=== PATIENT | female | born 1930 | race Caucasian/White ===

== ENCOUNTER 2017-10-02 10:52 | Inpatient (IN) | payer MEDICARE, OTHER ==
[~2017-10-02] VITALS: Ht 175.3 cm; Wt 89.3 kg
[~2017-10-02 10:52] MED LIST: ACET325 PO; ACET500 PO; ALBU2SYA PO; ALBU3IS INH; ALBU90OI INH; ALBU90OI6 INH; ALBU90OI61 INH; AMOX875 PO; ASCO500 PO; ATOR40TA PO; ATOR80 PO; AZIT250 PO; Ativan1 MG PO; BISA10S PR; CALCAVITDA PO; CALCIT950 PO; CEFP200 PO; CEFU500 PO; CEPH500 PO; CVS DISPOSABLE399 ML PR; Calcium-Mag-Zi1 EACH PO; Colace100 MG PO; DIGO.125 PO; DIGOX125 MCG PO; DILT120 PO; DOCU100 PO; DULERA 200 MCG/13 GM; DULERA 200 MCG/13 GM INH; ELIQUIS2.5 MG; FERR325; FLUSAL1005 IH; FLUSAL2505 IH; FLUSAL2505 INH; Ferrous Sulfat325 M2 PO; GABA300 PO; GABA300T24 PO; GEMF600 PO; Glucosamine-Ch1 EA23 PO; HYDACE10 PO; HYDACE10B PO; HYDACE5 PO; HYDR1TAB94 PO; INSLIS75I; INSU100I6 SC; IRON 65MG PO; LAVAP17G PO; LEVFLO250 PO; LEVFLO500 PO; LEVSOD75 PO; LISI10; LORA1 PO; MAGOXI400 PO; MECL25 PO; MEPRAZOLE; METO25 PO; METO50 PO; METO50ER PO; MULTIVITAMIN; MULVIT PO; MULVITMINF PO; Milk Of Ma800 MG/5 M PO; Millipred5 MG PO; NABU500 PO; OMEP20ER PO; OMEP40CA12 PO; ONDA8ODT MM; ONGLYZA2.5 MG PO; OXYC5 PO; OXYGEN; Omeprazole20 M1; Omeprazole20 M1 PO; PRED10 PO; PRED20 PO; Percocet 5-3251 EACH PO; Prednisone20 MG PO; Prilosec Otc20 MG PO; QUET100 PO; QUET200 PO; QUET25 PO; QUET300; QUET300 PO; SACC250C PO; SAXA2.5T PO; SERT50 PO; SIMV40; SIMV40 PO; SIMVASTATIN; SPIRIVA; Senna8.6 MG PO; Seroquel25 MG PO; TIOT18 INH; TRADJENTA5 MG PO; Tylenol325 MG PO; VENL37.5 PO; VENL37.5ER; VENL37.5ER PO; VENL75ER PO; VITAMIN D-32000 UNIT PO; Venlafaxine HCl75 MG PO; Ventolin5 MG/1 ML IH; Vitamin C100 MG/ML PO; WARF2 PO; WARF2.5 PO; WARF3 PO; WARF5 PO; XARELTO15 MG PO; XARELTO20 MG PO; Zithromax250 MG PO; [UNRECOGNIZED DRUG - OTHER] PO
[2017-10-02 11:22] LABS: BASOPHILS ABSOLUTE AUTO 0.04 K/mm3 (0.00-0.23); BASOPHILS PERCENT AUTO 1 % (0-2); EOSINOPHILS ABSOLUTE AUTO 0.03 K/mm3 (0.00-0.68); EOSINOPHILS PERCENT AUTO 1 % (0-6); Hematocrit 37.5 % (33.0-51.0); Hemoglobin 12.5 g/dL (11.5-16.0); IMMATURE GRAN ABSOLUTE AUTO 0.02 K/mm3 (0.00-0.10); IMMATURE GRAN PERCENT AUTO 0 % (0-1); LYMPHOCYTES PERCENT AUTO 5 % (21-46); MONOCYTES ABSOLUTE AUTO 0.45 K/mm3 (0.16-1.47); MONOCYTES PERCENT AUTO 7 % (4-13); Mean Corpuscular HGB 34.6 pg (26.0-34.0); Mean Corpuscular HGB Conc 33.3 g/dL (31.5-36.5); Mean Corpuscular Volume 104 fL (80-100); Mean Platelet Volume 11.1 fL (9.1-12.4); NEUTROPHILS ABSOLUTE AUTO 5.53 K/mm3 (1.96-9.15); NEUTROPHILS PERCENT AUTO 87 % (41-73); Platelet Count 110 K/mm3 (150-400); RDW Coefficient Variation 13.9 % (11.7-14.2); RDW Standard Deviation 53.4 fL (35.1-46.3); Red Blood Cell Count 3.61 M/mm3 (3.80-5.20); White Blood Cell Count 6.37 K/mm3 (4.00-11.30)
[2017-10-02 11:39] LABS: Albumin, Blood 3.6 g/dL (3.4-5.0); Albumin/Globulin Ratio 1.1 (0.8-1.8); Bilirubin, Total 1.3 mg/dL (0.1-1.0); Bun/Creatinine Ratio 13.9 (12.0-20.0); Calcium, Blood 8.9 mg/dL (8.5-10.1); Creatinine, Blood 1.22 mg/dL (0.40-1.00); Globulin, Blood 3.4 g/dL (2.2-4.0); Potassium, Blood 4.3 mmol/L (3.5-5.5); Troponin I 0.029 ng/mL (0.000-0.040)
[2017-10-02 12:51] LABS: PCO2 Arterial 38.9 mmHg (35-45); PO2 Arterial 63.8 mmHg (80-100); pH Blood Arterial 7.46 (7.35-7.45)
[2017-10-02] MEDS ORDERED: Nortriptyline H10 MG PO (13:09)
[2017-10-02] MEDS ORDERED: TRAZ50 PO (13:09)
[2017-10-02 16:53] LABS: Performing Lab VAMCL; Test Name PT
[2017-10-02 18:10] LABS: Source, Urine Clean Catch
[2017-10-02 18:16] LABS: Bilirubin, Urine Neg (Neg); Blood, Urine 1+ (Neg); Glucose Qualitative, Urine Neg (Neg); Ketones, Urine Neg (Neg); Leukocyte Esterase, Urine 2+ (Neg); Nitrite, Urine Neg (Neg); Protein, Urine 2+ (Neg); Specific Gravity, Urine 1.015 (1.003-1.022); Urobilinogen, Urine NORM (Normal)
[2017-10-02 18:30] LABS: Appearance, Urine Clear (Clear); Color, Urine Yellow (P-Yellow)
[2017-10-02 18:32] LABS: Bacteria Not Seen /hpf; Red Blood Cells, Urine Not Seen /hpf (0-2); Squamous Epithelial Cells Few /hpf (Few)
[2017-10-03 05:00] LABS: BASOPHILS ABSOLUTE AUTO 0.01 K/mm3 (0.00-0.23); BASOPHILS PERCENT AUTO 0 % (0-2); EOSINOPHILS PERCENT AUTO 0 % (0-6); Hematocrit 36.7 % (33.0-51.0); Hemoglobin 12.4 g/dL (11.5-16.0); IMMATURE GRAN ABSOLUTE AUTO 0.01 K/mm3 (0.00-0.10); IMMATURE GRAN PERCENT AUTO 0 % (0-1); LYMPHOCYTES ABSOLUTE AUTO 0.19 K/mm3 (0.84-5.20); LYMPHOCYTES PERCENT AUTO 4 % (21-46); MONOCYTES ABSOLUTE AUTO 0.17 K/mm3 (0.16-1.47); MONOCYTES PERCENT AUTO 3 % (4-13); Mean Corpuscular HGB 34.7 pg (26.0-34.0); Mean Corpuscular HGB Conc 33.8 g/dL (31.5-36.5); Mean Corpuscular Volume 103 fL (80-100); NEUTROPHILS ABSOLUTE AUTO 4.57 K/mm3 (1.96-9.15); NEUTROPHILS PERCENT AUTO 92 % (41-73); Platelet Count 111 K/mm3 (150-400); RDW Coefficient Variation 13.8 % (11.7-14.2); RDW Standard Deviation 52.6 fL (35.1-46.3); Red Blood Cell Count 3.57 M/mm3 (3.80-5.20); White Blood Cell Count 4.95 K/mm3 (4.00-11.30)
[2017-10-03 05:24] LABS: Albumin, Blood 3.4 g/dL (3.4-5.0); Bilirubin, Total 0.9 mg/dL (0.1-1.0); Bun/Creatinine Ratio 18.5 (12.0-20.0); Calcium, Blood 8.9 mg/dL (8.5-10.1); Creatinine, Blood 1.3 mg/dL (0.40-1.00); Globulin, Blood 3.4 g/dL (2.2-4.0); Potassium, Blood 4.2 mmol/L (3.5-5.5); Total Protein, Blood 6.8 g/dL (6.4-8.2)
[2017-10-03 08:33] LABS: International Normalized Ratio 1.39; Prothrombin Time Results 14.1 Sec (9.7-11.5)
[2017-10-04 05:38] LABS: International Normalized Ratio 1.52; Prothrombin Time Results 15.3 Sec (9.7-11.5)
[2017-10-05 05:13] LABS: International Normalized Ratio 1.94; Prothrombin Time Results 19.2 Sec (9.7-11.5)
[2017-10-05 08:57] LABS: BASOPHILS ABSOLUTE AUTO 0.01 K/mm3 (0.00-0.23); BASOPHILS PERCENT AUTO 0 % (0-2); EOSINOPHILS PERCENT AUTO 0 % (0-6); Hematocrit 38.8 % (33.0-51.0); Hemoglobin 12.8 g/dL (11.5-16.0); IMMATURE GRAN ABSOLUTE AUTO 0.02 K/mm3 (0.00-0.10); IMMATURE GRAN PERCENT AUTO 0 % (0-1); LYMPHOCYTES ABSOLUTE AUTO 0.29 K/mm3 (0.84-5.20); LYMPHOCYTES PERCENT AUTO 5 % (21-46); MONOCYTES ABSOLUTE AUTO 0.25 K/mm3 (0.16-1.47); MONOCYTES PERCENT AUTO 5 % (4-13); Mean Corpuscular HGB 34.5 pg (26.0-34.0); Mean Corpuscular Volume 105 fL (80-100); NEUTROPHILS PERCENT AUTO 90 % (41-73); Platelet Count 164 K/mm3 (150-400); RDW Coefficient Variation 13.6 % (11.7-14.2); RDW Standard Deviation 52.9 fL (35.1-46.3); Red Blood Cell Count 3.71 M/mm3 (3.80-5.20); White Blood Cell Count 5.57 K/mm3 (4.00-11.30)
[2017-10-05 09:11] LABS: Albumin, Blood 3.3 g/dL (3.4-5.0); Albumin/Globulin Ratio 0.9 (0.8-1.8); Bilirubin, Total 0.4 mg/dL (0.1-1.0); Bun/Creatinine Ratio 23.2 (12.0-20.0); Calcium, Blood 8.7 mg/dL (8.5-10.1); Creatinine, Blood 1.51 mg/dL (0.40-1.00); Globulin, Blood 3.5 g/dL (2.2-4.0); Potassium, Blood 3.6 mmol/L (3.5-5.5); Total Protein, Blood 6.8 g/dL (6.4-8.2)
[2017-10-06 05:04] LABS: International Normalized Ratio 2.73; Prothrombin Time Results 26.6 Sec (9.7-11.5)
[2017-10-07 04:57] LABS: BASOPHILS PERCENT AUTO 0 % (0-2); EOSINOPHILS PERCENT AUTO 0 % (0-6); Hematocrit 37.2 % (33.0-51.0); Hemoglobin 12.9 g/dL (11.5-16.0); IMMATURE GRAN ABSOLUTE AUTO 0.04 K/mm3 (0.00-0.10); IMMATURE GRAN PERCENT AUTO 1 % (0-1); LYMPHOCYTES ABSOLUTE AUTO 0.38 K/mm3 (0.84-5.20); LYMPHOCYTES PERCENT AUTO 7 % (21-46); MONOCYTES ABSOLUTE AUTO 0.27 K/mm3 (0.16-1.47); MONOCYTES PERCENT AUTO 5 % (4-13); Mean Corpuscular HGB 34.7 pg (26.0-34.0); Mean Corpuscular HGB Conc 34.7 g/dL (31.5-36.5); Mean Platelet Volume 11.3 fL (9.1-12.4); NEUTROPHILS ABSOLUTE AUTO 4.56 K/mm3 (1.96-9.15); NEUTROPHILS PERCENT AUTO 87 % (41-73); Platelet Count 176 K/mm3 (150-400); RDW Coefficient Variation 13.1 % (11.7-14.2); RDW Standard Deviation 48.4 fL (35.1-46.3); Red Blood Cell Count 3.72 M/mm3 (3.80-5.20); White Blood Cell Count 5.25 K/mm3 (4.00-11.30)
[2017-10-07 04:58] LABS: Mean Corpuscular Volume 100 fL (80-100)
[2017-10-07 05:14] LABS: Prothrombin Time Results 40.5 Sec (9.7-11.5)
[2017-10-07 05:16] LABS: Albumin, Blood 3.1 g/dL (3.4-5.0); Albumin/Globulin Ratio 0.9 (0.8-1.8); Bilirubin, Total 0.5 mg/dL (0.1-1.0); Bun/Creatinine Ratio 33.6 (12.0-20.0); Creatinine, Blood 1.43 mg/dL (0.40-1.00); Globulin, Blood 3.3 g/dL (2.2-4.0); Potassium, Blood 3.1 mmol/L (3.5-5.5); Total Protein, Blood 6.4 g/dL (6.4-8.2)
[2017-10-07 05:17] LABS: International Normalized Ratio 4.27
[2017-10-08 04:34] LABS: BASOPHILS PERCENT AUTO 0 % (0-2); EOSINOPHILS PERCENT AUTO 0 % (0-6); Hematocrit 38.3 % (33.0-51.0); Hemoglobin 13.1 g/dL (11.5-16.0); IMMATURE GRAN ABSOLUTE AUTO 0.07 K/mm3 (0.00-0.10); IMMATURE GRAN PERCENT AUTO 1 % (0-1); LYMPHOCYTES ABSOLUTE AUTO 0.35 K/mm3 (0.84-5.20); LYMPHOCYTES PERCENT AUTO 5 % (21-46); MONOCYTES ABSOLUTE AUTO 0.25 K/mm3 (0.16-1.47); MONOCYTES PERCENT AUTO 4 % (4-13); Mean Corpuscular HGB 34.1 pg (26.0-34.0); Mean Corpuscular HGB Conc 34.2 g/dL (31.5-36.5); Mean Corpuscular Volume 100 fL (80-100); Mean Platelet Volume 11.2 fL (9.1-12.4); NEUTROPHILS ABSOLUTE AUTO 5.76 K/mm3 (1.96-9.15); NEUTROPHILS PERCENT AUTO 90 % (41-73); Platelet Count 194 K/mm3 (150-400); RDW Coefficient Variation 13.1 % (11.7-14.2); RDW Standard Deviation 47.5 fL (35.1-46.3); Red Blood Cell Count 3.84 M/mm3 (3.80-5.20); White Blood Cell Count 6.43 K/mm3 (4.00-11.30)
[2017-10-08 04:50] LABS: Bun/Creatinine Ratio 33.3 (12.0-20.0); Calcium, Blood 8.1 mg/dL (8.5-10.1); Creatinine, Blood 1.65 mg/dL (0.40-1.00)
[2017-10-08 04:51] LABS: Prothrombin Time Results 54.2 Sec (9.7-11.5)
[2017-10-08 04:56] LABS: International Normalized Ratio 5.81
[2017-10-09 05:01] LABS: Prothrombin Time Results 54.4 Sec (9.7-11.5)
[2017-10-09 05:04] LABS: International Normalized Ratio 5.84
[2017-10-09 08:55] LABS: Bun/Creatinine Ratio 44.1 (12.0-20.0); Calcium, Blood 8.5 mg/dL (8.5-10.1); Creatinine, Blood 1.43 mg/dL (0.40-1.00); Potassium, Blood 3.9 mmol/L (3.5-5.5)
[2017-10-10 08:22] LABS: Prothrombin Time Results 38.8 Sec (9.7-11.5)
[2017-10-10 08:31] LABS: Bun/Creatinine Ratio 46.1 (12.0-20.0); Calcium, Blood 8.7 mg/dL (8.5-10.1); Creatinine, Blood 1.41 mg/dL (0.40-1.00); Potassium, Blood 4.4 mmol/L (3.5-5.5)
[2017-10-10 08:44] LABS: International Normalized Ratio 4.08
[2017-10-10] MEDS ORDERED: FLONASE ALLERG9.9 ML (16:57)
[2017-10-10] MEDS ORDERED: FURO40 PO (16:57)
[2017-10-10] MEDS ORDERED: Effer-K 10 Meq10 MEQ PO (16:59)
[2017-10-10] MEDS ORDERED: LEVEMIR FL100 UNIT/1 SC (16:59)
[2017-10-10] MEDS ORDERED: PRED20 PO (17:09)
[2017-10-10] MEDS ORDERED: TEMA15 PO (17:09)
[2017-10-10] MEDS ORDERED: FLUT1DIS5 INH (17:25)
[2017-10-10] MEDS ORDERED: POTCHL10ER PO (17:36)
== END 2017-10-10 18:40 | disposition home or self-care (01) | DRG 193 ==
LOC: ER 10:52 → MEDS 12:32
PROVIDERS: Emergency Medicine; Internal Medicine; Internal Medicine Endocrinology, Diabetes & Metabolism; Pharmacist
DX: J18.9 Pneumonia, unspecified organism (principal); J96.21 Acute and chronic respiratory failure with hypoxia; I50.33 Acute on chronic diastolic (congestive) heart failure; J44.1 Chronic obstructive pulmonary disease with (acute) exacerbation; I13.0 Hypertensive heart and chronic kidney disease with heart failure and stage 1 through stage 4 chronic kidney disease, or unspecified chronic kidney disease; Z86.711 Personal history of pulmonary embolism; Z79.01 Long term (current) use of anticoagulants; Z99.81 Dependence on supplemental oxygen; E11.22 Type 2 diabetes mellitus with diabetic chronic kidney disease; N18.3 Chronic kidney disease, stage 3 (moderate); E78.5 Hyperlipidemia, unspecified; D50.9 Iron deficiency anemia, unspecified; K21.9 Gastro-esophageal reflux disease without esophagitis; I48.0 Paroxysmal atrial fibrillation; Z86.73 Personal history of transient ischemic attack (TIA), and cerebral infarction without residual deficits; D69.6 Thrombocytopenia, unspecified; I25.10 Atherosclerotic heart disease of native coronary artery without angina pectoris; I48.2 Chronic atrial fibrillation
CPT/HCPCS: 36415; 36416; 36600; 71046; 80048; 80053; 81001; 82803; 82947; 83605; 83880; 84484; 85025; 85610; 87040; 87086; 93005; 93010; 94640; 94644; 94664; 94667; 94668; 94760; 96374; 96375; 97116; 97161; 98960; 99285; G8978; G8979; G8980; J0456; J0696; J1815; J1817; J1940; J2920; J2930; J3430; J7030; J7050

== ENCOUNTER 2018-06-07 13:24 | Observation (INO) | payer MEDICARE, OTHER ==
[~2018-06-07] VITALS: Ht 177.8 cm; Wt 83.4 kg
[~2018-06-07 13:24] MED LIST changes: +Effer-K 10 Meq10 MEQ PO; +FLONASE ALLERG9.9 ML; +FLUT1DIS5 INH; +FURO40 PO; +LEVEMIR FL100 UNIT/1 SC; +Nortriptyline H10 MG PO; +POTCHL10ER PO; +TEMA15 PO; +TRAZ50 PO
[2018-06-07 13:57] LABS: BASOPHILS ABSOLUTE AUTO 0.04 K/mm3 (0.00-0.23); BASOPHILS PERCENT AUTO 1 % (0-2); EOSINOPHILS ABSOLUTE AUTO 0.13 K/mm3 (0.00-0.68); EOSINOPHILS PERCENT AUTO 3 % (0-6); Hematocrit 40.5 % (33.0-51.0); Hemoglobin 13.4 g/dL (11.5-16.0); IMMATURE GRAN ABSOLUTE AUTO 0.01 K/mm3 (0.00-0.10); IMMATURE GRAN PERCENT AUTO 0 % (0-1); LYMPHOCYTES ABSOLUTE AUTO 1.29 K/mm3 (0.84-5.20); LYMPHOCYTES PERCENT AUTO 29 % (21-46); MONOCYTES ABSOLUTE AUTO 0.28 K/mm3 (0.16-1.47); MONOCYTES PERCENT AUTO 6 % (4-13); Mean Corpuscular HGB 34.7 pg (26.0-34.0); Mean Corpuscular HGB Conc 33.1 g/dL (31.5-36.5); Mean Corpuscular Volume 105 fL (80-100); Mean Platelet Volume 9.8 fL (9.1-12.4); NEUTROPHILS ABSOLUTE AUTO 2.76 K/mm3 (1.96-9.15); NEUTROPHILS PERCENT AUTO 61 % (41-73); NRBC ABSOLUTE 0.02 K/mm3 (0.00-0.02); NRBC Auto 0.4 /100 WBC (0.0-0.2); Platelet Count 162 K/mm3 (150-400); RDW Coefficient Variation 15.8 % (11.7-14.2); RDW Standard Deviation 59.7 fL (35.1-46.3); Red Blood Cell Count 3.86 M/mm3 (3.80-5.20); White Blood Cell Count 4.51 K/mm3 (4.00-11.30)
[2018-06-07] MEDS ORDERED: PRAZ1 PO (13:57)
[2018-06-07 14:10] LABS: Alanine Aminotransfer (ALT/SGP 40 U/L (12-78); Albumin, Blood 3.5 g/dL (3.4-5.0); Albumin/Globulin Ratio 1.2 (0.8-1.8); Alk Phos 114 U/L (50-136); Anion Gap 9 mmol/L (6-16); Aspartate Aminotrans (AST/SGOT 33 U/L (12-37); Bilirubin, Total 0.5 mg/dL (0.1-1.0); Blood Urea Nitrogen 27 mg/dL (8-24); Bun/Creatinine Ratio 22.9 (12.0-20.0); CO2, Blood 27 mmol/L (21-32); Calcium, Blood 8.8 mg/dL (8.5-10.1); Chloride, Blood 104 mmol/L (98-108); Creatinine, Blood 1.18 mg/dL (0.40-1.00); Globulin, Blood 2.9 g/dL (2.2-4.0); Glomerular Filtration Rate 46 (60-); Glucose, Blood 88 mg/dL (70-99); Potassium, Blood 4.4 mmol/L (3.5-5.5); Sodium, Blood 140 mmol/L (136-145); Total Protein, Blood 6.4 g/dL (6.4-8.2); Troponin I <0.015 ng/mL (0.000-0.040)
[2018-06-07 14:42] LABS: Prothrombin Time Results 49.8 Sec (9.7-11.5)
[2018-06-07 15:03] LABS: International Normalized Ratio 5.48
[2018-06-07 16:46] LABS: Magnesium, Blood 1.9 mg/dL (1.6-2.4)
[2018-06-07 16:49] LABS: Thyroid Stimulating Hormone 1.13 uIU/mL (0.360-4.800)
--- NOTE | 2018-06-07 17:23 | NUR ---
Report received from ERROL Aguial. anticipate arrival of pt to PCU 16 shortly.
[2018-06-07] MEDS ORDERED: VITAMIN K-1500 MCG SL (17:55)
--- NOTE | 2018-06-07 19:14 | NUR ---
Received the pt from the ED in good mood, pleasantly conversant, and without complaints of discomfort or pain; however, upon assessment she states that she is still having some mild pressure in her chest, like "someone is sitting on my chest". Nitroglycerin paste applied as ordered. The pt states that the sublingual NTG relieved her pain in the ED, and did not give her a headache. Vital signs are stable. No evidence of dyspnea, tachypnea at rest. She was very hungry she said, and ate all of her dinner tray without any nausea/vomiting. Purple armband applied as the pt did confirm her wishes for "DNR" status.
[2018-06-08 02:58] LABS: Bun/Creatinine Ratio 25.2 (12.0-20.0); Calcium, Blood 8.3 mg/dL (8.5-10.1); Creatinine, Blood 1.39 mg/dL (0.40-1.00); Potassium, Blood 4.2 mmol/L (3.5-5.5)
[2018-06-08 02:59] LABS: Prothrombin Time Results 43.2 Sec (9.7-11.5)
[2018-06-08 03:00] LABS: International Normalized Ratio 4.69
--- NOTE | 2018-06-08 05:15 | NUR ---
SHIFT SUMMARY: PATIENT C/O 05/01 CHEST PRESSURE BEGINNING OF SHIFT, AFTER SLEEP MEDICATION AND RELAXATION TECHNIQUES PATIENT ACHIEVED FULL PAIN RELIEF FOR REMAINDER OF SHIFT. VSS, CALL LIGHT WITHIN REACH, BED LOW AND LOCKED.
[2018-06-08] MEDS ORDERED: ASPI81CH PO (10:22)
[2018-06-08] MEDS ORDERED: NITR.4SL PO (10:23)
[2018-06-08] MEDS ORDERED: ALUM-MAG HYDRO360 ML PO (10:24)
--- NOTE | 2018-06-08 13:23 | NUR ---
discharge Pt discharged home. Pt spouce had the car keys. car was parked out back. Needed to wait for her to get here with the keys. Had to use the distress horn button to locate her car because she didn't recognize it. This nurse had to guide her throught he parking lot. Her spouce is a very sharp baron man with a four wheeled walker. As this nusre was w/c her out she started crying becuase she "didn't" have a heart attack. Pt seems very unhappy and forgetful. Continue pot.
== END 2018-06-08 13:11 | disposition home or self-care (01) ==
LOC: ER 13:24 → PCU 13:25
PROVIDERS: Emergency Medicine; Nurse Practitioner Acute Care; ADMIT Internal Medicine
DX: R07.9 Chest pain, unspecified (principal); I48.2 Chronic atrial fibrillation; J44.9 Chronic obstructive pulmonary disease, unspecified; I10 Essential (primary) hypertension; N18.3 Chronic kidney disease, stage 3 (moderate); J96.11 Chronic respiratory failure with hypoxia; I13.0 Hypertensive heart and chronic kidney disease with heart failure and stage 1 through stage 4 chronic kidney disease, or unspecified chronic kidney disease; I50.32 Chronic diastolic (congestive) heart failure; E11.22 Type 2 diabetes mellitus with diabetic chronic kidney disease; E78.5 Hyperlipidemia, unspecified; D50.9 Iron deficiency anemia, unspecified; K21.9 Gastro-esophageal reflux disease without esophagitis; M81.0 Age-related osteoporosis without current pathological fracture; M19.90 Unspecified osteoarthritis, unspecified site; Z88.1 Allergy status to other antibiotic agents; Z88.8 Allergy status to other drugs, medicaments and biological substances; Z79.899 Other long term (current) drug therapy; Z79.01 Long term (current) use of anticoagulants
CPT/HCPCS: 36415; 71046; 80048; 80053; 83735; 84443; 84484; 85025; 85610; 93005; 93010; 94760; 96374; 96375; 99285-25; G0378; J2405; J3010; J7030

== ENCOUNTER 2018-12-02 13:16 | Inpatient (IN) | payer MEDICARE, OTHER ==
[~2018-12-02] VITALS: Ht 175.3 cm; Wt 84.4 kg
[~2018-12-02 13:16] MED LIST changes: -ALBU90OI INH; +ALUM-MAG HYDRO360 ML PO; +ASPI81CH PO; -LEVSOD75 PO; -WARF2 PO; -WARF3 PO
[2018-12-02 13:43] LABS: BASOPHILS ABSOLUTE AUTO 0.05 K/mm3 (0.00-0.23); BASOPHILS PERCENT AUTO 1 % (0-2); EOSINOPHILS PERCENT AUTO 2 % (0-6); Hematocrit 34.4 % (33.0-51.0); Hemoglobin 11.5 g/dL (11.5-16.0); IMMATURE GRAN ABSOLUTE AUTO 0.02 K/mm3 (0.00-0.10); IMMATURE GRAN PERCENT AUTO 0 % (0-1); LYMPHOCYTES ABSOLUTE AUTO 2.08 K/mm3 (0.84-5.20); LYMPHOCYTES PERCENT AUTO 24 % (21-46); MONOCYTES ABSOLUTE AUTO 0.77 K/mm3 (0.16-1.47); MONOCYTES PERCENT AUTO 9 % (4-13); Mean Corpuscular HGB 34.3 pg (26.0-34.0); Mean Corpuscular HGB Conc 33.4 g/dL (31.5-36.5); Mean Corpuscular Volume 103 fL (80-100); Mean Platelet Volume 10.9 fL (9.1-12.4); NEUTROPHILS ABSOLUTE AUTO 5.74 K/mm3 (1.96-9.15); NEUTROPHILS PERCENT AUTO 65 % (41-73); Platelet Count 218 K/mm3 (150-400); RDW Standard Deviation 55.8 fL (35.1-46.3); Red Blood Cell Count 3.35 M/mm3 (3.80-5.20); White Blood Cell Count 8.86 K/mm3 (4.00-11.30)
[2018-12-02 13:58] LABS: Base Excess Venous 1.8 mmol/L; Bicarbonate Venous 25.9 mmol/L (24.0-30.0); PCO2 Venous 37.2 mmHg (38-42); PO2 Venous 62.3 mmHg (38-42); pH Blood Venous 7.45 (7.34-7.37)
[2018-12-02 14:03] LABS: International Normalized Ratio 2.3; Prothrombin Time Results 22.6 Sec (9.7-11.5)
[2018-12-02 14:26] LABS: Troponin I <0.015 ng/mL (0.000-0.040)
[2018-12-02 14:28] LABS: Alanine Aminotransfer (ALT/SGP 44 U/L (12-78); Albumin, Blood 3.8 g/dL (3.4-5.0); Albumin/Globulin Ratio 1.2 (0.8-1.8); Alk Phos 125 U/L (50-136); Anion Gap 10 mmol/L (6-16); Aspartate Aminotrans (AST/SGOT 37 U/L (12-37); Bilirubin, Total 0.9 mg/dL (0.1-1.0); Blood Urea Nitrogen 39 mg/dL (8-24); Bun/Creatinine Ratio 20.7 (12.0-20.0); CO2, Blood 26 mmol/L (21-32); Calcium, Blood 9.7 mg/dL (8.5-10.1); Chloride, Blood 99 mmol/L (98-108); Creatinine, Blood 1.88 mg/dL (0.40-1.00); Globulin, Blood 3.2 g/dL (2.2-4.0); Glomerular Filtration Rate 27 (60-); Glucose, Blood 83 mg/dL (70-99); Potassium, Blood 5.3 mmol/L (3.5-5.5); Sodium, Blood 135 mmol/L (136-145)
[2018-12-02] MEDS ORDERED: Lipitor80 MG PO (15:14)
[2018-12-02] MEDS ORDERED: Amlodipine Besy10 MG PO (15:14)
[2018-12-02] MEDS ORDERED: BUDE10.22 INH (15:15)
[2018-12-02] MEDS ORDERED: BUPROPION XL150 MG PO (15:16)
[2018-12-02] MEDS ORDERED: ESCI10 PO (15:17)
[2018-12-02] MEDS ORDERED: METO50 PO (15:18)
[2018-12-02] MEDS ORDERED: LEVSOD100 PO (15:18)
[2018-12-02] MEDS ORDERED: Nitrostat0.3 MG SL (15:19)
[2018-12-02] MEDS ORDERED: OXYC5 PO (15:20)
[2018-12-02] MEDS ORDERED: PRAZ1 PO (15:21)
[2018-12-02] MEDS ORDERED: WARF3 PO (15:22)
[2018-12-02] MEDS ORDERED: WARF2 PO (15:22)
[2018-12-02] MEDS ORDERED: ALBU90OI INH (15:39)
[2018-12-02] MEDS ORDERED: Vitamin K100 MCG PO (15:40)
[2018-12-02] MEDS ORDERED: Ferrous Sulfat325 M2 PO (15:40)
[2018-12-02] MEDS ORDERED: ASCORBIC ACID PO (15:41)
[2018-12-02] MEDS ORDERED: HYDROCHLOROTHIAZIDE PO (15:44)
[2018-12-02] MEDS ORDERED: OSTEO BI-FLEX PO (15:45)
[2018-12-02] MEDS ORDERED: Nystatin15 GM TOP (15:45)
--- NOTE | 2018-12-02 18:51 | NUR ---
PT ADMITTED FROM ED 1712 VIA STRETCHER- BED SLIDE TX. PT IS ALERT AND ORIENTED. GOT UP TO BSC 2 SBA, VERY POOR COORDINATION AND SIGNIFICANT WEAKNESS, UNABLE TO AMBULATE. VOIDED BSC LG AMOUNT. O2 2L, EXERTIONAL DYNPNEA. ORIENTED TO ROOM SET UP AND SAFETY, GOT WATER.
--- NOTE | 2018-12-03 01:49 | NUR ---
12/02/18 8925 Kell Acosta notified of pt increased lactic acid of 3.2. Orders received. 2300 Pt started on slow 100cc an hour NS bolus for a total of 500cc. Pt educated why she was getting fluids. Pt agrees.
[2018-12-03 05:06] LABS: BASOPHILS PERCENT AUTO 0 % (0-2); EOSINOPHILS PERCENT AUTO 0 % (0-6); Hematocrit 27.9 % (33.0-51.0); Hemoglobin 9.2 g/dL (11.5-16.0); IMMATURE GRAN PERCENT AUTO 0 % (0-1); LYMPHOCYTES ABSOLUTE AUTO 0.17 K/mm3 (0.84-5.20); LYMPHOCYTES PERCENT AUTO 7 % (21-46); MONOCYTES ABSOLUTE AUTO 0.06 K/mm3 (0.16-1.47); MONOCYTES PERCENT AUTO 2 % (4-13); Mean Corpuscular HGB 33.5 pg (26.0-34.0); Mean Corpuscular Volume 102 fL (80-100); Mean Platelet Volume 10.1 fL (9.1-12.4); NEUTROPHILS PERCENT AUTO 91 % (41-73); Platelet Count 130 K/mm3 (150-400); RDW Coefficient Variation 15.2 % (11.7-14.2); Red Blood Cell Count 2.75 M/mm3 (3.80-5.20); White Blood Cell Count 2.53 K/mm3 (4.00-11.30)
--- NOTE | 2018-12-03 05:09 | NUR ---
Rn summary: Patient is alert and oriented. Pt up to BSC this am with 2 assist. Pt continues to be SOB with activity and has generalized weakness. Pt remains on 2 liters O2, sats 93-94% at rest, did dip to 88% whan up to BSC. Pt has long history of insomnia. Pt did rest 2 hours after melatonin 3mg given tonight. Pt continues with generalized edema in hips and legs. Pt states she feels a little better this am. Call light in reach.
[2018-12-03 05:20] LABS: International Normalized Ratio 1.93; Prothrombin Time Results 19.3 Sec (9.7-11.5)
[2018-12-03 05:31] LABS: Albumin, Blood 2.9 g/dL (3.4-5.0); Bilirubin, Total 0.7 mg/dL (0.1-1.0); Bun/Creatinine Ratio 23.1 (12.0-20.0); Calcium, Blood 8.6 mg/dL (8.5-10.1); Creatinine, Blood 1.99 mg/dL (0.40-1.00); Globulin, Blood 2.9 g/dL (2.2-4.0); Magnesium, Blood 2.6 mg/dL (1.6-2.4); Potassium, Blood 5.6 mmol/L (3.5-5.5); Total Protein, Blood 5.8 g/dL (6.4-8.2)
--- NOTE | 2018-12-03 07:45 | NUR ---
CALLED DR. SANDOVAL TO REPORT PT'S GFR, BUN AND CREATININE. NO NEW ORDERS RECEIVED.
[2018-12-03 13:22] LABS: Adenovirus Not Detected (NOT DETECT); Bordetella pertussis Not Detected (NOT DETECT); Chlamydophila pneumoniae Not Detected (NOT DETECT); Coronavirus 229E Not Detected (NOT DETECT); Coronavirus HKU1 Not Detected (NOT DETECT); Coronavirus NL63 Not Detected (NOT DETECT); Coronavirus OC43 Not Detected (NOT DETECT); Human Metapneumovirus Not Detected (NOT DETECT); Human Rhinovirus/Enterovirus Not Detected (NOT DETECT); Influenza A Not Detected (NOT DETECT); Influenza A/2009-H1 Not Detected (NOT DETECT); Influenza A/H1 Not Detected (NOT DETECT); Influenza A/H3 Not Detected (NOT DETECT); Influenza B Not Detected (NOT DETECT); Mycoplasma pneumoniae Not Detected (NOT DETECT); Parainfluenza Virus 1 Not Detected (NOT DETECT); Parainfluenza Virus 2 Not Detected (NOT DETECT); Parainfluenza Virus 3 Not Detected (NOT DETECT); Parainfluenza Virus 4 Not Detected (NOT DETECT); Respiratory Syncytial Virus Not Detected (NOT DETECT)
[2018-12-03 13:32] LABS: Bun/Creatinine Ratio 24.7 (12.0-20.0); Calcium, Blood 8.9 mg/dL (8.5-10.1); Creatinine, Blood 1.9 mg/dL (0.40-1.00); Potassium, Blood 5.3 mmol/L (3.5-5.5)
--- NOTE | 2018-12-03 15:19 | NUR ---
Upon receiving an admit referral, I visited patient and I found patient is lying in bed and alert. Patient openly shares about her medical struggles, her yazdanism journey ([facility] to [facility] to [place]) and her emotional struggles brought on by her physical limitations. As we were talking and therapeutic alliance was being established my time was cut short by a patient's pressing doctor visit. I will continue to remain available to patient and family.
--- NOTE | 2018-12-03 17:26 | NUR ---
SHIFT SUMMARY OX3; 1 PERSON ASSIST TO BSC. DENIES ANY PAIN. BUN AND CREATININE ELEVATED GFR DECREASED. CONTINUOUS BIOX. EATING AND DRINKING WELL. COUMADIN THERAPY. ESSENTIAL TREMOR. APPEARS STRONGER TODAY THAN FROM PREVIOUS SHIFT REPORT.
[2018-12-04 04:52] LABS: BASOPHILS PERCENT AUTO 0 % (0-2); EOSINOPHILS ABSOLUTE AUTO 0.01 K/mm3 (0.00-0.68); EOSINOPHILS PERCENT AUTO 0 % (0-6); Hematocrit 28.7 % (33.0-51.0); Hemoglobin 9.1 g/dL (11.5-16.0); IMMATURE GRAN ABSOLUTE AUTO 0.02 K/mm3 (0.00-0.10); IMMATURE GRAN PERCENT AUTO 0 % (0-1); LYMPHOCYTES ABSOLUTE AUTO 0.53 K/mm3 (0.84-5.20); LYMPHOCYTES PERCENT AUTO 9 % (21-46); MONOCYTES ABSOLUTE AUTO 0.47 K/mm3 (0.16-1.47); MONOCYTES PERCENT AUTO 8 % (4-13); Mean Corpuscular HGB 33.5 pg (26.0-34.0); Mean Corpuscular HGB Conc 31.7 g/dL (31.5-36.5); Mean Platelet Volume 10.6 fL (9.1-12.4); NEUTROPHILS PERCENT AUTO 82 % (41-73); Platelet Count 136 K/mm3 (150-400); RDW Coefficient Variation 15.6 % (11.7-14.2); RDW Standard Deviation 59.8 fL (35.1-46.3); Red Blood Cell Count 2.72 M/mm3 (3.80-5.20); White Blood Cell Count 5.83 K/mm3 (4.00-11.30)
[2018-12-04 04:55] LABS: Mean Corpuscular Volume 106 fL (80-100)
[2018-12-04 05:08] LABS: International Normalized Ratio 1.91; Prothrombin Time Results 19.1 Sec (9.7-11.5)
[2018-12-04 05:21] LABS: Albumin, Blood 3.1 g/dL (3.4-5.0); Albumin/Globulin Ratio 1.2 (0.8-1.8); Bilirubin, Total 0.5 mg/dL (0.1-1.0); Bun/Creatinine Ratio 23.7 (12.0-20.0); Calcium, Blood 8.4 mg/dL (8.5-10.1); Creatinine, Blood 1.9 mg/dL (0.40-1.00); Globulin, Blood 2.5 g/dL (2.2-4.0); Potassium, Blood 4.4 mmol/L (3.5-5.5); Total Protein, Blood 5.6 g/dL (6.4-8.2)
--- NOTE | 2018-12-04 06:06 | NUR ---
shift summary: Pt get short of breath with exertion when up to bedside commode. Recieving resp tx's from respiratory. Pt c/o arthritic pain in both shoulders. Pt given tylenol without much relief. called and was given order for oxycodone. Oxycodone giving adequate relief. Pt on 2 liters O2 nasal cannula. Lungs diminished.
--- NOTE | 2018-12-04 18:19 | NUR ---
SHIFT SUMMARY. A&OX4, PT IS PLEASANT AND COOPERATIVE, SBA TO BSC. PT DENIED THE NEED FOR PAIN MEDICATION THIS SHIFT. NO N/V, SOB. PT REPORTS BREATHING HAS IMPROVED TODAY. LUNGS CLEAR THROUGHOUT. NO NEW CHANGES OR CONCERNS.
--- NOTE | 2018-12-05 03:50 | NUR ---
SHIFT SUMMARY: 88 Y/O FEMALE RESTED COMFORTABLY ALL SHIFT, C/O LOW BACK PAIN 09/29 AND GIVEN OXYCODONE 5MG PO X 1 WITH RELIEF FELT, ABLE TRANSFER AND AMBULATE TO BSC WITHOUT ISSUES, +2 PITTING EDEMA NOTED BILATERAL LOWER EXTREMITIES, WEARING KNEE SCDS, ALERT AND ORIENTED X 4, BED LOW POSITION, CALL LIGHT AT SIDE, REPORT GIVEN TO ERROL LIEBERMAN.
--- NOTE | 2018-12-05 05:01 | NUR ---
12/05/18 0500 TOOK OVER PT'S CARE AT 0340 FORMER RN WAS SENT HOME. PT SLEEPING THIS AM. VITALS REMAIN STABLE. CALLS STAFF FOR HELP UP FOR VOIDING.
[2018-12-05 05:22] LABS: International Normalized Ratio 2.34
--- NOTE | 2018-12-05 18:23 | NUR ---
SHIFT SUMMARY. PT REPORTED WORSENING DYSPNEA THIS AM, WHEEZES THROUGHOUT, PRN NEB GIVEN BY RT. DR. WRAY STARTED THE PT ON IV LEVAQUIN, PT TOLERATED WITHOUT ISSUE. PT DENIED PAIN, N/V THIS SHIFT. GOOD MEAL INTAKE. SBA TO BSC SECONDARY TO LINES, PT HAS GOOD STRENGTH AND BALANCE. NO OTHER CHANGES.
--- NOTE | 2018-12-06 04:05 | NUR ---
SHIFT SUMMARY: 88 Y/O FEMALE RESTED COMFORTABLY ALL SHIFT WHILE WEARING O2 AT 2L/M PER NASAL CANNULA, NEBULIZER TREATMENT GIVEN PRN FOR SLIGHT DYSPNEA WHICH RESOLVED ISSUE (GIVEN BY RT), C/O LOW BACK PAIN RATED 6/10 WITH OXYCODONE 5MG PO GIVEN WITH RELIEF FELT, UTILIZING BSC X 1 STANDBY ASSIST, ALERT AND ORIENTED X4, DENIES NAUSEA, EAGER TO RETURN HOME, BED LOW POSITION, CALL LIGHT AT SIDE.
[2018-12-06 04:47] LABS: BASOPHILS ABSOLUTE AUTO 0.01 K/mm3 (0.00-0.23); BASOPHILS PERCENT AUTO 0 % (0-2); EOSINOPHILS ABSOLUTE AUTO 0.09 K/mm3 (0.00-0.68); EOSINOPHILS PERCENT AUTO 2 % (0-6); Hematocrit 29.8 % (33.0-51.0); Hemoglobin 9.6 g/dL (11.5-16.0); IMMATURE GRAN ABSOLUTE AUTO 0.02 K/mm3 (0.00-0.10); IMMATURE GRAN PERCENT AUTO 0 % (0-1); LYMPHOCYTES ABSOLUTE AUTO 0.39 K/mm3 (0.84-5.20); LYMPHOCYTES PERCENT AUTO 9 % (21-46); MONOCYTES ABSOLUTE AUTO 0.56 K/mm3 (0.16-1.47); MONOCYTES PERCENT AUTO 12 % (4-13); Mean Corpuscular HGB 33.9 pg (26.0-34.0); Mean Corpuscular HGB Conc 32.2 g/dL (31.5-36.5); Mean Corpuscular Volume 105 fL (80-100); Mean Platelet Volume 10.5 fL (9.1-12.4); NEUTROPHILS ABSOLUTE AUTO 3.54 K/mm3 (1.96-9.15); NEUTROPHILS PERCENT AUTO 77 % (41-73); Platelet Count 119 K/mm3 (150-400); RDW Standard Deviation 58.4 fL (35.1-46.3); Red Blood Cell Count 2.83 M/mm3 (3.80-5.20); White Blood Cell Count 4.61 K/mm3 (4.00-11.30)
[2018-12-06 05:07] LABS: Bun/Creatinine Ratio 21.2 (12.0-20.0); Calcium, Blood 8.4 mg/dL (8.5-10.1); Creatinine, Blood 1.32 mg/dL (0.40-1.00); International Normalized Ratio 1.99; Potassium, Blood 4.1 mmol/L (3.5-5.5); Prothrombin Time Results 19.8 Sec (9.7-11.5)
--- NOTE | 2018-12-06 17:54 | NUR ---
PATIENT IS ALERT AND ORIENTED AND COOPERATIVE WITH CARE. A NEW PERIPHERAL IV WAS PLACED IN HER RIGHT WRIST. SHE IS ON 1.5L O2 VIA NC. SHE IS 1PA TO [facility]. SHE SAT UP IN BED FOR BREAKFAST, SAT IN THE CHAIR FOR LUNCH AND SAT ON THE SIDE OF THE BED FOR DINNER. SHE CALLS APPROPRIATELY. REPORTS SHE IS FEELING BETTER TODAY. NO COMPLAINTS. WILL CONTINUE TO MONITOR
[2018-12-07 05:03] LABS: BASOPHILS ABSOLUTE AUTO 0.01 K/mm3 (0.00-0.23); BASOPHILS PERCENT AUTO 0 % (0-2); EOSINOPHILS ABSOLUTE AUTO 0.14 K/mm3 (0.00-0.68); EOSINOPHILS PERCENT AUTO 3 % (0-6); Hematocrit 28.9 % (33.0-51.0); Hemoglobin 9.3 g/dL (11.5-16.0); IMMATURE GRAN ABSOLUTE AUTO 0.02 K/mm3 (0.00-0.10); IMMATURE GRAN PERCENT AUTO 1 % (0-1); LYMPHOCYTES ABSOLUTE AUTO 0.46 K/mm3 (0.84-5.20); LYMPHOCYTES PERCENT AUTO 11 % (21-46); MONOCYTES ABSOLUTE AUTO 0.71 K/mm3 (0.16-1.47); MONOCYTES PERCENT AUTO 16 % (4-13); Mean Corpuscular HGB 33.3 pg (26.0-34.0); Mean Corpuscular HGB Conc 32.2 g/dL (31.5-36.5); Mean Corpuscular Volume 104 fL (80-100); Mean Platelet Volume 10.1 fL (9.1-12.4); NEUTROPHILS ABSOLUTE AUTO 2.98 K/mm3 (1.96-9.15); NEUTROPHILS PERCENT AUTO 69 % (41-73); Platelet Count 125 K/mm3 (150-400); RDW Coefficient Variation 14.6 % (11.7-14.2); RDW Standard Deviation 55.7 fL (35.1-46.3); Red Blood Cell Count 2.79 M/mm3 (3.80-5.20); White Blood Cell Count 4.32 K/mm3 (4.00-11.30)
[2018-12-07 05:24] LABS: International Normalized Ratio 1.82; Prothrombin Time Results 18.3 Sec (9.7-11.5)
[2018-12-07 05:30] LABS: Bun/Creatinine Ratio 18.4 (12.0-20.0); Calcium, Blood 8.3 mg/dL (8.5-10.1); Creatinine, Blood 1.25 mg/dL (0.40-1.00); Potassium, Blood 3.8 mmol/L (3.5-5.5)
[2018-12-07] MEDS ORDERED: ASCO500 PO (12:28)
[2018-12-07] MEDS ORDERED: ATOR40TA PO (12:29)
[2018-12-07] MEDS ORDERED: FURO20 PO (12:30)
[2018-12-07] MEDS ORDERED: LEVSOD75 PO (12:33)
[2018-12-07] MEDS ORDERED: METO50 PO (12:34)
[2018-12-07] MEDS ORDERED: CALCIUM 500 +1 EAC3 PO (12:40)
[2018-12-07] MEDS ORDERED: POTA10T PO (12:42)
[2018-12-07] MEDS ORDERED: ACET325 PO (12:46)
[2018-12-07] MEDS ORDERED: FAMO20 PO (12:47)
[2018-12-07] MEDS ORDERED: CEFP200 PO (12:47)
[2018-12-07] MEDS ORDERED: GUAI600T33 PO (12:49)
[2018-12-07] MEDS ORDERED: LEVO750 PO (12:50)
[2018-12-07] MEDS ORDERED: Ondansetron Odt8 MG PO (12:51)
[2018-12-07] MEDS ORDERED: Florastor250 MG PO (12:51)
--- NOTE | 2018-12-07 15:58 | NUR ---
PATIENT DISCHARGED PATIENT DISCHARGED HOME WITH AMBULANCE TRANSPORT. WITH MANAGER NUCLEAR PRESCRIPTIONS WITH [facility]SP[facility]. PT ON 1.5 L O2. HOSPITAL O2 TANK SENT HOME WITH PT. WHEEZING IS IMPROVED, STILL SOB WITH EXERTION. DC PACKET GIVEN TO PATIENT, NEW MEDS EXPLAINED. PT VERBALIZED UNDERSTANDING AND SIGNED FORM. 1500 ROCEPHIN INFUSED BEFORE IV TAKEN OUT.
--- NOTE | 2018-12-29 22:30 | NUR ---
LOOKED AT INFO FOR IRIS REPORT.
== END 2018-12-07 15:56 | disposition home health service (06) | DRG 193 ==
LOC: ER 13:16 → MEDS 15:20 → ENPENDDIS 12-07 11:26 → MEDS 12-07 15:56
PROVIDERS: Emergency Medicine; Family Medicine; Internal Medicine; ADMIT Internal Medicine
DX: J18.1 Lobar pneumonia, unspecified organism (principal); J96.21 Acute and chronic respiratory failure with hypoxia; I13.0 Hypertensive heart and chronic kidney disease with heart failure and stage 1 through stage 4 chronic kidney disease, or unspecified chronic kidney disease; J44.1 Chronic obstructive pulmonary disease with (acute) exacerbation; J44.0 Chronic obstructive pulmonary disease with (acute) lower respiratory infection; I50.32 Chronic diastolic (congestive) heart failure; N18.3 Chronic kidney disease, stage 3 (moderate); Z79.01 Long term (current) use of anticoagulants; I48.2 Chronic atrial fibrillation; I27.29 Other secondary pulmonary hypertension; E03.9 Hypothyroidism, unspecified; E87.5 Hyperkalemia; Z99.81 Dependence on supplemental oxygen; I50.812 Chronic right heart failure; E11.22 Type 2 diabetes mellitus with diabetic chronic kidney disease; Z86.711 Personal history of pulmonary embolism; Z86.718 Personal history of other venous thrombosis and embolism; F31.9 Bipolar disorder, unspecified; K21.9 Gastro-esophageal reflux disease without esophagitis; Z86.73 Personal history of transient ischemic attack (TIA), and cerebral infarction without residual deficits
CPT/HCPCS: 0099U; 36415; 71045; 80048; 80053; 82803; 83605; 83735; 83880; 84484; 85025; 85610; 87040; 93005; 93010; 94640; 94644; 94760; 94761; 94762; 96365; 99285-25; A9270; J0696; J1956; J7040; J7050

== ENCOUNTER 2018-12-17 09:27 | Emergency (ER) | payer OTHER, MEDICARE ==
[~2018-12-17] VITALS: Ht 165.1 cm; Wt 88.5 kg
[~2018-12-17 09:27] MED LIST changes: +ALBU90OI INH; +ASCORBIC ACID PO; +Amlodipine Besy10 MG PO; +BUDE10.22 INH; +BUPROPION XL150 MG PO; +CALCIUM 500 +1 EAC3 PO; +ESCI10 PO; +FAMO20 PO; +FURO20 PO; +Florastor250 MG PO; +GUAI600T33 PO; +HYDROCHLOROTHIAZIDE PO; +LEVO750 PO; +LEVSOD100 PO; +LEVSOD75 PO; +Lipitor80 MG PO; +Nitrostat0.3 MG SL; +Nystatin15 GM TOP; +OSTEO BI-FLEX PO; +Ondansetron Odt8 MG PO; +POTA10T PO; +PRAZ1 PO; +Vitamin K100 MCG PO; +WARF2 PO; +WARF3 PO
[2018-12-17 10:06] LABS: BASOPHILS ABSOLUTE AUTO 0.05 K/mm3 (0.00-0.23); BASOPHILS PERCENT AUTO 1 % (0-2); EOSINOPHILS ABSOLUTE AUTO 0.14 K/mm3 (0.00-0.68); EOSINOPHILS PERCENT AUTO 2 % (0-6); Hematocrit 32.2 % (33.0-51.0); Hemoglobin 10.5 g/dL (11.5-16.0); IMMATURE GRAN ABSOLUTE AUTO 0.04 K/mm3 (0.00-0.10); IMMATURE GRAN PERCENT AUTO 1 % (0-1); LYMPHOCYTES ABSOLUTE AUTO 0.76 K/mm3 (0.84-5.20); LYMPHOCYTES PERCENT AUTO 10 % (21-46); MONOCYTES PERCENT AUTO 7 % (4-13); Mean Corpuscular HGB 32.6 pg (26.0-34.0); Mean Corpuscular HGB Conc 32.6 g/dL (31.5-36.5); Mean Platelet Volume 9.9 fL (9.1-12.4); NEUTROPHILS ABSOLUTE AUTO 5.79 K/mm3 (1.96-9.15); NEUTROPHILS PERCENT AUTO 80 % (41-73); Platelet Count 192 K/mm3 (150-400); RDW Coefficient Variation 15.1 % (11.7-14.2); RDW Standard Deviation 54.6 fL (35.1-46.3); Red Blood Cell Count 3.22 M/mm3 (3.80-5.20); White Blood Cell Count 7.28 K/mm3 (4.00-11.30)
[2018-12-17 10:09] LABS: Mean Corpuscular Volume 100 fL (80-100)
[2018-12-17 10:19] LABS: Albumin, Blood 3.6 g/dL (3.4-5.0); Albumin/Globulin Ratio 1.2 (0.8-1.8); Bilirubin, Total 0.9 mg/dL (0.1-1.0); Bun/Creatinine Ratio 15.8 (12.0-20.0); Calcium, Blood 9.5 mg/dL (8.5-10.1); Creatinine, Blood 1.2 mg/dL (0.40-1.00); Potassium, Blood 4.6 mmol/L (3.5-5.5); Total Protein, Blood 6.6 g/dL (6.4-8.2)
== END 2018-12-17 11:49 | disposition home or self-care (01) ==
LOC: ER 09:27
PROVIDERS: Emergency Medicine
DX: S00.03XA Contusion of scalp, initial encounter (principal); S20.212A Contusion of left front wall of thorax, initial encounter; I48.91 Unspecified atrial fibrillation; W18.30XA Fall on same level, unspecified, initial encounter; Z79.899 Other long term (current) drug therapy; Z79.01 Long term (current) use of anticoagulants; J44.9 Chronic obstructive pulmonary disease, unspecified; I12.9 Hypertensive chronic kidney disease with stage 1 through stage 4 chronic kidney disease, or unspecified chronic kidney disease; I13.0 Hypertensive heart and chronic kidney disease with heart failure and stage 1 through stage 4 chronic kidney disease, or unspecified chronic kidney disease; I50.30 Unspecified diastolic (congestive) heart failure; N18.9 Chronic kidney disease, unspecified; E11.22 Type 2 diabetes mellitus with diabetic chronic kidney disease; F31.9 Bipolar disorder, unspecified; K21.9 Gastro-esophageal reflux disease without esophagitis; Z86.73 Personal history of transient ischemic attack (TIA), and cerebral infarction without residual deficits
CPT/HCPCS: 36415; 70450; 71046; 80053; 85025; 99284-25

== ENCOUNTER 2019-04-10 16:54 | Inpatient (IN) | payer MEDICARE, OTHER ==
[~2019-04-10] VITALS: Ht 177.8 cm; Wt 93.3 kg
[~2019-04-10 16:54] MED LIST changes: -ALBU90OI INH; -Amlodipine Besy10 MG PO; -BUDE10.22 INH; -BUPROPION XL150 MG PO; -ESCI10 PO; -FURO20 PO; -LEVSOD75 PO; -Nystatin15 GM TOP; -PRAZ1 PO; -Vitamin K100 MCG PO; -WARF2 PO; -WARF3 PO
[2019-04-10 17:21] LABS: BASOPHILS ABSOLUTE AUTO 0.04 K/mm3 (0.00-0.23); BASOPHILS PERCENT AUTO 1 % (0-2); EOSINOPHILS ABSOLUTE AUTO 0.13 K/mm3 (0.00-0.68); EOSINOPHILS PERCENT AUTO 2 % (0-6); Hematocrit 32.2 % (33.0-51.0); Hemoglobin 10.4 g/dL (11.5-16.0); IMMATURE GRAN ABSOLUTE AUTO 0.02 K/mm3 (0.00-0.10); IMMATURE GRAN PERCENT AUTO 0 % (0-1); LYMPHOCYTES PERCENT AUTO 15 % (21-46); MONOCYTES ABSOLUTE AUTO 0.57 K/mm3 (0.16-1.47); MONOCYTES PERCENT AUTO 11 % (4-13); Mean Corpuscular HGB Conc 32.3 g/dL (31.5-36.5); Mean Corpuscular Volume 105 fL (80-100); Mean Platelet Volume 10.8 fL (9.1-12.4); NEUTROPHILS ABSOLUTE AUTO 3.88 K/mm3 (1.96-9.15); NEUTROPHILS PERCENT AUTO 71 % (41-73); Platelet Count 148 K/mm3 (150-400); RDW Coefficient Variation 15.3 % (11.7-14.2); RDW Standard Deviation 57.4 fL (35.1-46.3); Red Blood Cell Count 3.06 M/mm3 (3.80-5.20); White Blood Cell Count 5.44 K/mm3 (4.00-11.30)
[2019-04-10 17:46] LABS: Alanine Aminotransfer (ALT/SGP 23 U/L (12-78); Albumin, Blood 3.7 g/dL (3.4-5.0); Albumin/Globulin Ratio 1.2 (0.8-1.8); Alk Phos 144 U/L (50-136); Anion Gap 7 mmol/L (6-16); Aspartate Aminotrans (AST/SGOT 26 U/L (12-37); Blood Urea Nitrogen 23 mg/dL (8-24); Bun/Creatinine Ratio 17.8 (12.0-20.0); CO2, Blood 26 mmol/L (21-32); Calcium, Blood 9.9 mg/dL (8.5-10.1); Chloride, Blood 104 mmol/L (98-108); Creatinine, Blood 1.29 mg/dL (0.40-1.00); Globulin, Blood 3.1 g/dL (2.2-4.0); Glomerular Filtration Rate 41 (60-); Glucose, Blood 124 mg/dL (70-99); Potassium, Blood 4.3 mmol/L (3.5-5.5); Sodium, Blood 137 mmol/L (136-145); Total Protein, Blood 6.8 g/dL (6.4-8.2); Troponin I <0.015 ng/mL (0.000-0.040)
[2019-04-10 17:50] LABS: Influenza A Negative (NEGATIVE); Influenza B Negative (NEGATIVE)
[2019-04-10] MEDS ORDERED: Ferrous Sulfat325 M2 PO (21:27)
[2019-04-10] MEDS ORDERED: Vitamin K100 MCG PO (21:28)
[2019-04-10] MEDS ORDERED: PRAZ1 PO (21:28)
[2019-04-10] MEDS ORDERED: ALBU90OI INH (21:28)
[2019-04-10] MEDS ORDERED: WARF3 PO (21:28)
[2019-04-10] MEDS ORDERED: Amlodipine Besy10 MG PO (21:28)
[2019-04-10] MEDS ORDERED: WARF2 PO (21:28)
[2019-04-10] MEDS ORDERED: BUDE10.22 INH (21:29)
[2019-04-10] MEDS ORDERED: BUPROPION XL150 MG PO (21:29)
[2019-04-10] MEDS ORDERED: ESCI10 PO (21:29)
[2019-04-10] MEDS ORDERED: Fruity C250 MG PO (21:30)
[2019-04-10] MEDS ORDERED: Nystatin15 GM TOP (21:30)
[2019-04-10] MEDS ORDERED: Lipitor80 MG PO (21:31)
[2019-04-10] MEDS ORDERED: LEVSOD100 PO (21:31)
[2019-04-10] MEDS ORDERED: METO50 PO (21:32)
[2019-04-10] MEDS ORDERED: HYDCHL25 PO (21:33)
--- NOTE | 2019-04-10 22:28 | NUR ---
transfer report from Simi NORTON on PT with acute on chronic resp failure. Neg for Influenza A & B. She has DNR status and requires 3 l oxygen to keep sats at 90%. Baseline o2 2 l . Will be on Tele monitor. Await admission
[2019-04-11 01:33] LABS: Adenovirus Not Detected (NOT DETECT); Bordetella pertussis Not Detected (NOT DETECT); Chlamydophila pneumoniae Not Detected (NOT DETECT); Coronavirus 229E Not Detected (NOT DETECT); Coronavirus HKU1 Not Detected (NOT DETECT); Coronavirus NL63 Not Detected (NOT DETECT); Coronavirus OC43 Not Detected (NOT DETECT); Human Metapneumovirus Not Detected (NOT DETECT); Human Rhinovirus/Enterovirus Not Detected (NOT DETECT); Influenza A Not Detected (NOT DETECT); Influenza A/2009-H1 Not Detected (NOT DETECT); Influenza A/H1 Not Detected (NOT DETECT); Influenza A/H3 Not Detected (NOT DETECT); Influenza B Not Detected (NOT DETECT); Mycoplasma pneumoniae Not Detected (NOT DETECT); Parainfluenza Virus 1 Not Detected (NOT DETECT); Parainfluenza Virus 2 Not Detected (NOT DETECT); Parainfluenza Virus 3 Not Detected (NOT DETECT); Parainfluenza Virus 4 Not Detected (NOT DETECT); Respiratory Syncytial Virus Not Detected (NOT DETECT)
--- NOTE | 2019-04-11 02:29 | NUR ---
88 year old PT admitted with acute on chronic heart failure dyspnea and hypoxia. Baseline on 2 l oxygen for copd, nonsmoker but heavy second hand smoke exposure. 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 has 2 Daughters one is estranged, other lives in [place]. 1 eleven year old Granddaughter. PT has chronic neuropathic pain and back pain , hx of back surgery. Hx of falls hx of multiple fx. recent fall 2 weeks ago with head hit. PT says she is unable to ambulate baseline stands with FWW. 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 Had Flu vaccine at [facility] this season. Current med list reviewed with Lenard NORTON. PT declined CPAP has bioxx and desats with activity. IV lasix 60 mg given for CXR positive for bilat pleural effusions and fluid overload. HX of RT sided heart failure. High fall risk set off bed alarm attempting to get to bedside commode. PT very weak and unsteady. Arrived via EMS, PT says she lost her Teller sweater, called ER not found in ER. PT has wheezes and crackles. o2 3 to 4 l nc, neb txs.
[2019-04-11 05:08] LABS: BASOPHILS PERCENT AUTO 0 % (0-2); EOSINOPHILS PERCENT AUTO 0 % (0-6); Hematocrit 30.6 % (33.0-51.0); Hemoglobin 9.9 g/dL (11.5-16.0); IMMATURE GRAN ABSOLUTE AUTO 0.02 K/mm3 (0.00-0.10); IMMATURE GRAN PERCENT AUTO 1 % (0-1); LYMPHOCYTES ABSOLUTE AUTO 0.12 K/mm3 (0.84-5.20); LYMPHOCYTES PERCENT AUTO 5 % (21-46); MONOCYTES ABSOLUTE AUTO 0.03 K/mm3 (0.16-1.47); MONOCYTES PERCENT AUTO 1 % (4-13); Mean Corpuscular HGB 33.3 pg (26.0-34.0); Mean Corpuscular HGB Conc 32.4 g/dL (31.5-36.5); Mean Corpuscular Volume 103 fL (80-100); Mean Platelet Volume 10.8 fL (9.1-12.4); NEUTROPHILS PERCENT AUTO 94 % (41-73); Platelet Count 130 K/mm3 (150-400); RDW Coefficient Variation 15.2 % (11.7-14.2); RDW Standard Deviation 55.6 fL (35.1-46.3); Red Blood Cell Count 2.97 M/mm3 (3.80-5.20); White Blood Cell Count 2.67 K/mm3 (4.00-11.30)
--- NOTE | 2019-04-11 09:12 | NUR ---
ECHOCARDIOGRAM COMPLETED
[2019-04-11 10:10] LABS: International Normalized Ratio 2.67; Prothrombin Time Results 25.9 Sec (9.7-11.5)
--- NOTE | 2019-04-11 16:24 | NUR ---
SUMMARY PT IS A/O X4, PLEASANT/COOPERATIVE. UP TO BSC 1 ASSIST. THIS AM SHE STATE SHORTNESS OF BREATH WORSENING, BREATHING SOMEWHAT LABORED, EXP WHEEZES T/O. O2 @ 3L, BIOX 94%, RT IN FOR NEB TX. SCHEDULED SOLUMEDROL & LASIX GIVEN. SHE STATE IMPROVEMENT. STATE FATIGUE, SHE HAS BEEN ABLE TO GET SOME SLEEP TODAY. LUNGS THIS AFTERNOON SOMEWHAT IMPROVED HOWEVER EXP WHEEZE CONTINUES. FIRE SUPPRESSION CAPTAIN REVIEW CHART, ALL RESP TESTS NEGATIVE, DROPLET ISOLATION D/C'D. VSS.
--- NOTE | 2019-04-11 20:15 | NUR ---
PT REQUESTED SOMETHING TO HELP HER SLEEP AND SAID DAY MD WAS GOING TO RX SOMETHING THIS EVENING. NO ORDER OBSERVED. PT SAYS THAT "BENEDRYL AND MELATONIN DON'T WORK, AMBIEN ONLY HELPS FOR 3 HOURS AND ATIVAN HAD WEIRD SIDE EFFECTS". PT WANTED TO TRY XANAX. MADE AWARE AND OPTED FOR TRAZADONE PRN X1. WILL MEDICATED WHEN AVAILABLE FROM PHARMACY.
--- NOTE | 2019-04-11 23:55 | NUR ---
PT REFUSED PREVIOUSLY RX'D TRAZADONE FOR SLEEP D/T "IT NOT WORKING IN THE PAST". AMBIEN RX'D BY INSTEAD AND MED RECIEVED AT 313 FOR GOOD EFFECT.
--- NOTE | 2019-04-12 04:36 | NUR ---
SUMMARY: A/OX4, CALLS APPROPRIATELY AND SPECIFIES NEEDS. SHE'S A 1P ASSIST TO BSC AND STAFF ASSISTED W/REPOSITIONING PRN IN BED. BLE REMAIN EDEMATOUS AND ELEVATED ON PILLOWS. PT ON 3L O2 VIA NC AND TOLERATED CPAP AT HS W/O2 BLEED IN AND CONT BIOX INTACT. WHEEZES PERSIST TO UPPER AIRWAYS W/BX TX'S RECIEVED PER RT AND SOLUMEDROL PROVIDED PER EMAR. PT REPORTS BX IMPROVEMENT. SPUTUM SPEC STILL PENDIND D/T CUFF SETTER LOCKSTITCH COUGH. SHE REQUESTED SLEEPING MED AT START OF SHIFT W/TRAZADONE X1 INITIALLY RX'D AND OFFERED BUT PT REFUSED D/T HX OF IT BEING INEFFECTIVE. AMBIEN X1 WAS THEN RX'D AND RECIEVED FOR GOOD EFFECT. SEE PREVIOUS NOTE FOR THOSE DETAILS. SHE REMAINS NSR ON TELEMETRY, RATE 70'S-90'S BPM. VSS/AFEBRILE, NO ACUTE CHANGES. WCTM AND REPORT TO DAY RN.
[2019-04-12 05:36] LABS: Bun/Creatinine Ratio 22.8 (12.0-20.0); Calcium, Blood 9.3 mg/dL (8.5-10.1); Creatinine, Blood 1.23 mg/dL (0.40-1.00); Potassium, Blood 4.2 mmol/L (3.5-5.5)
[2019-04-12 09:39] LABS: International Normalized Ratio 2.14; Prothrombin Time Results 21.2 Sec (9.7-11.5)
--- NOTE | 2019-04-12 17:45 | NUR ---
SUMMARY PT STATE BREATHING CONTINUES TO IMPROVE, SHE HAS BEEN GETTING UP THIS AFTERNOON & AMBULATING INTO BR W O2 @ 3L, SOB W EXERTION CONTINUES HOWEVER SIGNIFICANTLY IMPROVED FROM ADMIT. IV SOLUMEDROL & LASIX CONTINUES FOR NOW. CONT BIOX IN PLACE. RT MANAGING BREATHING TX'S. PT IS A/O X4, PLEASANT AFFECT. SHE STATE HOPEFUL FOR D/C HOME TOMORROW. VSS.
--- NOTE | 2019-04-13 07:25 | NUR ---
SHIFT SUMMARY ADMIT FOR CHF EXACERBATION. DNR CODE. PLAN IS FOR DC HOME TODAY WITH SPOUSE. PT HAD AN UNEVENTFUL NIGHT. NO ADVERSE S/SX REPORTED. SOME EDEMA IN BOTH ELBOWS AND BLE NOTED. SHE IS ON HER BASELINE USING 3 LPM O2.
[2019-04-13 09:49] LABS: International Normalized Ratio 3.46; Prothrombin Time Results 32.8 Sec (9.7-11.5)
[2019-04-13 11:11] LABS: Bun/Creatinine Ratio 26.2 (12.0-20.0); Calcium, Blood 8.8 mg/dL (8.5-10.1); Creatinine, Blood 1.26 mg/dL (0.40-1.00)
[2019-04-13] MEDS ORDERED: FURO40 PO (13:54)
--- NOTE | 2019-04-13 17:15 | NUR ---
SHIFT SUMMARY PT PLANNING ON D/C HOME, AWAITING [facility] FOR IN HOME OXYGEN, [facility] WILL BE TRANSPORTED HOME BY [facility]. DISCHARE INSTRUCTION GONE OVER WITH PT, PT HAS NO QUESTION. CALL LIGHT WITHIN REACH. PLAN ON REPORTING TO ONCOMING SHIFT.
== END 2019-04-13 20:20 | disposition home or self-care (01) | DRG 291 ==
LOC: ER 16:54 → MEDS 22:33
PROVIDERS: Emergency Medicine; Internal Medicine; ADMIT Internal Medicine
DX: I13.0 Hypertensive heart and chronic kidney disease with heart failure and stage 1 through stage 4 chronic kidney disease, or unspecified chronic kidney disease (principal); I50.31 Acute diastolic (congestive) heart failure; J96.21 Acute and chronic respiratory failure with hypoxia; J44.1 Chronic obstructive pulmonary disease with (acute) exacerbation; N18.3 Chronic kidney disease, stage 3 (moderate); I27.20 Pulmonary hypertension, unspecified; E11.22 Type 2 diabetes mellitus with diabetic chronic kidney disease; F31.9 Bipolar disorder, unspecified; K21.9 Gastro-esophageal reflux disease without esophagitis; M81.0 Age-related osteoporosis without current pathological fracture; Z66 Do not resuscitate; Z86.718 Personal history of other venous thrombosis and embolism; Z86.73 Personal history of transient ischemic attack (TIA), and cerebral infarction without residual deficits; Z88.8 Allergy status to other drugs, medicaments and biological substances; Z79.01 Long term (current) use of anticoagulants; Z79.899 Other long term (current) drug therapy
CPT/HCPCS: 0099U; 36415; 71046; 80048; 80053; 83880; 84484; 85025; 85610; 87804; 93005; 93010; 93306; 94640; 94644; 94660; 94761; 94762; 96374; 99285-25; J1650; J1940; J2930

== ENCOUNTER 2019-09-04 14:57 | Emergency (ER) | payer MEDICARE, OTHER ==
[~2019-09-04] VITALS: Ht 175.3 cm; Wt 81.2 kg
[~2019-09-04 14:57] MED LIST changes: +ALBU90OI INH; +Amlodipine Besy10 MG PO; +BUDE10.22 INH; +BUPROPION XL150 MG PO; +ESCI10 PO; +Fruity C250 MG PO; +HYDCHL25 PO; +Nystatin15 GM TOP; +PRAZ1 PO; +Vitamin K100 MCG PO; +WARF2 PO; +WARF3 PO
[2019-09-04 15:57] LABS: BASOPHILS ABSOLUTE AUTO 0.03 K/mm3 (0.00-0.23); BASOPHILS PERCENT AUTO 1 % (0-2); EOSINOPHILS ABSOLUTE AUTO 0.14 K/mm3 (0.00-0.68); EOSINOPHILS PERCENT AUTO 3 % (0-6); Hematocrit 26.9 % (33.0-51.0); Hemoglobin 8.5 g/dL (11.5-16.0); IMMATURE GRAN ABSOLUTE AUTO 0.02 K/mm3 (0.00-0.10); IMMATURE GRAN PERCENT AUTO 0 % (0-1); LYMPHOCYTES ABSOLUTE AUTO 0.66 K/mm3 (0.84-5.20); LYMPHOCYTES PERCENT AUTO 12 % (21-46); MONOCYTES ABSOLUTE AUTO 0.49 K/mm3 (0.16-1.47); MONOCYTES PERCENT AUTO 9 % (4-13); Mean Corpuscular HGB 33.6 pg (26.0-34.0); Mean Corpuscular HGB Conc 31.6 g/dL (31.5-36.5); Mean Corpuscular Volume 106 fL (80-100); NEUTROPHILS ABSOLUTE AUTO 3.99 K/mm3 (1.96-9.15); NEUTROPHILS PERCENT AUTO 75 % (41-73); NRBC ABSOLUTE 0.04 K/mm3 (0.00-0.02); NRBC Auto 0.8 /100 WBC (0.0-0.2); Platelet Count 150 K/mm3 (150-400); RDW Coefficient Variation 13.8 % (11.7-14.2); RDW Standard Deviation 51.8 fL (35.1-46.3); Red Blood Cell Count 2.53 M/mm3 (3.80-5.20); White Blood Cell Count 5.33 K/mm3 (4.00-11.30)
[2019-09-04 16:20] LABS: Albumin, Blood 3.3 g/dL (3.4-5.0); Albumin/Globulin Ratio 1.1 (0.8-1.8); Bilirubin, Total 0.6 mg/dL (0.1-1.0); Bun/Creatinine Ratio 33.6 (12.0-20.0); Calcium, Blood 8.7 mg/dL (8.5-10.1); Creatinine, Blood 1.34 mg/dL (0.40-1.00); Globulin, Blood 2.9 g/dL (2.2-4.0); Potassium, Blood 4.7 mmol/L (3.5-5.5); Total Protein, Blood 6.2 g/dL (6.4-8.2)
[2019-09-04 18:35] LABS: Prothrombin Time Results 45.8 Sec (9.7-11.5)
[2019-09-04 18:37] LABS: International Normalized Ratio 4.67
== END 2019-09-04 20:55 | disposition home or self-care (01) ==
LOC: ER 14:57
PROVIDERS: Emergency Medicine
DX: R04.0 Epistaxis (principal); I13.0 Hypertensive heart and chronic kidney disease with heart failure and stage 1 through stage 4 chronic kidney disease, or unspecified chronic kidney disease; E11.22 Type 2 diabetes mellitus with diabetic chronic kidney disease; N18.9 Chronic kidney disease, unspecified; I50.30 Unspecified diastolic (congestive) heart failure; J44.9 Chronic obstructive pulmonary disease, unspecified; F31.9 Bipolar disorder, unspecified; K21.9 Gastro-esophageal reflux disease without esophagitis; Z79.01 Long term (current) use of anticoagulants; Z79.899 Other long term (current) drug therapy; Z88.8 Allergy status to other drugs, medicaments and biological substances; Z86.718 Personal history of other venous thrombosis and embolism
CPT/HCPCS: 30903; 36415; 80053; 85025; 85610; 99284-25

== ENCOUNTER 2020-04-07 13:01 | Inpatient (IN) | payer OTHER, MEDICARE ==
[~2020-04-07] VITALS: Ht 177.8 cm; Wt 87.6 kg
[~2020-04-07 13:01] MED LIST changes: -Fruity C250 MG PO; +WARF3; -WARF3 PO
[2020-04-07 13:40] LABS: BASOPHILS ABSOLUTE AUTO 0.04 K/mm3 (0.00-0.23); BASOPHILS PERCENT AUTO 1 % (0-2); EOSINOPHILS ABSOLUTE AUTO 0.03 K/mm3 (0.00-0.68); EOSINOPHILS PERCENT AUTO 0 % (0-6); Hematocrit 27.6 % (33.0-51.0); Hemoglobin 9.3 g/dL (11.5-16.0); IMMATURE GRAN ABSOLUTE AUTO 0.02 K/mm3 (0.00-0.10); IMMATURE GRAN PERCENT AUTO 0 % (0-1); LYMPHOCYTES PERCENT AUTO 7 % (21-46); MONOCYTES ABSOLUTE AUTO 0.66 K/mm3 (0.16-1.47); MONOCYTES PERCENT AUTO 9 % (4-13); Mean Corpuscular HGB 34.2 pg (26.0-34.0); Mean Corpuscular HGB Conc 33.7 g/dL (31.5-36.5); Mean Corpuscular Volume 102 fL (80-100); Mean Platelet Volume 10.4 fL (9.1-12.4); NEUTROPHILS ABSOLUTE AUTO 5.83 K/mm3 (1.96-9.15); NEUTROPHILS PERCENT AUTO 82 % (41-73); Platelet Count 150 K/mm3 (150-400); RDW Coefficient Variation 13.9 % (11.7-14.2); RDW Standard Deviation 50.8 fL (35.1-46.3); Red Blood Cell Count 2.72 M/mm3 (3.80-5.20); White Blood Cell Count 7.08 K/mm3 (4.00-11.30)
[2020-04-07 14:09] LABS: Albumin, Blood 3.4 g/dL (3.4-5.0); Albumin/Globulin Ratio 1.3 (0.8-1.8); Bilirubin, Total 1.2 mg/dL (0.1-1.0); Bun/Creatinine Ratio 19.5 (12.0-20.0); Calcium, Blood 9.3 mg/dL (8.5-10.1); Creatinine, Blood 1.49 mg/dL (0.40-1.00); Globulin, Blood 2.7 g/dL (2.2-4.0); Potassium, Blood 3.5 mmol/L (3.5-5.5); Total Protein, Blood 6.1 g/dL (6.4-8.2); Troponin I 0.074 ng/mL (0.000-0.040)
[2020-04-07 14:13] LABS: Influenza A, PCR Negative (NEGATIVE); Influenza B, PCR Negative (NEGATIVE); Resp Syncytial Virus, PCR Negative (NEGATIVE); SARS-Cov-2 (COVID-19) PCR, MMC Negative (NEGATIVE)
[2020-04-07 15:52] LABS: International Normalized Ratio 1.13
[2020-04-07 16:04] LABS: Base Excess Venous 6.4 mmol/L; Bicarbonate Venous 29.6 mmol/L (24.0-30.0); PCO2 Venous 37.1 mmHg (38-42); PO2 Venous 47.8 mmHg (38-42); pH Blood Venous 7.51 (7.34-7.37)
--- NOTE | 2020-04-07 17:19 | NUR ---
ADMISSION: REPORT RECEIVED FROM ED RN. PT TO UNIT AT ABOUT 1630. UPON ASSESSMENT PT IS IN NO VISABLE DISTRESS, A/O. HTN NOTED WITH MUCH MOVEMENT, OTHERWISE VSS. PT BREATHING WITHOUT STRUGGLE WITH CPAP. TELE VERIFIED. ATTENDS PLACED. TECH IN ROON TO COMPLETE DOPPLER STUDY OF LEGS. TO TAKE PICTURES OF SKIN TEAR AT R NEWSOME. PT INSTUCTED TO USE CALL LIGHT. BED ALARM ON FOR SAFETY. WILL CTM.
[2020-04-08 02:05] LABS: BASOPHILS PERCENT AUTO 0 % (0-2); EOSINOPHILS PERCENT AUTO 0 % (0-6); Hematocrit 26.9 % (33.0-51.0); Hemoglobin 8.8 g/dL (11.5-16.0); IMMATURE GRAN ABSOLUTE AUTO 0.03 K/mm3 (0.00-0.10); IMMATURE GRAN PERCENT AUTO 1 % (0-1); LYMPHOCYTES ABSOLUTE AUTO 0.18 K/mm3 (0.84-5.20); LYMPHOCYTES PERCENT AUTO 4 % (21-46); MONOCYTES ABSOLUTE AUTO 0.07 K/mm3 (0.16-1.47); MONOCYTES PERCENT AUTO 2 % (4-13); Mean Corpuscular HGB 33.6 pg (26.0-34.0); Mean Corpuscular HGB Conc 32.7 g/dL (31.5-36.5); Mean Corpuscular Volume 103 fL (80-100); Mean Platelet Volume 10.6 fL (9.1-12.4); NEUTROPHILS ABSOLUTE AUTO 4.22 K/mm3 (1.96-9.15); NEUTROPHILS PERCENT AUTO 94 % (41-73); Platelet Count 128 K/mm3 (150-400); RDW Standard Deviation 52.3 fL (35.1-46.3); Red Blood Cell Count 2.62 M/mm3 (3.80-5.20)
[2020-04-08 02:17] LABS: Bun/Creatinine Ratio 21.3 (12.0-20.0); Calcium, Blood 8.7 mg/dL (8.5-10.1); Creatinine, Blood 1.55 mg/dL (0.40-1.00); Potassium, Blood 3.8 mmol/L (3.5-5.5)
--- NOTE | 2020-04-08 05:20 | NUR ---
SHIFT SUMMARY PT A&O X4. VSS. MONITOR SHOWS SR, HR 80's-100. SPO2 > 92% ON 2L NC T/O SHIFT, WHICH IS PT's REPORTED HOME O2 USE. CPAP NO LONGER BEING USED. PT REPORTING INSOMNIA, STATING "I'VE TRIED EVERY OVER THE COUNTER MEDICATION I COULD GET BUT NOTHING WORKS. I DRINK A FEW SIPS OF BRENDON BEFORE BED AND THAT WILL GET ME 30 MINUTES OF SLEEP, & THEN I'M AWAKE AGAIN." PT W/ REPORT OF NO ALCOHOL CONSUMPTION TODAY. CALL TO [facility] ALCIRA W/ 1 TIME ORDER FOR GABRIELA MONTEZ, SEE EMAR. MEDICATION GIVEN W/ PT THEN SLEEPING CONSISTENTLY T/O SHIFT, ONLY WOKEN FOR ROUTINE VS ASSESSMENTS/MEDS W/ PT THEN ABLE TO GO BACK TO SLEEP. NO EVENTS OVER NIGHT. WILL CONTINUE TO MONITOR & PROVIDE CARE UNTIL REPORT OFF TO DAY SHIFT RN.
--- NOTE | 2020-04-08 09:48 | NUR ---
ASSUMED CARE OF PT AFTER RECEIVING REPORT FROM ERROL GONZALES. PER REPORT, PT RECEIVED SLEEPING AID LAST NOC. PT CONTINUES TO BE SLEEPY AT THIS TIME, AROUSES TO SHOULDER BEING SHAKEN, PT OPENS EYES AND WAS ABLE TO MAINTAIN EYE CONTACT PER REQUEST BUT FALLS QUICKLY BACK TO SLEEP. AM MEDICATIONS NOT GIVEN AT THIS TIME, WILL HOLD THEM AND ATTEMPT TO MEDICATE PT AFTER SHE GETS MORE REST.
--- NOTE | 2020-04-08 12:54 | NUR ---
PT MORE ALERT AT THIS TIME, AWAKENS TO STAFF ENTERING ROOM AND ABLE TO CARRY CONVERSATION IN FULL SENTENCES. PT ABLE TO TAKE PO MEDICATION W/OUT DIFFICULTY, DRINKS FLUIDS AND EATS SMALL AMOUNT OF MEAL TRAY. PT CONTINUES TO REST WITH EYES CLOSED, NADN, CALL LIGHT WITHIN REACH.
--- NOTE | 2020-04-08 19:16 | NUR ---
SHIFT SUMMARY: PT AROUSES MORE T/OUT THE DAY, IS A&OX4, RESPIRATIONS EVEN AND UNLABORED, CONTINUES AT BASELINE OXYGEN NEEDS AT THIS TIME. PT DID RECEIVE A BREATHING TREATMENT FOR ONSET OF WHEEZING THAT RESOLVED WITH THE BREATHING TREATMENT. PT RECEIVED TYLENOL FOR C/O L HIP PAIN THAT PT STATES IS DUE TO ARTHRITIS. PT RESTING QUIETLY IN BED, BENJIE. BEDSIDE REPORT GIVEN TO ERROL GALARZA.
[2020-04-09 03:45] LABS: BASOPHILS PERCENT AUTO 0 % (0-2); EOSINOPHILS PERCENT AUTO 0 % (0-6); Hematocrit 25.9 % (33.0-51.0); Hemoglobin 8.3 g/dL (11.5-16.0); IMMATURE GRAN ABSOLUTE AUTO 0.03 K/mm3 (0.00-0.10); IMMATURE GRAN PERCENT AUTO 0 % (0-1); LYMPHOCYTES ABSOLUTE AUTO 0.49 K/mm3 (0.84-5.20); LYMPHOCYTES PERCENT AUTO 6 % (21-46); MONOCYTES ABSOLUTE AUTO 0.73 K/mm3 (0.16-1.47); MONOCYTES PERCENT AUTO 9 % (4-13); Mean Corpuscular HGB 33.5 pg (26.0-34.0); Mean Corpuscular Volume 104 fL (80-100); Mean Platelet Volume 10.6 fL (9.1-12.4); NEUTROPHILS ABSOLUTE AUTO 7.37 K/mm3 (1.96-9.15); NEUTROPHILS PERCENT AUTO 86 % (41-73); Platelet Count 134 K/mm3 (150-400); RDW Coefficient Variation 14.1 % (11.7-14.2); RDW Standard Deviation 53.6 fL (35.1-46.3); Red Blood Cell Count 2.48 M/mm3 (3.80-5.20); White Blood Cell Count 8.62 K/mm3 (4.00-11.30)
[2020-04-09 03:59] LABS: Albumin, Blood 3.2 g/dL (3.4-5.0); Anion Gap 6 mmol/L (6-16); Blood Urea Nitrogen 35 mg/dL (8-24); Bun/Creatinine Ratio 23.3 (12.0-20.0); CO2, Blood 33 mmol/L (21-32); Calcium, Blood 8.4 mg/dL (8.5-10.1); Chloride, Blood 94 mmol/L (98-108); Glomerular Filtration Rate 35 (60-); Glucose, Blood 140 mg/dL (70-99); Phosphorus, Blood 2.8 mg/dL (2.5-4.9); Potassium, Blood 3.7 mmol/L (3.5-5.5); Sodium, Blood 133 mmol/L (136-145)
--- NOTE | 2020-04-09 05:23 | NUR ---
SHIFT SUMMARY PT RESTED THROUGH MOST OF NIGHT. ABLE TO MAKE NEEDS KNOWN - ALERT AND ORIENTED. PT REQUESTED AMBIEN FOR SLEEP AID TONIGHT, PT WAS ABLE TO GET SOME SLEEP AFTER ADMINISTRATION. NSR ON TELE - NO C/O CHEST PAIN. SATS >92% ON HER USUAL 2LNC, HOWEVER, HER LUNG SOUNDS ARE DIMINISHED, SOME CRACKLES IN BACK/BASES OF LUNGS, AND JUST SOUNDS TIGHT. CALLED RESPIRATORY FOR BREATHING TX, BUT NO IMPROVEMENT. RESPIRATORY SUGGESTED PLACING BACK ON CPAP. WILL RELAY TO . SBA TO BSC, VOIDED X2, NO BM. NO EVIDENCE OF ANY BLOOD PER RECTUM. RN DOES C/O SOME PAIN IN HER HIP - NOT RELIEVED BY TYLENOL, WILL CALL FOR ADDITIONAL PRN. CALL LIGHT WTIHIN REACH, BED IN LOWEST POSITION. WILL CONTINUE TO MONITOR.
--- NOTE | 2020-04-09 11:00 | NUR ---
TRANSFER OF CARE, REPORT RECEIVED FROM JOSH NORTON
--- NOTE | 2020-04-09 11:21 | NUR ---
CARE HANDOFF REPORT GIVEN TO ERROL MOORE.
--- NOTE | 2020-04-09 18:15 | NUR ---
PT SUMMARY: NO ACUTE CHANGE SINCE TRANSFER OF CARE, VITALS HRR SINUS AT 70'S, BP SYSTOLIC 140'S, SATS ABOVE 95% ON 2L OF O2, AFEBRILE. DENIES CHEST PAIN/PRESSURE. PT WAS GIVEN TYLENOL X1 FOR LEFT LEG PAIN AND WAS EFFECTIVE. PT HAS BEEN GETTING UP TO USE BED SIDE COMMODE FOR TOILETING VIA WALKER SBA, WAS UP IN THE CHAIR THIS AM FOR MEALS. PT HAS BEEN RESTING MOST OF THE SHIFT, ABLE TO MAKE NEEDS KNOWN, CALL LIGHTS IN REACH WILL REPORT TO ONCOMING SHIFT
[2020-04-10 03:35] LABS: BASOPHILS ABSOLUTE AUTO 0.01 K/mm3 (0.00-0.23); BASOPHILS PERCENT AUTO 0 % (0-2); EOSINOPHILS ABSOLUTE AUTO 0.06 K/mm3 (0.00-0.68); EOSINOPHILS PERCENT AUTO 1 % (0-6); Hematocrit 25.3 % (33.0-51.0); IMMATURE GRAN ABSOLUTE AUTO 0.02 K/mm3 (0.00-0.10); IMMATURE GRAN PERCENT AUTO 0 % (0-1); LYMPHOCYTES ABSOLUTE AUTO 0.56 K/mm3 (0.84-5.20); LYMPHOCYTES PERCENT AUTO 8 % (21-46); MONOCYTES ABSOLUTE AUTO 0.55 K/mm3 (0.16-1.47); MONOCYTES PERCENT AUTO 8 % (4-13); Mean Corpuscular HGB 33.5 pg (26.0-34.0); Mean Corpuscular HGB Conc 31.6 g/dL (31.5-36.5); Mean Corpuscular Volume 106 fL (80-100); Mean Platelet Volume 10.7 fL (9.1-12.4); NEUTROPHILS ABSOLUTE AUTO 5.53 K/mm3 (1.96-9.15); NEUTROPHILS PERCENT AUTO 82 % (41-73); Platelet Count 121 K/mm3 (150-400); RDW Coefficient Variation 14.2 % (11.7-14.2); RDW Standard Deviation 55.4 fL (35.1-46.3); Red Blood Cell Count 2.39 M/mm3 (3.80-5.20); White Blood Cell Count 6.73 K/mm3 (4.00-11.30)
[2020-04-10 03:52] LABS: Anion Gap 5 mmol/L (6-16); Blood Urea Nitrogen 32 mg/dL (8-24); Bun/Creatinine Ratio 22.9 (12.0-20.0); CO2, Blood 35 mmol/L (21-32); Calcium, Blood 8.4 mg/dL (8.5-10.1); Chloride, Blood 95 mmol/L (98-108); Glomerular Filtration Rate 38 (60-); Glucose, Blood 99 mg/dL (70-99); Phosphorus, Blood 2.6 mg/dL (2.5-4.9); Potassium, Blood 3.3 mmol/L (3.5-5.5); Sodium, Blood 135 mmol/L (136-145)
--- NOTE | 2020-04-10 05:16 | NUR ---
SHIFT SUMMARY PT RESTED COMFORTABLY THROUGH NIGHT. ALERT AND ORIENTED - ABLE TO MAKE NEEDS KNOWN. MAINTAINS SATS >92% ON 2LNC, BUT PT DOES TEND TO REMOVE CANNULA WHEN SLEEPING, IN WHICH CASE DESATS DOWN TO 86% AND ALARM GOES OFF. TELE NSR. NO C/O CP. PT WAS INCONTINENT THROUGHOUT NIGHT IN ATTTENDS. NO C/O OF ANY PAIN AT ALL TONIGHT. VSS. CALL LIGHT WITHIN REACH, BED IN LOWEST POSITION. WILL CONTINUE TO MONITOR.
[2020-04-10 11:52] LABS: Hematocrit 28.4 % (33.0-51.0)
[2020-04-10] MEDS ORDERED: MELATONIN5 M1 PO (13:39)
--- NOTE | 2020-04-10 14:43 | NUR ---
PT DISCHARGED TO HOME WITH HOME HEALTH ORDERS. PT WAS SEEN BY PHYSICAL THERAPIST BEFORE PT WAS DISCHARGED RECOMMENDED PT/OT HOME HEALTH. PT STATED SHE HAS HER OWN WHEELCHAIR AT HOME AND PORTABLE O2 MACHINE. PT WAS ABLE TO AMBULATE WITH WALKER. DENIES ANY CHEST PAIN ALL THROUGHOUT THE SHIFT HAD TYLENOL X1 FOR LEFT LEG PAIN AND WAS EFFECTIVE, PT ASKED ABOUT HER SLEEPING AID TO GO HOME WITH AND STATED MELATONIN DOES NOT WORK FOR HER, PT WAS INSTRUCTED TO DISCUSS WITH PCP TO CONTINUE TAKING AMBIEN INSTEAD PT AGREED. PT AWARE TO CALL TOMORROW AND [facility]IOLOG[facility]. ALL DISCHARGE INFORMATION AND NEW MEDICATION DISCLOSED WITH PT. ALL BELONGINGS SENT WITH PT, ACCOMPANIED BY PCT VIA WHEELCHAIR FOR TRANSPORT, PT'S NIECE PROVIDED PT'S TRANSPORTATION.
== END 2020-04-10 14:45 | disposition home health service (06) | DRG 291 ==
LOC: ER 13:01 → PCU 15:28
PROVIDERS: Emergency Medicine; ADMIT Family Medicine
PROC: 5A09357 Assistance with Respiratory Ventilation, Less than 24 Consecutive Hours, Continuous Positive Airway Pressure (ICD-10-PCS; principal; 2020-04-07)
DX: I13.0 Hypertensive heart and chronic kidney disease with heart failure and stage 1 through stage 4 chronic kidney disease, or unspecified chronic kidney disease (principal); I50.33 Acute on chronic diastolic (congestive) heart failure; J96.01 Acute respiratory failure with hypoxia; J44.1 Chronic obstructive pulmonary disease with (acute) exacerbation; E87.1 Hypo-osmolality and hyponatremia; I16.1 Hypertensive emergency; I24.8 Other forms of acute ischemic heart disease; Z79.01 Long term (current) use of anticoagulants; Z99.81 Dependence on supplemental oxygen; F31.9 Bipolar disorder, unspecified; E11.22 Type 2 diabetes mellitus with diabetic chronic kidney disease; M81.0 Age-related osteoporosis without current pathological fracture; Z20.828 Contact with and (suspected) exposure to other viral communicable diseases; N18.30 Chronic kidney disease, stage 3 unspecified; E78.5 Hyperlipidemia, unspecified; D69.6 Thrombocytopenia, unspecified; Z66 Do not resuscitate; K64.9 Unspecified hemorrhoids; K21.9 Gastro-esophageal reflux disease without esophagitis; S70.11XA Contusion of right thigh, initial encounter; Y92.9 Unspecified place or not applicable; I27.20 Pulmonary hypertension, unspecified; I05.0 Rheumatic mitral stenosis; I35.0 Nonrheumatic aortic (valve) stenosis; Z86.718 Personal history of other venous thrombosis and embolism; I07.1 Rheumatic tricuspid insufficiency
CPT/HCPCS: 0241U; 36415; 71045; 80048; 80053; 80069; 82803; 82947; 83880; 84484; 85014; 85018; 85025; 85610; 93005; 93010; 93306; 93970; 94640; 94660; 94664; 94760; 94762; 96374; 96375; 96376; 97116; 97162; 97530; 99285-25; A9270; A9270-GY; J0360; J1100; J1940

== ENCOUNTER 2020-04-12 12:16 | Emergency (ER) | payer OTHER, MEDICARE ==
[~2020-04-12] VITALS: Ht 177.8 cm; Wt 81.7 kg
[~2020-04-12 12:16] MED LIST changes: +MELATONIN5 M1 PO
[2020-04-12 12:45] LABS: BASOPHILS ABSOLUTE AUTO 0.02 K/mm3 (0.00-0.23); BASOPHILS PERCENT AUTO 0 % (0-2); EOSINOPHILS ABSOLUTE AUTO 0.16 K/mm3 (0.00-0.68); EOSINOPHILS PERCENT AUTO 3 % (0-6); Hematocrit 28.6 % (33.0-51.0); Hemoglobin 9.4 g/dL (11.5-16.0); IMMATURE GRAN ABSOLUTE AUTO 0.01 K/mm3 (0.00-0.10); IMMATURE GRAN PERCENT AUTO 0 % (0-1); LYMPHOCYTES PERCENT AUTO 10 % (21-46); MONOCYTES ABSOLUTE AUTO 0.59 K/mm3 (0.16-1.47); MONOCYTES PERCENT AUTO 10 % (4-13); Mean Corpuscular HGB 33.8 pg (26.0-34.0); Mean Corpuscular HGB Conc 32.9 g/dL (31.5-36.5); Mean Corpuscular Volume 103 fL (80-100); Mean Platelet Volume 10.6 fL (9.1-12.4); NEUTROPHILS ABSOLUTE AUTO 4.39 K/mm3 (1.96-9.15); NEUTROPHILS PERCENT AUTO 76 % (41-73); Platelet Count 146 K/mm3 (150-400); RDW Coefficient Variation 13.4 % (11.7-14.2); RDW Standard Deviation 50.8 fL (35.1-46.3); Red Blood Cell Count 2.78 M/mm3 (3.80-5.20); White Blood Cell Count 5.77 K/mm3 (4.00-11.30)
[2020-04-12 13:07] LABS: Albumin/Globulin Ratio 1.1 (0.8-1.8); Bilirubin, Total 1.6 mg/dL (0.1-1.0); Bun/Creatinine Ratio 26.9 (12.0-20.0); Creatinine, Blood 1.19 mg/dL (0.40-1.00); Globulin, Blood 2.8 g/dL (2.2-4.0); Potassium, Blood 4.3 mmol/L (3.5-5.5); Total Protein, Blood 5.8 g/dL (6.4-8.2); Troponin I 0.053 ng/mL (0.000-0.040)
[2020-04-12] MEDS ORDERED: ZOLP5 PO (14:14)
[2020-04-12 15:00] LABS: Influenza A, PCR Negative (NEGATIVE); Influenza B, PCR Negative (NEGATIVE); Resp Syncytial Virus, PCR Negative (NEGATIVE); SARS-Cov-2 (COVID-19) PCR, MMC Negative (NEGATIVE)
== END 2020-04-12 16:19 | disposition home or self-care (01) ==
LOC: ER 12:16
PROVIDERS: Emergency Medicine
DX: I13.0 Hypertensive heart and chronic kidney disease with heart failure and stage 1 through stage 4 chronic kidney disease, or unspecified chronic kidney disease (principal); I50.9 Heart failure, unspecified; R06.03 Acute respiratory distress; R09.02 Hypoxemia; E86.0 Dehydration; R62.7 Adult failure to thrive; E11.22 Type 2 diabetes mellitus with diabetic chronic kidney disease; N18.30 Chronic kidney disease, stage 3 unspecified; K21.9 Gastro-esophageal reflux disease without esophagitis; J44.9 Chronic obstructive pulmonary disease, unspecified; Z20.828 Contact with and (suspected) exposure to other viral communicable diseases; Z79.899 Other long term (current) drug therapy; Z79.51 Long term (current) use of inhaled steroids; Z86.718 Personal history of other venous thrombosis and embolism; Z86.73 Personal history of transient ischemic attack (TIA), and cerebral infarction without residual deficits
CPT/HCPCS: 0241U; 71045; 80053; 83880; 84484; 85025; 97110; 97162; 99285-25

== ENCOUNTER 2020-06-07 17:13 | Emergency (ER) | payer MEDICARE, OTHER ==
[~2020-06-07] VITALS: Ht 175.3 cm; Wt 84.8 kg
[~2020-06-07 17:13] MED LIST changes: -ALBU90OI INH; -BUDE10.22 INH; -BUPROPION XL150 MG PO; -ESCI10 PO; -PRAZ1 PO; +ZOLP5 PO
[2020-06-07] MEDS ORDERED: LEVOFLOXACIN250 M3 PO (17:39)
[2020-06-07 17:55] LABS: BASOPHILS ABSOLUTE AUTO 0.04 K/mm3 (0.00-0.23); BASOPHILS PERCENT AUTO 1 % (0-2); EOSINOPHILS ABSOLUTE AUTO 0.17 K/mm3 (0.00-0.68); EOSINOPHILS PERCENT AUTO 3 % (0-6); Hemoglobin 10.4 g/dL (11.5-16.0); IMMATURE GRAN ABSOLUTE AUTO 0.03 K/mm3 (0.00-0.10); IMMATURE GRAN PERCENT AUTO 1 % (0-1); LYMPHOCYTES ABSOLUTE AUTO 0.85 K/mm3 (0.84-5.20); LYMPHOCYTES PERCENT AUTO 15 % (21-46); MONOCYTES ABSOLUTE AUTO 0.75 K/mm3 (0.16-1.47); MONOCYTES PERCENT AUTO 13 % (4-13); Mean Corpuscular HGB Conc 32.5 g/dL (31.5-36.5); Mean Corpuscular Volume 99 fL (80-100); Mean Platelet Volume 10.2 fL (9.1-12.4); NEUTROPHILS ABSOLUTE AUTO 3.88 K/mm3 (1.96-9.15); NEUTROPHILS PERCENT AUTO 68 % (41-73); Platelet Count 150 K/mm3 (150-400); RDW Coefficient Variation 15.5 % (11.7-14.2); RDW Standard Deviation 55.9 fL (35.1-46.3); Red Blood Cell Count 3.25 M/mm3 (3.80-5.20); White Blood Cell Count 5.72 K/mm3 (4.00-11.30)
[2020-06-07 18:39] LABS: Albumin, Blood 3.7 g/dL (3.4-5.0); Albumin/Globulin Ratio 1.3 (0.8-1.8); Bilirubin, Total 0.8 mg/dL (0.1-1.0); Bun/Creatinine Ratio 32.4 (12.0-20.0); Calcium, Blood 8.8 mg/dL (8.5-10.1); Creatinine, Blood 1.36 mg/dL (0.40-1.00); Globulin, Blood 2.8 g/dL (2.2-4.0); Potassium, Blood 4.9 mmol/L (3.5-5.5); Total Protein, Blood 6.5 g/dL (6.4-8.2); Troponin I 0.016 ng/mL (0.000-0.040)
[2020-06-08] MEDS ORDERED: Prednisone50 MG PO (01:01)
[2020-07-26] MEDS ORDERED: BUPROPION HCL100 MG PO (20:05)
== END 2020-06-08 02:23 | disposition home or self-care (01) ==
LOC: ER 17:13
PROVIDERS: Emergency Medicine
DX: M79.89 Other specified soft tissue disorders (principal); J44.9 Chronic obstructive pulmonary disease, unspecified; M79.661 Pain in right lower leg; Z79.51 Long term (current) use of inhaled steroids; Z79.899 Other long term (current) drug therapy
CPT/HCPCS: 36415; 71045; 80053; 83880; 84484; 85025; 93005; 93010; 93971; 94640; 96365; 96375; 99285-25; J1940; J2930; J3475

== ENCOUNTER 2020-07-11 02:21 | Inpatient (IN) | payer OTHER, MEDICARE ==
[~2020-07-11] VITALS: Ht 175.3 cm; Wt 78.3 kg
[~2020-07-11 02:21] MED LIST changes: +LEVOFLOXACIN250 M3 PO; +Prednisone50 MG PO
[2020-07-11 02:45] LABS: Calcium, Ionized (POC) 1.31 mmol/L (1.10-1.46); Chloride (POC) 92 mmol/L (98-108); Creatinine (POC) 1.7 mg/dL (0.6-1.0); Glucose (ISTAT POC) 126 mg/dL (70-99); Hemoglobin (POC) 11.9 g/dL (12.0-16.0); Potassium (POC) 3.9 mmol/L (3.5-5.5); Sodium (POC) 133 mmol/L (135-148); Total CO2 (POC) 32 mmol/L (21-32)
[2020-07-11 02:52] LABS: BASOPHILS ABSOLUTE AUTO 0.04 K/mm3 (0.00-0.23); BASOPHILS PERCENT AUTO 1 % (0-2); EOSINOPHILS PERCENT AUTO 2 % (0-6); Hematocrit 33.2 % (33.0-51.0); IMMATURE GRAN ABSOLUTE AUTO 0.02 K/mm3 (0.00-0.10); IMMATURE GRAN PERCENT AUTO 0 % (0-1); LYMPHOCYTES ABSOLUTE AUTO 0.76 K/mm3 (0.84-5.20); LYMPHOCYTES PERCENT AUTO 15 % (21-46); MONOCYTES ABSOLUTE AUTO 0.54 K/mm3 (0.16-1.47); MONOCYTES PERCENT AUTO 11 % (4-13); Mean Corpuscular HGB Conc 33.1 g/dL (31.5-36.5); Mean Corpuscular Volume 100 fL (80-100); Mean Platelet Volume 10.6 fL (9.1-12.4); NEUTROPHILS ABSOLUTE AUTO 3.55 K/mm3 (1.96-9.15); NEUTROPHILS PERCENT AUTO 71 % (41-73); Platelet Count 149 K/mm3 (150-400); RDW Coefficient Variation 18.2 % (11.7-14.2); RDW Standard Deviation 66.2 fL (35.1-46.3); Red Blood Cell Count 3.33 M/mm3 (3.80-5.20); White Blood Cell Count 5.01 K/mm3 (4.00-11.30)
[2020-07-11 03:06] LABS: International Normalized Ratio 1.13
[2020-07-11 03:11] LABS: Troponin I 0.045 ng/mL (0.000-0.040)
[2020-07-11 03:12] LABS: Alanine Aminotransfer (ALT/SGP 26 U/L (12-78); Albumin, Blood 3.6 g/dL (3.4-5.0); Albumin/Globulin Ratio 1.2 (0.8-1.8); Alk Phos 234 U/L (50-136); Anion Gap 8 mmol/L (6-16); Aspartate Aminotrans (AST/SGOT 27 U/L (12-37); Bilirubin, Total 1.2 mg/dL (0.1-1.0); Blood Urea Nitrogen 40 mg/dL (8-24); Bun/Creatinine Ratio 28.8 (12.0-20.0); CO2, Blood 31 mmol/L (21-32); Calcium, Blood 10.6 mg/dL (8.5-10.1); Chloride, Blood 97 mmol/L (98-108); Creatinine, Blood 1.39 mg/dL (0.40-1.00); Globulin, Blood 2.9 g/dL (2.2-4.0); Glomerular Filtration Rate 38 (60-); Glucose, Blood 120 mg/dL (70-99); Potassium, Blood 3.9 mmol/L (3.5-5.5); Sodium, Blood 136 mmol/L (136-145); Total Protein, Blood 6.5 g/dL (6.4-8.2)
[2020-07-11 04:02] LABS: Influenza A, PCR NEGATIVE (NEGATIVE); Influenza B, PCR NEGATIVE (NEGATIVE); Resp Syncytial Virus, PCR NEGATIVE (NEGATIVE); SARS-Cov-2 (COVID-19) PCR, MMC NEGATIVE (NEGATIVE)
--- NOTE | 2020-07-11 05:46 | NUR ---
ASSUMPTION OF CARE RECEIVED REPORT FROM CAMILO NORTON IN ED AT 0425, PATIENT ARRIVED TO UNIT VIA GURNEY AT 0435. PATIENT A/O, ANSWERS QUESTIONS APPROPRIATELY. DENIED ANY PAIN, NITRO TURNED OFF. VITALS STABLE. 2L [address] NC [address] PER HOME USE, SATS ABOVE 95%. REVIEWED HISTORY WITH PATIENT. EDUCATED PATIENT REGARDING NEW MEDICATIONS, AND PLAN FOR CURRENT TREATMENT. HEPARIN IS INFUSING ORDERED BY PHARMACY. IV TO RAC WITH BRUISE AT INSERTION SITE, FLUSHED AND KT BACK BLOOD WITHOUT DISCOMFORTS FROM PATIENT. PATIENT STATES SHE IS INCONTINENT, ATTENDS PLACED PER ED ARREDONDO ATTEMPT WAS MADE BUT WAS UNSUCCESFUL. MEDICATION WERE GIVEN CHARTED. ELEVATED EXTREMITIES AND ORIENTED PATIENT TO CALL SYSTEM. PATIENT WITH EYES CLOSED AT THIS TIME.
--- NOTE | 2020-07-11 06:39 | NUR ---
SHIFT SUMMARY HEPARIN INFUSING ORDERED. LASIX GIVEN CHARTED. PATIENT INCONTINENT IN ATTENDS, ABLE TO NOTIFY RN OF SATURATED ATTENDS. NITRO REMAINS OFF AND DISCONNECTED FROM PATIENT. BLEEDING NOTED TO RIGHT AC IV, IV CATHETER NOTED TO BE SLIDING OUT OF INSERTION SITE. REMOVED IV WITH CATHETER INTACT AND PLACED GAUZE WITH COBAN TO AREA. PATIENT REPOSITIONED AND WANTED TO ATTEMPT SLEEP AGAIN. CONTINUES TO REPORT "0" PAIN. EXTREMETIES ELEVATED ON PILLOWS. 2L [address] NC [address]ACE WITH SATS ABOVE 95%. VITALS HAVE BEEN STABLE SINCE ADMISSION. WILL CONTINUE TO MONITOR AND REPORT TO ONCOMING RN.
--- NOTE | 2020-07-11 08:18 | NUR ---
PT REPORTS ONSET OF CHEST PRESSURE LEFT CHEST 10/29. NITRO GTT RESTARTED AT 5MCG/MIN. NO CHANGES ON MONITOR NOTED. CONTINUES TO BE IN A-FIB WITH RATES IN 50'S. VITALS ARE STABLE.
--- NOTE | 2020-07-11 08:30 | NUR ---
PT REPORTS THAT CHEST PAIN HAS FULLY RESOLVED AFTER STARTING NITRO GTT. VITALS REMAINED STABLE. PT CONFIRMED THAT SHE DIDN'T WANT ANY INVASIVE INTERVENTIONS.
--- NOTE | 2020-07-11 12:15 | NUR ---
REASSESSMENT PT CONTINUES TO HAVE INTERMITANT CHEST PAIN, NITRO GTT REMAINS AT 5 MCG/MIN. IMDUR STARTED. WORSENS WITH ANY ACTIVITY. PT DID HAVE EPISODE OF VOMITING WITH LUNCH, SHORTLY AFTER IMDUR GIVEN, MEDICATION WASN'T SEEN IN EMESIS. TROPONIN LEVEL TRENDING UP, DR GARCIA AWARE. A-FIB WITH RATES 50'S NOTED ON THE MONITOR, VITALS HAVE REMAINED STABLE.
--- NOTE | 2020-07-11 18:33 | NUR ---
SHIFT SUMMARY PT IS ALERT AND ORIENTED x4. NITRO GTT WAS RESTARTED THIS AM WITH PT C/O OF CHEST PAIN. THIS AFTERNOON PT STARTED ON IMDUR AND WAS ABLE TO TITRATE NITRO GTT OFF THIS AFTERNOON. THIS EVENING PT IS REPORTING C/O HEADACHE AND HAS DENIED CHEST PAIN SINCE STOPPING NITRO GTT. HEPARIN GTT CONTINUES PER PHARMACY DOSING. PT REMAINS ON HOME O2 OF 2L VIA NC, MAINTAINING SPO2 >92%. PT DOESN'T HAVE MUCH OF APPETITE AND REPORTS THAT SHE HAS BEEN EATING LESS AT HOME DUE TO GI DISCOMFORT. VITALS HAVE BEEN STABLE. A-FIB WITH RATES 50'S-60'S NOTED ON THE MONITOR.
--- NOTE | 2020-07-11 19:36 | NUR ---
ASSUMPTION OF CARE RECEIVED REPORT AT 1915 FROM JOSH NORTON. ASSUMED CARE OF PATIENT. PATIENT IN BED WITH EYES CLOSED, EASILY AWAKENS. REPORTED PAIN IN LEFT SHOULDER AND HEADACHE 3/10 AND COMFORTABLE. HEPARIN ADJUSTED AND INFUSING AT 14UN/KG. VITALS STABLE. WILL REVIEW ORDERS AND TREAT PRESCRIBED.
--- NOTE | 2020-07-11 20:10 | NUR ---
HEADACHE PATIENT REPORTS 7/10 HEADACHE. TOO EARLY FOR TYLENOL, ALEXANDRA SUPERVISOR TAN ROOM CALLED AND RECEIVED ORDERS FOR FENTANYL. WILL TREAT PRESCRIBED AND EVALUATE ITS EFFECTIVENESS.
--- NOTE | 2020-07-12 00:02 | NUR ---
REASSESSMENT NO ACUTE CHANGES FROM PREVIOUS ASSESSMENT. PATIENT EASILY AWAKENS. ATTENDS WAS CHANGED CHARTED. PATIENT REPOSITIONED. DENIES PAIN OR DISCOMFORTS. VITALS STABLE. CALL LIGHT IN REACH.
--- NOTE | 2020-07-12 02:30 | NUR ---
NOSE BLEED PATIENT WITH BLOOD CONTINUOUSLY OOZING OUT OF NOSE. SATURATED MULTIPLE TISSUES, RUNNING DOWN HER NECK TO HER BACK AND SOAKING SHEETS. NOTIFIED DR. LLOYD, RECEIVED ORDERS FOR NASAL SPRAY. WILL ADMINISTER AND MONITOR EFFECTIVENESS.
[2020-07-12 03:23] LABS: BASOPHILS ABSOLUTE AUTO 0.03 K/mm3 (0.00-0.23); BASOPHILS PERCENT AUTO 1 % (0-2); EOSINOPHILS ABSOLUTE AUTO 0.08 K/mm3 (0.00-0.68); EOSINOPHILS PERCENT AUTO 1 % (0-6); Hemoglobin 9.7 g/dL (11.5-16.0); IMMATURE GRAN ABSOLUTE AUTO 0.02 K/mm3 (0.00-0.10); IMMATURE GRAN PERCENT AUTO 0 % (0-1); LYMPHOCYTES ABSOLUTE AUTO 0.58 K/mm3 (0.84-5.20); LYMPHOCYTES PERCENT AUTO 10 % (21-46); MONOCYTES ABSOLUTE AUTO 0.59 K/mm3 (0.16-1.47); MONOCYTES PERCENT AUTO 10 % (4-13); Mean Corpuscular HGB 32.9 pg (26.0-34.0); Mean Corpuscular HGB Conc 33.4 g/dL (31.5-36.5); Mean Corpuscular Volume 98 fL (80-100); Mean Platelet Volume 10.7 fL (9.1-12.4); NEUTROPHILS ABSOLUTE AUTO 4.83 K/mm3 (1.96-9.15); NEUTROPHILS PERCENT AUTO 79 % (41-73); Platelet Count 150 K/mm3 (150-400); RDW Coefficient Variation 18.6 % (11.7-14.2); RDW Standard Deviation 65.3 fL (35.1-46.3); Red Blood Cell Count 2.95 M/mm3 (3.80-5.20); White Blood Cell Count 6.13 K/mm3 (4.00-11.30)
[2020-07-12 03:40] LABS: Albumin, Blood 3.2 g/dL (3.4-5.0); Anion Gap 5 mmol/L (6-16); Blood Urea Nitrogen 37 mg/dL (8-24); Bun/Creatinine Ratio 24.8 (12.0-20.0); CO2, Blood 33 mmol/L (21-32); Calcium, Blood 9.7 mg/dL (8.5-10.1); Chloride, Blood 96 mmol/L (98-108); Creatinine, Blood 1.49 mg/dL (0.40-1.00); Glomerular Filtration Rate 35 (60-); Glucose, Blood 116 mg/dL (70-99); Magnesium, Blood 1.6 mg/dL (1.6-2.4); Phosphorus, Blood 3.6 mg/dL (2.5-4.9); Potassium, Blood 4.2 mmol/L (3.5-5.5); Sodium, Blood 134 mmol/L (136-145)
--- NOTE | 2020-07-12 04:00 | NUR ---
REASSESSMENT PATIENT'S NOSE BLEED HAS APPEARED TO STOP. CLEANED DRIED BLOOD FROM AROUND PATIENT. PATIENT STATED SHE JUST WANTED TO SLEEP FOR A WHILE BEFORE COMPLETING A LINEN CHANGE. VITALS STABLE, NO OTHER ACUTE CHANGES TO ASSESSMENT. CONTINUING TO MONITOR. CALL LIGHT IN REACH.
--- NOTE | 2020-07-12 06:21 | NUR ---
SHIFT SUMMARY PATIENT ON HEPARIN THROUGH NIGHT. DEVELOPED NOSE BLEED WHILE ASLEEP. PATIENT STATED THIS HAPPENS FREQUENTLY AT HOME. NOTIFIED DR. LLOYD PREVIOUSLY CHARTED. NASAL SPRAY WAS GIVEN AND BLEEDING SUBSIDED. PATIENT RESTED COMFORTABLY MOST OF NIGHT. AWOKE THIS AM WITH CONGESTION, WET COUGH NON PRODUCTIVE. RT GIVING ORDERED INHALERS. VITALS REMAINED STABLE. 2L O2 VIA NC ON THROUGH NIGHT. PATIENT ASSISTED WITH TURNS AND NOTIFIED RN WITH EACH SATURATED/INCONTINENT ATTENDS. WILL CONTINUE TO MONITOR AND REPORT TO ONCOMING RN.
--- NOTE | 2020-07-12 12:01 | NUR ---
AM NOTE... ASSUMED CARE OF PT AT 0700. PT IS A&Ox4, PLEASENT AND COOPERATIVE WITH CARE. PT'S VS AT THIS TIME ARE STABLE, SHE IS IN CONTROLLED AFIB IN THE 70'S. BP STABLE. HEPARIN GTT RUNNING PER ORDERS AT 15UNITS/KG/HR. PT IS C/O OF "FEELING LIKE MY CHEST IS TOO FULL." L/S SCATTERED WHEEZES HEARD T/O WITH FAINT CRACKLES NOTED TO THE LEFT BASE. PT IS ON 2L NC WITH O2 SATS >95% BUT PT C/O OF "FEELING LIKE I'M NOT GETTING ENOUGH OXYGEN." PT WAS GIVEN IV LASIX PER ORDERS AND 2 SL NITRO PER ORDERS. PT WAS ALSO GIVEN THE PO IMDUR PER ORDERS, THIS IMPROVED HER FEELING OF SOB AND THE "CHEST FULLNESS." PT HAS DENIED THESE FEELINGS SINCE GETTING THE IMDUR AT 0811. AT APROX 0830 PT'S NOSE STARTED BLEEDING AGAIN, THE WET PRIMER POWDER BLENDER WAS CALLED AND AN ORDER TO D/C THE HEPARIN GTT WAS OBTAINED. PHARMACY WAS NOTIFIED OF THE NEW ORDERS. WILL CONTINUE TO MONITOR.
--- NOTE | 2020-07-12 14:37 | NUR ---
PT UPDATE... PT HAD A BEDBATH AND WAS HELPED UP TO A CHAIR AT THE BEDSIDE, PT WAS MOD 1P W/FWW AND GAITBELT. PT SAT UP IN THE CHAIR FOR APROX 1.5 HRS THEN GOT BACK TO BED. PT'S VS STABLE T/O THIS EVENT, PT DENIED ANY CHEST PAIN/PRESSURE OR "FULLNESS" PT ALSO DENIED ANY SOB WITH THIS ACTIVITY. WILL CONITNUE TO MONITOR.
--- NOTE | 2020-07-12 17:40 | NUR ---
SHIFT SUMMARY... NO ACUTE NEGATIVE CHANGES NOTED THIS SHIFT. PT'S VS HAVE BEEN STABLE. PT DENIES ANY CHEST PAIN/PRESSURE/"FULLNESS" SINCE THIS AM. PT HAS BEEN UP TO THE CHAIR AND BACK WITH 1PERSON ASSIST. PT CONTINUES TO BE INCONT OF URINE, ATTENDS IN PLACE AND ARE C/D/I, PT HAS BEEN FLOODING ATTENDS WITH EVERY VOID. PT HAS BEEN SLEEPING MOST OF THE SHIFT BUT WAKES EASILY. CALL LIGHT IN REACH WILL CONTINUE TO MONITOR UNTIL REPORT IS GIVEN TO ONCOMING RN.
[2020-07-13 03:33] LABS: BASOPHILS ABSOLUTE AUTO 0.02 K/mm3 (0.00-0.23); BASOPHILS PERCENT AUTO 0 % (0-2); EOSINOPHILS ABSOLUTE AUTO 0.05 K/mm3 (0.00-0.68); EOSINOPHILS PERCENT AUTO 1 % (0-6); Hematocrit 28.3 % (33.0-51.0); Hemoglobin 9.5 g/dL (11.5-16.0); IMMATURE GRAN ABSOLUTE AUTO 0.03 K/mm3 (0.00-0.10); IMMATURE GRAN PERCENT AUTO 1 % (0-1); LYMPHOCYTES ABSOLUTE AUTO 0.71 K/mm3 (0.84-5.20); LYMPHOCYTES PERCENT AUTO 13 % (21-46); MONOCYTES ABSOLUTE AUTO 0.67 K/mm3 (0.16-1.47); MONOCYTES PERCENT AUTO 12 % (4-13); Mean Corpuscular HGB Conc 33.6 g/dL (31.5-36.5); Mean Corpuscular Volume 98 fL (80-100); Mean Platelet Volume 10.4 fL (9.1-12.4); NEUTROPHILS PERCENT AUTO 74 % (41-73); Platelet Count 143 K/mm3 (150-400); RDW Coefficient Variation 18.7 % (11.7-14.2); RDW Standard Deviation 66.6 fL (35.1-46.3); Red Blood Cell Count 2.88 M/mm3 (3.80-5.20); White Blood Cell Count 5.68 K/mm3 (4.00-11.30)
[2020-07-13 03:49] LABS: Calcium, Blood 8.9 mg/dL (8.5-10.1); Creatinine, Blood 1.67 mg/dL (0.40-1.00); Magnesium, Blood 1.8 mg/dL (1.6-2.4); Phosphorus, Blood 3.5 mg/dL (2.5-4.9); Potassium, Blood 4.3 mmol/L (3.5-5.5)
--- NOTE | 2020-07-13 06:38 | NUR ---
PT RESTS QUIETLY THROUGHOUT SHIFT, REPOSITIONS SELF FOR COMFORT IN BED HOWEVER IS NOTED TO FREQUENTLY HAVE FEET OFF BOTTOM LEFT SIDE OF BED AND HEAD AGAINST RIGHT UPPER BEDRAIL. ASSISTANCE HAS BEEN PROVIDED NEEDED TO STRAIGHTEN PT IN BED. ONE EPISODE OF FEELING OF SHORTNESS OF BREATH WITH OXYGEN SATURATION HIGH 90S AT THE TIME, PT STATED THAT IT FELT THE SAME YESTERDAY AM AT WHICH TIME NITRO SL ALLEVIATED FEELING, NTG SL X 1 THIS SHIFT WITH REPORT OF RESOLUTION OF SYMPTOMS, PT DID HAVE A SECOND EPISODE OF FEELING SHORT OF BREATH HOWEVER AT THAT TIME HER NASAL CANNULA WAS DISLODGED FROM NARES AND SATS WERE MID 80S, PT REPORTED RESOLUTION OF FEELING OF SHORTNESS OF BREATH WITH RETURN OF SATS TO MID 90S. OTHERWISE NO ACUTE CHANGES THIS SHIFT.
--- NOTE | 2020-07-13 11:50 | NUR ---
REASSESSMENT PT RESTING IN BED, EATING LUNCH. CURRENTLY DENIES ANY CHEST PAIN, DYSPNEA. PT REMAINS ON HOME O2 OF 2L WITH SPO2 > 92%. VITALS REMAIN STABLE. A-FIB ON THE MONITOR WITH RATES IN 60'S.
--- NOTE | 2020-07-13 14:38 | NUR ---
TRANSFER OF CARE REPORT GIVEN TO ERROL ZHANG ON MEDICAL FLOOR. PT WILL TRANSFER VIA BED. BELONGINGS GATHERED AND TRANSFERRED WITH PT.
--- NOTE | 2020-07-13 15:19 | NUR ---
PT TRANSFER TO [facility] PT ARRIVED TO UNIT AT 1500. PT IS AOX4. PT IS ON 2 L O2 VIA NC. PT IS CLEAN AND IN BED, LOW POSITION WITH CALL LIGHT IN REACH.
--- NOTE | 2020-07-13 16:43 | NUR ---
SHIFT SUMMARY PT IS AOX4. PT ARRIVED TO UNIT AT APPROXIMATELY 1500. PT DENIES CP, N/V, SOB. PT IS ON BEDREST CURRENTLY DUE TO EXERTIONAL CP EXPERIENCED IN THE ICU. TELE IS RUNNING AFIB IN THE 60S. PT DID NOT HAVE VISITORS THIS BIGG. PT IS IN BED, CALL LIGHT IN REACH, BED IN LOW POSITION.
--- NOTE | 2020-07-14 03:35 | NUR ---
SHIFT SUMMARY PATIENT HAD CHEST PAIN DURING SHIFT CHANGE AND DAY RN GAVE NITROGLYCERIN X ONE AND PAIN RESOLVED. AXOX 4 AND BEDREST. ON 2L O2 NC. PIV REMAINS INTACT. EXECUTIVE TALENT ACQUISITION CONSULTANT REPORTS AFIB 68. VSS/AFEBRILE. REQUESTED AMBIEN 5 MG FOR INSOMNIA PER EMAR. PATIENT ABLE TO SLEEP. DENIES SOB AND N/V. COOPERATIVE WITH CARE. CALL LIGHT IN REACH. BED IN LOWEST POSITION. WILL CONTINUE TO MONITOR UNTIL DAY SHIFT NURSE ASSUMES CARE.
[2020-07-14 04:59] LABS: BASOPHILS ABSOLUTE AUTO 0.03 K/mm3 (0.00-0.23); BASOPHILS PERCENT AUTO 1 % (0-2); EOSINOPHILS ABSOLUTE AUTO 0.11 K/mm3 (0.00-0.68); EOSINOPHILS PERCENT AUTO 2 % (0-6); Hematocrit 28.1 % (33.0-51.0); Hemoglobin 9.2 g/dL (11.5-16.0); IMMATURE GRAN ABSOLUTE AUTO 0.03 K/mm3 (0.00-0.10); IMMATURE GRAN PERCENT AUTO 1 % (0-1); LYMPHOCYTES PERCENT AUTO 14 % (21-46); MONOCYTES ABSOLUTE AUTO 0.69 K/mm3 (0.16-1.47); MONOCYTES PERCENT AUTO 12 % (4-13); Mean Corpuscular HGB 32.1 pg (26.0-34.0); Mean Corpuscular HGB Conc 32.7 g/dL (31.5-36.5); Mean Corpuscular Volume 98 fL (80-100); Mean Platelet Volume 10.7 fL (9.1-12.4); NEUTROPHILS ABSOLUTE AUTO 3.89 K/mm3 (1.96-9.15); NEUTROPHILS PERCENT AUTO 70 % (41-73); Platelet Count 147 K/mm3 (150-400); RDW Coefficient Variation 18.8 % (11.7-14.2); RDW Standard Deviation 66.4 fL (35.1-46.3); Red Blood Cell Count 2.87 M/mm3 (3.80-5.20); White Blood Cell Count 5.55 K/mm3 (4.00-11.30)
[2020-07-14 05:22] LABS: Bun/Creatinine Ratio 22.3 (12.0-20.0); Calcium, Blood 8.7 mg/dL (8.5-10.1); Creatinine, Blood 2.06 mg/dL (0.40-1.00); Magnesium, Blood 1.8 mg/dL (1.6-2.4); Potassium, Blood 4.6 mmol/L (3.5-5.5)
--- NOTE | 2020-07-14 17:43 | NUR ---
Met with pt this afternoon in her room. She is pleasant and cooperative. However, early into our vist, pt began to wheeze significantly. Primary nurse called Respitatory therapy to administer a breathing treatment. Plan to talk more indpeth tomoo.
--- NOTE | 2020-07-14 18:05 | NUR ---
Spiritual care note: Mrs. Nunes was very sleepy and awakened briefly for prayer for healing. No family present. [facility] will remain available.
--- NOTE | 2020-07-14 19:16 | NUR ---
SHIFT SUMMARY PT IS AOX4. PT MEDICATED WITH PRN BREATHING TX X1 FOR SOB. PT MEDICATED FOR PAIN X1. PT DENIES N/V. PT WORKED WITH PT/OT WHO STATED PT IS ONE PERSON ASSIST FOR TRANSFERS AND WOULD BENEFIT FROM SNF PLACEMENT. BLOOD GLUCOSE ORDERS CHANGED TO BID. PT DID NOT HAVE VISITORS TODAY. PT IS IN BED, CALL LIGHT IN REACH, BED IN LOW POSITION.
--- NOTE | 2020-07-15 04:53 | NUR ---
SHIFT SUMMARY PATIENT HAD NO ACUTE CHANGES OBSERVED. DENIES CHEST PAIN, SOB, AND N/V. AXOX 4 AND TWO PERSON ASSIST TO BSC. PIVS REMAIN INTACT. INLETTER REPORTS A-FIB 63. ON 2L O2 NC AND BASELINE. RT IN FOR SCHEDULE BREATHING TX. VSS/AFEBRILE. CBG 148. AMBIEN 5 MG GIVEN FOR INSOMNIA. CALL LIGHT IN REACH. BED IN LOWEST POSITION. WILL CONTINUE TO MONITOR UNTIL DAY SHIFT NURSE ASSUMES CARE.
[2020-07-15 04:55] LABS: BASOPHILS ABSOLUTE AUTO 0.04 K/mm3 (0.00-0.23); BASOPHILS PERCENT AUTO 1 % (0-2); EOSINOPHILS ABSOLUTE AUTO 0.09 K/mm3 (0.00-0.68); EOSINOPHILS PERCENT AUTO 2 % (0-6); Hematocrit 28.6 % (33.0-51.0); Hemoglobin 9.4 g/dL (11.5-16.0); IMMATURE GRAN ABSOLUTE AUTO 0.03 K/mm3 (0.00-0.10); IMMATURE GRAN PERCENT AUTO 1 % (0-1); LYMPHOCYTES ABSOLUTE AUTO 0.66 K/mm3 (0.84-5.20); LYMPHOCYTES PERCENT AUTO 12 % (21-46); MONOCYTES ABSOLUTE AUTO 0.67 K/mm3 (0.16-1.47); MONOCYTES PERCENT AUTO 12 % (4-13); Mean Corpuscular HGB Conc 32.9 g/dL (31.5-36.5); Mean Corpuscular Volume 100 fL (80-100); Mean Platelet Volume 10.9 fL (9.1-12.4); NEUTROPHILS ABSOLUTE AUTO 4.19 K/mm3 (1.96-9.15); NEUTROPHILS PERCENT AUTO 74 % (41-73); Platelet Count 141 K/mm3 (150-400); RDW Coefficient Variation 18.9 % (11.7-14.2); RDW Standard Deviation 69.8 fL (35.1-46.3); Red Blood Cell Count 2.85 M/mm3 (3.80-5.20); White Blood Cell Count 5.68 K/mm3 (4.00-11.30)
[2020-07-15 05:23] LABS: Bun/Creatinine Ratio 22.5 (12.0-20.0); Calcium, Blood 8.9 mg/dL (8.5-10.1); Creatinine, Blood 2.31 mg/dL (0.40-1.00); Magnesium, Blood 2.1 mg/dL (1.6-2.4)
[2020-07-15] MEDS ORDERED: FURO20 PO (14:57)
[2020-07-15] MEDS ORDERED: ASPI81CH PO (14:58)
[2020-07-15] MEDS ORDERED: ACET325 PO (14:58)
[2020-07-15] MEDS ORDERED: BISA10S PR (14:59)
[2020-07-15] MEDS ORDERED: AZIT250 PO (14:59)
[2020-07-15] MEDS ORDERED: CLOP75 PO (15:00)
[2020-07-15] MEDS ORDERED: CEFP200 PO (15:00)
[2020-07-15] MEDS ORDERED: DOCU100 PO (15:00)
[2020-07-15] MEDS ORDERED: VISBIOME 112.51 EACH PO (15:01)
[2020-07-15] MEDS ORDERED: RANO500T PO (15:01)
[2020-07-15] MEDS ORDERED: SENNA LAXATIVE8.6 MG PO (15:01)
[2020-07-15] MEDS ORDERED: Isosorbide Mono30 MG PO (15:01)
[2020-07-15 16:33] LABS: Influenza A, PCR NEGATIVE (NEGATIVE); Influenza B, PCR NEGATIVE (NEGATIVE); Resp Syncytial Virus, PCR NEGATIVE (NEGATIVE); SARS-Cov-2 (COVID-19) PCR, MMC NEGATIVE (NEGATIVE)
--- NOTE | 2020-07-15 17:40 | NUR ---
PT BEING DISCHARGED TO [facility]. IV LINES AND TELE DC'D. REPORT CALLED IN AND GIVEN TO [facility] RN. PT MAKES NO C/O PAIN OR SOB THIS SHIFT. STAFF WILL AID IN TRANSFER.
[2020-07-26] MEDS ORDERED: BUPROPION HCL100 MG PO (20:05)
== END 2020-07-15 18:05 | DRG 280 ==
LOC: ER 02:21 → ICUW 04:30 → MEDS 07-13 15:00
PROVIDERS: Emergency Medicine; Family Medicine; ADMIT Internal Medicine
DX: I21.19 ST elevation (STEMI) myocardial infarction involving other coronary artery of inferior wall (principal); I50.33 Acute on chronic diastolic (congestive) heart failure; J18.9 Pneumonia, unspecified organism; I13.0 Hypertensive heart and chronic kidney disease with heart failure and stage 1 through stage 4 chronic kidney disease, or unspecified chronic kidney disease; I48.20 Chronic atrial fibrillation, unspecified; J96.11 Chronic respiratory failure with hypoxia; D68.32 Hemorrhagic disorder due to extrinsic circulating anticoagulants; D63.1 Anemia in chronic kidney disease; Z66 Do not resuscitate; J44.9 Chronic obstructive pulmonary disease, unspecified; I27.20 Pulmonary hypertension, unspecified; Z88.8 Allergy status to other drugs, medicaments and biological substances; F31.9 Bipolar disorder, unspecified; N18.30 Chronic kidney disease, stage 3 unspecified; E11.22 Type 2 diabetes mellitus with diabetic chronic kidney disease; G89.29 Other chronic pain; Z86.711 Personal history of pulmonary embolism; Z86.718 Personal history of other venous thrombosis and embolism; Z86.73 Personal history of transient ischemic attack (TIA), and cerebral infarction without residual deficits; Z90.49 Acquired absence of other specified parts of digestive tract; Z96.653 Presence of artificial knee joint, bilateral; Z90.710 Acquired absence of both cervix and uterus; Z98.890 Other specified postprocedural states; Z79.899 Other long term (current) drug therapy; Z20.822 Contact with and (suspected) exposure to COVID-19; R04.0 Epistaxis; T45.515A Adverse effect of anticoagulants, initial encounter; Z53.29 Procedure and treatment not carried out because of patient's decision for other reasons
CPT/HCPCS: 0241U; 36415; 71045; 80047; 80048; 80053; 80069; 82947; 83735; 83880; 84100; 84145; 84484; 85014; 85025; 85610; 85730; 93005; 93010; 93306; 94640; 94760; 94762; 96365; 96366; 96368; 96375; 97110; 97116; 97163; 97165; 97530; 97535; 99285-25; A9270; J0696; J1644; J1940; J2270; J2405; J3010; J3475; J7050

== ENCOUNTER 2020-07-26 13:31 | Inpatient (IN) | payer OTHER, MEDICARE ==
[~2020-07-26] VITALS: Ht 172.7 cm; Wt 87.0 kg
[~2020-07-26 13:31] MED LIST changes: +CLOP75 PO; +FURO20 PO; +Isosorbide Mono30 MG PO; +RANO500T PO; +SENNA LAXATIVE8.6 MG PO; +VISBIOME 112.51 EACH PO
[2020-07-26 14:00] LABS: Calcium, Ionized (POC) 1.07 mmol/L (1.10-1.46); Chloride (POC) 98 mmol/L (98-108); Creatinine (POC) 3.3 mg/dL (0.6-1.0); Glucose (ISTAT POC) 83 mg/dL (70-99); Hemoglobin (POC) 8.5 g/dL (12.0-16.0); Potassium (POC) 5.2 mmol/L (3.5-5.5); Sodium (POC) 134 mmol/L (135-148); Total CO2 (POC) 28 mmol/L (21-32)
[2020-07-26 14:44] LABS: Source, Urine Catheter
[2020-07-26 14:46] LABS: BASOPHILS ABSOLUTE AUTO 0.07 K/mm3 (0.00-0.23); BASOPHILS PERCENT AUTO 1 % (0-2); EOSINOPHILS ABSOLUTE AUTO 0.06 K/mm3 (0.00-0.68); EOSINOPHILS PERCENT AUTO 0 % (0-6); Hematocrit 28.4 % (33.0-51.0); Hemoglobin 9.2 g/dL (11.5-16.0); IMMATURE GRAN ABSOLUTE AUTO 0.08 K/mm3 (0.00-0.10); IMMATURE GRAN PERCENT AUTO 1 % (0-1); LYMPHOCYTES ABSOLUTE AUTO 0.93 K/mm3 (0.84-5.20); LYMPHOCYTES PERCENT AUTO 6 % (21-46); MONOCYTES ABSOLUTE AUTO 1.35 K/mm3 (0.16-1.47); MONOCYTES PERCENT AUTO 9 % (4-13); Mean Corpuscular HGB 32.1 pg (26.0-34.0); Mean Corpuscular HGB Conc 32.4 g/dL (31.5-36.5); Mean Corpuscular Volume 99 fL (80-100); Mean Platelet Volume 11.3 fL (9.1-12.4); NEUTROPHILS ABSOLUTE AUTO 12.38 K/mm3 (1.96-9.15); NEUTROPHILS PERCENT AUTO 83 % (41-73); NRBC ABSOLUTE 0.06 K/mm3 (0.00-0.02); NRBC Auto 0.4 /100 WBC (0.0-0.2); Platelet Count 285 K/mm3 (150-400); RDW Coefficient Variation 17.5 % (11.7-14.2); RDW Standard Deviation 63.3 fL (35.1-46.3); Red Blood Cell Count 2.87 M/mm3 (3.80-5.20); White Blood Cell Count 14.87 K/mm3 (4.00-11.30)
[2020-07-26 14:57] LABS: Appearance, Urine Hazy (Clear); Blood, Urine 2+ (Neg); Color, Urine Amber (P-Yellow); Glucose Qualitative, Urine Neg (Neg); Ketones, Urine 1+ (Neg); Leukocyte Esterase, Urine 2+ (Neg); Nitrite, Urine Pos (Neg); Protein, Urine 3+ (Neg); Urobilinogen, Urine 1+ (Normal)
[2020-07-26 15:03] LABS: Albumin, Blood 3.6 g/dL (3.4-5.0); Albumin/Globulin Ratio 1.1 (0.8-1.8); Bilirubin, Total 1.8 mg/dL (0.1-1.0); Bun/Creatinine Ratio 22.7 (12.0-20.0); Calcium, Blood 9.2 mg/dL (8.5-10.1); Creatinine, Blood 2.69 mg/dL (0.40-1.00); Globulin, Blood 3.3 g/dL (2.2-4.0); Potassium, Blood 5.3 mmol/L (3.5-5.5); Total Protein, Blood 6.9 g/dL (6.4-8.2)
[2020-07-26 15:16] LABS: Bilirubin, Urine 1+ (Neg)
[2020-07-26 15:19] LABS: Amorphous Light (0-Heavy); Bacteria Few /hpf; Squamous Epithelial Cells Few /hpf (Few)
[2020-07-26] MEDS ORDERED: FURO40 PO (19:15)
[2020-07-26] MEDS ORDERED: POTA10T PO (19:16)
[2020-07-26] MEDS ORDERED: Lipitor80 MG PO (20:04)
[2020-07-26] MEDS ORDERED: SYMBICORT 80-10.2 GM INH (20:04)
[2020-07-26] MEDS ORDERED: BUPROPION XL150 M1 PO (20:05)
[2020-07-26] MEDS ORDERED: ESCI10 PO (20:06)
[2020-07-26] MEDS ORDERED: HYDR1TAB94 PO (20:07)
[2020-07-26] MEDS ORDERED: LEVSOD100 PO (20:08)
[2020-07-26] MEDS ORDERED: METO50 PO (20:08)
[2020-07-26] MEDS ORDERED: ALBU90OI INH (20:09)
[2020-07-26] MEDS ORDERED: PRAZ1 PO (20:09)
[2020-07-26] MEDS ORDERED: FERSU300 PO (20:10)
[2020-07-26] MEDS ORDERED: ASCO500 PO (20:10)
[2020-07-26] MEDS ORDERED: NITR.4SL SL (20:11)
--- NOTE | 2020-07-26 20:15 | NUR ---
REPORT RECIEVED FROM ROSSY GRAHAM RN, AND AWAITING PT T/F TO ROOM 350.
--- NOTE | 2020-07-26 21:05 | NUR ---
PT T/F TO ROOM 350 AT 2030 VIA ROZ W/NIECE (JOHNSON) AT BEDSIDE. SHE IS VERY DROWSY, WAKEFUL TO VOICE, ORIENTED TO SELF/FAMILY BUT HAS AMS OTHERWISE. SHE APPEARS UNCOMFORTABLE AND DISTRESSED BUT HAS DIFFICULTY COMMUNICATING EFFECTIVELY DESPITE ATTEMPTS. SOME SHORT PHRASES AND ONE WORD RESPONSES ARE AUDIBLE. SHE HAS DENIED PAIN AND ANSWERED SOME YES/NO Q'S BUT ACCURACY OF RESPONSES IS QUESTIONABLE. PT IS VERY FIGITY AND SPASTIC IN BED W/INVOLUNTARY APPEARING MOVEMENTS. SHE ATTEMPTS TO FOLLOW INSTRUCTION AND VOCALIZE NEEDS BUT JAW IS INTERMITTENTLY CLENCHED TIGHT AND SPASTICITY INTERFERES W/INTENTIONAL ACTIONS. RESPS APPEAR SLIGHTLY IRREGULAR AND TACHY, 02 TITRATED TO 3.5L TO MAINTAIN SPO2>89%. ALL OTHER VSS. PT IS UNABLE TO SAFELY TAKE PO MEDS AT THIS TIME D/T CONFUSION AND ASPIRATION RISK. PLAN TO DISCUSS THIS W/MD IN ADDITION TO RECENT LACTIC ACID ELEVATION, PRESENTATION AND O2 NEEDS. BED ALARM ON FOR POSSIBLE IMPULSIVITY W/CALL LIGHT IN REACH. FAMILY PROVIDED ADMIT INFORMATION SINCE PT IS UNABLE AT THIS TIME.
--- NOTE | 2020-07-26 21:45 | NUR ---
SPO2 80'S% ON 3.5L O2. TITRATED O2 TO 4-5L TO MAINTAIN SPO2 >89%. PT APPEARS TACHYPNEIC AND SOB W/SHALLOW IRREGULAR RESPS. SHE CONT'S DROWSY, CONFUSED W/AMS AND IS HAVING DIFFICULTY COMMUNICATING W/STAFF. SPASITICITY OF EXT'S PERSISTS. SHE APPEARS UNCOMFORTABLE AND POSSIBLY IN PAIN BUT PT UNSAFE TO TAKE PO MEDS AT THIS TIME. LACTIC ACID TRENDED UPWARD TO 4.8 (WAS 2.2) AND PT HAD X1 LR BOLUS IN ER. ALEXANDRA NOTIFIED W/NEW ORDERS RECIEVED: BD PROTOCOL, CONT BIOX, STAT ABG, 1L NS BOLUS, FENTANYL 25-50MCG IV Q2P RX'D AND SHE INSTRUCTED TO HOLD CARDIAC MEDS D/T SEPSIS. WILL MEDICATED WHEN AVAILABLE FROM PHARMACY. RT AWARE OF NEW ORDERS.
[2020-07-26 22:26] LABS: PO2 Arterial 71.4 mmHg (80-100); pH Blood Arterial 7.37 (7.35-7.45)
--- NOTE | 2020-07-26 23:40 | NUR ---
LACTIC ACID REMAINS CRITICAL (NOW 4.0 WAS 4.8) AFTER 1LNS BOLUS AND COMMENCEMENT ON NS AT 75 ML/HR. VITALS ARE SLIGHTLY IMPROVING AND BP HAS TRENDED UPWARD (NOW 113/78 WAS 100/66). HR CONT'S AFIB AT 80'S-90'S BPM. SHE CONT'S TO PRESENT W/AMS, ANXIETY, SOB, MUSCULAR SPASTICITY AND INCREASE 02 NEEDS. NO NEW ORDERS RECIEVED AT THIS TIME BUT SHE STATED SHE'D ENSURE WAS AWARE OF CONCERNS.
--- NOTE | 2020-07-27 00:33 | NUR ---
NOTIFIED OF MULTITUDE OF CONCERNS RE: PATIENT PRESENTATION IN ABSENCE OF ANY NEW ACUTE CLINICAL FINDINGS. I'D PREVIOUSLY BEEN IN FREQUENT COMMUNICATION W/ALEXANDRA D/T SHARED CONCERNS RE: PATIENT'S SYMPTOMS AND APPARENT DISTRESS. ALEXANDRA STATED THAT SHE'D RECOMMEND EVALUATION BY DURING THEIR REPORT. NO NEW ORDERS WERE RECIEVED BY AT THIS TIME BUT HE SAID HE WOULD ROUND ON PATIENT LATER. WCTM CLOSELY FOR CHANGES/WORSENING.
--- NOTE | 2020-07-27 01:16 | NUR ---
CAME TO SEE PT AND ADVISED THAT STAFF CLARIFY CODE STATUS. MARIA ELENA STATED DNR W/LIMITED INTERVENTIONS BUT PT WAS MADE FULL CODE IN ER UPON DISCUSSION W/PATIENT'S . HER NIECE (JOHNSON) IS LISTED POA AND HEALTHCARE GROUP HOME WORKER UPON ADVANCE DIRECTIVE. THIS RN ATTEMPTED TO CLARIFY CODE STATUS D/T IT DETERMINING DIRECTION OF CARE. STATED PT WOULD NEED TO BE TRANSFERRED TO ICU IF PT IS TO REMAIN FULL CODE AND CURRENT TREATMENT W/COMFORT WOULD BE PROVIDED IF PT IS MADE DNR. JOHNSON INTENDS TO CALL PT'S DAUGHTER (AYO) WHO LIVES IN [place] FOR CODE STATUS INSTRUCTION. SHE STATED SHE WANTS TO "HONOR AYO AND HER NIECE'S WISHES". THIS RN IS AWAITING ADVICE AT THIS TIME.
--- NOTE | 2020-07-27 01:16 | NUR ---
CAME TO SEE PT AND ADVISED THAT STAFF CLARIFY CODE STATUS. MARIA ELENA STATED DNR W/LIMITED INTERVENTIONS BUT PT WAS MADE FULL CODE IN ER UPON DISCUSSION W/PATIENT'S . HER NIECE (JOHNSON) IS LISTED POA AND HEALTHCARE IMPLEMENTATION ANALYST UPON ADVANCE DIRECTIVE. THIS RN ATTEMPTED TO CLARIFY CODE STATUS D/T IT DETERMINING DIRECTION OF CARE. STATED PT WOULD NEED TO BE TRANSFERRED TO ICU IF PT IS TO REMAIN FULL CODE AND CURRENT TREATMENT W/COMFORT WOULD BE PROVIDED IF PT IS MADE DNR. JOHNSON INTENDS TO CALL PT'S DAUGHTER (AYO) WHO LIVES IN [place] FOR CODE STATUS INSTRUCTION. SHE STATED SHE WANTS TO "HONOR AYO AND HER AUNT'S WISHES". THIS RN IS AWAITING ADVICE AT THIS TIME.
--- NOTE | 2020-07-27 01:40 | NUR ---
SPOKE W/PT'S DAUGHTER (AYO) IN [place] IN ADDITION TO JOHNSON (POAry) WHO HAVE AGREED TO HONOR PT'S WISHED TO BE DNR W/LIMITED INTERVENTIONS INDICATED ON HER POLST. THEY VERIFY THAT PT WAS OF SOUND MIND AND JUDGEMENT WHEN MAKING THESE DECISIONS. WILL ALERT .
--- NOTE | 2020-07-27 03:40 | NUR ---
SPOKE W/, CODE STATUS CHANGED TO DNR W/LIMITED INTERVENTIONS. ATIVAN 0.5MG IV X1 RX'D FOR SYMPTOMS. WILL EVALUATE FOR EFFECT.
--- NOTE | 2020-07-27 04:02 | NUR ---
ATIVAN 0.5MG IV X1 RECIEVED. PT'S SPASTICITY IS NOTED TO BE SLIGHTLY IMRPROVED AND PT IS CALMER.
--- NOTE | 2020-07-27 04:07 | NUR ---
PT REPOSITIONED AND OBSERVED VERY CLAMMY/DIAPHORETIC. CBG CHECKED AND IS 55. PAGED AND AWAITING CALL BACK. SHE IS UNABLE TO TAKE PO AT THIS TIME D/T AMS AND ASPIRATION RISK.
--- NOTE | 2020-07-27 04:36 | NUR ---
PT MUCH CALMER FOLLOWING IV ATIVAN. RESPS REMAIN TACHY BUT ARE NOW E/U. SPO2 WAS 98% ON 3.5L SO HAS BEEN TITRATED DOWN TO 1L O2 TO MAINTAIN SPO2>90%. SHE REMAINS SLIGHTLY TWITCHY BUT SPASTICITY OF EXT'S HAS SIGNIFICANTLY IMPROVED. SHE'S NO LONGER CLENCHING JAW OR CHEWING ON HER LIPS. SHE APPEARS TO FINALLY BE SETTLED AND RESTING W/IMPROVED COMFORT.
[2020-07-27 04:50] LABS: BASOPHILS ABSOLUTE AUTO 0.05 K/mm3 (0.00-0.23); BASOPHILS PERCENT AUTO 0 % (0-2); EOSINOPHILS ABSOLUTE AUTO 0.02 K/mm3 (0.00-0.68); EOSINOPHILS PERCENT AUTO 0 % (0-6); Hematocrit 27.4 % (33.0-51.0); Hemoglobin 8.5 g/dL (11.5-16.0); IMMATURE GRAN ABSOLUTE AUTO 0.19 K/mm3 (0.00-0.10); IMMATURE GRAN PERCENT AUTO 1 % (0-1); LYMPHOCYTES ABSOLUTE AUTO 0.83 K/mm3 (0.84-5.20); LYMPHOCYTES PERCENT AUTO 5 % (21-46); MONOCYTES ABSOLUTE AUTO 1.46 K/mm3 (0.16-1.47); MONOCYTES PERCENT AUTO 8 % (4-13); Mean Corpuscular HGB 32.3 pg (26.0-34.0); Mean Platelet Volume 11.1 fL (9.1-12.4); NEUTROPHILS ABSOLUTE AUTO 15.17 K/mm3 (1.96-9.15); NEUTROPHILS PERCENT AUTO 86 % (41-73); NRBC ABSOLUTE 0.16 K/mm3 (0.00-0.02); NRBC Auto 0.9 /100 WBC (0.0-0.2); Platelet Count 251 K/mm3 (150-400); RDW Coefficient Variation 17.8 % (11.7-14.2); Red Blood Cell Count 2.63 M/mm3 (3.80-5.20); White Blood Cell Count 17.72 K/mm3 (4.00-11.30)
--- NOTE | 2020-07-27 04:58 | NUR ---
AWARE OF CBG 55. 1 AMP D50 ORDERED W/CBG'S RX'D Q1H UNTIL DAY HOSPITALIST REEVALUATION.
--- NOTE | 2020-07-27 05:26 | NUR ---
1 AMP D50 GIVEN, WILL RECHECK CBG MOMENTARILY.
[2020-07-27 05:52] LABS: Mean Corpuscular Volume 104 fL (80-100)
--- NOTE | 2020-07-27 05:57 | NUR ---
CBG NOW IMPROVED TO 132 FOLLOWING 1AMP D50. WCTM CLOSELY. MOUTH CARE PROVIDED.
[2020-07-27 06:00] LABS: Albumin, Blood 3.2 g/dL (3.4-5.0); Albumin/Globulin Ratio 1.1 (0.8-1.8); Bilirubin, Total 2.4 mg/dL (0.1-1.0); Bun/Creatinine Ratio 23.5 (12.0-20.0); Calcium, Blood 8.9 mg/dL (8.5-10.1); Creatinine, Blood 2.81 mg/dL (0.40-1.00); Globulin, Blood 2.8 g/dL (2.2-4.0); Potassium, Blood 5.5 mmol/L (3.5-5.5)
--- NOTE | 2020-07-27 06:06 | NUR ---
SUMMARY: PT ORIENTED TO SELF ONLY. SHE'S BEEN WAKEFUL TO VOICE BUT HAS DIFFICULTY TRACKING W/EYES AND HAS BEEN MOSTLY NONVERBAL T/O NOCTE. SHE INITIALLY ANSWERED SOME YES/NO Q'S BUT ACCURACY OF RESPONSES WAS QUESTIONABLE D/T AMS. SHE'S BEEN VERY RESTLESS W/INVOLUNTARY SPASTICITY AND DIFFICULTY MAKING INTENTIONAL MOVEMENTS. JAW IS OFTEN CLENCHED TIGHTLY SHUT AND SHE'S BITTEN LIPS UNTIL THEY'VE BEGUN BLEEDING, THOROUGH MOUTH CARE PROVIDED W/SUCTION SWABS. SHE REMAINS NPO FOR ASPIRATION RISK AND STAFF ARE UNABLE TO GIVE PO MEDS D/T INABILITY TO FOLLOW INSTRUCTION. NS INFUSES AT 75 ML/HR AND PT HAD 1L NS BOLUS THIS SHIFT. LACTIC ACID TRENDING DOWNWARD, NOW 4.O. ATTENDS CHANGED PRN FOR X1 URINARY INCONTINENCE, CONCENTRATED FOUL SMELLING URINE NOTED. ROCEPHIN RECIEVED IN ER FOR UTI. ALEXANDRA HELD CARDIAC MEDS D/T SEPSIS. CONT BIOX IS INTACT W/O2 TITRATED TO MAINTAIN SPO2>90%. SHE'S NOW ON 2L O2 VIA NC W/SHALLOW TACHY RESPS. SHE'S HAD PERIODS OF SOB, IRREGULAR LABORED BX AND DYSPNEA BUT RESPIRATIONS ARE MUCH CALMER AFTER ATIVAN IV X1. RT CONSULTED AND ABG COMPLETED, NO ACUTE FINDINGS. SHE'S BEEN VERY ANXIOUS, APPEARING TO HALLUCINATE AND SEEMED PAINFUL SO FENTANYL 25 MCG WAS RECIEVED FOR NO APPARENT RELIEF. X1 DOSE OF ATIVAN IV WAS MUCH MORE EFFECTIVE AND SHE APPEARS MUCH MORE COMFORTABLE AND SLEEPING AT THIS TIME. SHE WAS DIAPHORETIC W/CBG 55 THIS. 1 AMP D50 RX'D AND RECIEVED THIS AM, CBG NOW IMPROVED TO 132. VSS/AFEBRILE. CODE STATUS CHANGED TO DNR W/LIMITED INTERVENTIONS AFTER DISCUSSION W/POA (JOHNSON) AND PT'S DAUGHTER (AYO). POLST AND ADVANCED DIRECTIVES ON CHART. SEE PREVIOUS NOTES FOR DETAILS. WCTM/REPORT TO DAY RN.
--- NOTE | 2020-07-27 11:46 | NUR ---
TRANSFER TO PCU PATIENT CONTINUED TO HAVE ALTERED MENTAL STATUS, UNSTABLE CBG'S, AND DIFFICULTLY MAINTAINING OXYGEN SATURATION. CALL TO DR. LLOYD, NEW ORDERS TO TRANFER TO PCU. REPORT CALLED TO LAURA NORTON.
[2020-07-27 13:07] LABS: Source, Urine Catheter
[2020-07-27 13:23] LABS: Appearance, Urine Clear (Clear); Blood, Urine Neg (Neg); Color, Urine Amber (P-Yellow); Glucose Qualitative, Urine Neg (Neg); Ketones, Urine 1+ (Neg); Leukocyte Esterase, Urine 2+ (Neg); Nitrite, Urine Neg (Neg); Protein, Urine 3+ (Neg); Urobilinogen, Urine NORM (Normal)
[2020-07-27 14:19] LABS: Bilirubin, Urine 1+ (Neg)
[2020-07-27 14:21] LABS: Red Blood Cells, Urine 0-2 /hpf (0-2)
[2020-07-27 14:22] LABS: Bacteria Mod /hpf; Squamous Epithelial Cells Few /hpf (Few)
--- NOTE | 2020-07-27 18:28 | NUR ---
SHIFT NOTE PT WAS MOVED FROM 350 THIS AFTERNOON WITH DIAGNOSIS OF SEPSIS. PT ARRIVES SCREAMING AND FLAILING ARMS AT STAFF, APPEARS FEARFUL. PT IS CALMED BY HOLDING HER HAND AND TALKING WITH HER. ARREDONDO IS PLACED UPON ARRIVAL TO PCU. PT RECIEVED 1L NS AT ARRIVAL, D5 IS INFUSING NOW, CHEMBG MONITORED HOURLY. PT NOTED ON ARRIVAL TO HAVE BRUISING TO INNER THIGHS AND HIPS, WITH SCATTERED BRUISING T/O OTHERWISE. PER FAMILY PT HAD AN FL A FEW WEEKS AGO AND WAS PLAC[facility] STS THAT PT IS NORMALLY A/O X3. PT IS CURRENTLY RESTING WELL IN BED. NPO.
--- NOTE | 2020-07-27 19:15 | NUR ---
ASSUMED CARE RECEIVED BEDSIDE REPORT FROM ERROL SANCHEZ; PT LETHARGIC; NOT ANSWERING QUESTIONS CURRENTLY; VSS; AFIB NOTED ON TELE W/ HR 76; O2 SATS >93 ON 2L NC; ARREDONDO PATENT & DRAINING DK. COLLEEN; CALL LIGHT IN REACH; BED IN LOWEST POSITION.
--- NOTE | 2020-07-27 20:40 | NUR ---
UPDATE DEBATE DIRECTOR RINDY NOTIFIED ALEXANDRA ELI OF HOURLY BLOOD SUGAR; ORDER CHANGED TO Q4 HR CBG; THIS RN CALLED REGARDING CONSULT; DR. RODRIGUEZ STATED HE SAW PT ON MED FLOOR BEFORE TRANSFER TO PCU AND ORDERED STAT RENAL PANEL AND TO CALL HIM W/ RESULTS.
[2020-07-27 21:12] LABS: Albumin, Blood 3.2 g/dL (3.4-5.0); Anion Gap 7 mmol/L (6-16); Blood Urea Nitrogen 64 mg/dL (8-24); Bun/Creatinine Ratio 24.2 (12.0-20.0); CO2, Blood 26 mmol/L (21-32); Calcium, Blood 8.4 mg/dL (8.5-10.1); Chloride, Blood 108 mmol/L (98-108); Creatinine, Blood 2.64 mg/dL (0.40-1.00); Glomerular Filtration Rate 18 (60-); Glucose, Blood 133 mg/dL (70-99); Phosphorus, Blood 3.2 mg/dL (2.5-4.9); Sodium, Blood 141 mmol/L (136-145)
--- NOTE | 2020-07-27 21:24 | NUR ---
UPDATE CALLED TO REPORT RENAL PANEL RESULTS; NO NEW ORDERS
[2020-07-28 04:34] LABS: BASOPHILS ABSOLUTE AUTO 0.05 K/mm3 (0.00-0.23); BASOPHILS PERCENT AUTO 0 % (0-2); EOSINOPHILS ABSOLUTE AUTO 0.19 K/mm3 (0.00-0.68); EOSINOPHILS PERCENT AUTO 2 % (0-6); Hematocrit 27.6 % (33.0-51.0); Hemoglobin 8.5 g/dL (11.5-16.0); IMMATURE GRAN ABSOLUTE AUTO 0.07 K/mm3 (0.00-0.10); IMMATURE GRAN PERCENT AUTO 1 % (0-1); LYMPHOCYTES ABSOLUTE AUTO 0.48 K/mm3 (0.84-5.20); LYMPHOCYTES PERCENT AUTO 4 % (21-46); MONOCYTES ABSOLUTE AUTO 0.83 K/mm3 (0.16-1.47); MONOCYTES PERCENT AUTO 7 % (4-13); Mean Corpuscular HGB 31.8 pg (26.0-34.0); Mean Corpuscular HGB Conc 30.8 g/dL (31.5-36.5); Mean Corpuscular Volume 103 fL (80-100); Mean Platelet Volume 10.6 fL (9.1-12.4); NEUTROPHILS ABSOLUTE AUTO 9.58 K/mm3 (1.96-9.15); NEUTROPHILS PERCENT AUTO 86 % (41-73); NRBC ABSOLUTE 0.05 K/mm3 (0.00-0.02); NRBC Auto 0.4 /100 WBC (0.0-0.2); Platelet Count 233 K/mm3 (150-400); RDW Coefficient Variation 18.4 % (11.7-14.2); RDW Standard Deviation 66.4 fL (35.1-46.3); Red Blood Cell Count 2.67 M/mm3 (3.80-5.20)
[2020-07-28 04:58] LABS: Albumin, Blood 2.9 g/dL (3.4-5.0); Bilirubin, Total 1.8 mg/dL (0.1-1.0); Bun/Creatinine Ratio 24.9 (12.0-20.0); Calcium, Blood 8.2 mg/dL (8.5-10.1); Creatinine, Blood 2.37 mg/dL (0.40-1.00); Globulin, Blood 2.8 g/dL (2.2-4.0); Magnesium, Blood 2.5 mg/dL (1.6-2.4); Phosphorus, Blood 2.6 mg/dL (2.5-4.9); Potassium, Blood 3.7 mmol/L (3.5-5.5); Total Protein, Blood 5.7 g/dL (6.4-8.2)
--- NOTE | 2020-07-28 06:17 | NUR ---
SHIFT SUMMARY PT LETHARGIC W/ SPASTIC MOVEMENT OF EXTREMITIES; BECOMES ALERT AND ASKS FOR WATER SPONTANEOUSLY; VSS; AFIB NOTED ON TELE W/ HR 70'S; O2 SATS >93 ON 2L NC, LABORED IRREGULAR BREATHING; CONSULTED; SIGNIFICANT BRUISING SCATTERED T/O W/ VARYING DEGREES OF HEALING; ARREDONDO PATENT & DRAINING DK. COLLEEN; ORAL CARE ATTEMPTED, PT BITES DOWN AND NOT FOLLOWING DIRECTIONS; CALL LIGHT IN REACH; BED IN LOWEST POSITION; WILL CONTINUE TO MONITOR CLOSELY UNTIL HAND OFF TO DAY SHIFT RN.
--- NOTE | 2020-07-28 17:50 | NUR ---
SHIFT NOTE PT AWAKENS EASILY TO VERBAL STIMULI, PT IS NOW VERBAL, ANSWERS MOST QUESTIONS APPOPRIATELY IN FRAGMENTED SENTENCES. PT IS AWARE SHE IS IN THE HOSPITAL, SHE ASKS NUMEROUS TIMES TODAY "WHAT HAPPENED" PT IS EDUCATED BUT DOES SEEM TO FORGET WHAT BROUGHT HER TO THE HOSPITAL. PT HAS BEEN COOPERATIVE, NO FLAILING OF ARMS AND LEGS OR CALL INGOUT. PT HAS BEEN PROGRESSED TO FULL LIQUID DIET THAT SHE IS CURRENTLY TOLERATING WELL AT THIS TIME. PT HAS HAD ORAL CARE T/O THE DAY, SHE PREFERS TO PERFORM HER OWN ORAL CARE. D5 DRIP IS INFUSING AT THIS TIME.
[2020-07-29 04:18] LABS: BASOPHILS ABSOLUTE AUTO 0.06 K/mm3 (0.00-0.23); BASOPHILS PERCENT AUTO 1 % (0-2); EOSINOPHILS ABSOLUTE AUTO 0.37 K/mm3 (0.00-0.68); EOSINOPHILS PERCENT AUTO 5 % (0-6); Hematocrit 28.7 % (33.0-51.0); Hemoglobin 8.8 g/dL (11.5-16.0); IMMATURE GRAN ABSOLUTE AUTO 0.04 K/mm3 (0.00-0.10); IMMATURE GRAN PERCENT AUTO 1 % (0-1); LYMPHOCYTES ABSOLUTE AUTO 0.52 K/mm3 (0.84-5.20); LYMPHOCYTES PERCENT AUTO 7 % (21-46); MONOCYTES ABSOLUTE AUTO 0.66 K/mm3 (0.16-1.47); MONOCYTES PERCENT AUTO 9 % (4-13); Mean Corpuscular HGB 32.2 pg (26.0-34.0); Mean Corpuscular HGB Conc 30.7 g/dL (31.5-36.5); Mean Corpuscular Volume 105 fL (80-100); Mean Platelet Volume 10.2 fL (9.1-12.4); NEUTROPHILS ABSOLUTE AUTO 5.81 K/mm3 (1.96-9.15); NEUTROPHILS PERCENT AUTO 78 % (41-73); NRBC ABSOLUTE 0.03 K/mm3 (0.00-0.02); NRBC Auto 0.4 /100 WBC (0.0-0.2); Platelet Count 226 K/mm3 (150-400); RDW Coefficient Variation 18.9 % (11.7-14.2); Red Blood Cell Count 2.73 M/mm3 (3.80-5.20); White Blood Cell Count 7.46 K/mm3 (4.00-11.30)
[2020-07-29 04:34] LABS: Albumin, Blood 2.7 g/dL (3.4-5.0); Anion Gap 3 mmol/L (6-16); Blood Urea Nitrogen 40 mg/dL (8-24); Bun/Creatinine Ratio 24.7 (12.0-20.0); CO2, Blood 29 mmol/L (21-32); Chloride, Blood 114 mmol/L (98-108); Creatinine, Blood 1.62 mg/dL (0.40-1.00); Glomerular Filtration Rate 32 (60-); Glucose, Blood 114 mg/dL (70-99); Magnesium, Blood 2.2 mg/dL (1.6-2.4); Phosphorus, Blood 2.1 mg/dL (2.5-4.9); Potassium, Blood 3.7 mmol/L (3.5-5.5); Sodium, Blood 146 mmol/L (136-145)
--- NOTE | 2020-07-29 06:04 | NUR ---
SHIFT SUMMARY PT A&O X 4 THIS SHIFT AND TEASING W/ STAFF; SPOKE W/ SPOUSE TO GIVE UPDATE APPROXIMATELY @ 0000; VSS; AFIB NOTED ON TELE W/ HR IN 70'S; Q2 TURNS PROVIDED; MARIA ELENA PATENT & DRAINING DK.COLLEEN; Q [address]; CALL LIGHT IN REACH; BED IN LOWEST POSITION; WILL CONTINUE TO MONITOR CLOSELY UNTIL HAND OFF TO DAY SHIFT RN.
--- NOTE | 2020-07-29 18:47 | NUR ---
SHIFT SUMMARY PATIENT ALERT, ANSWERS QUESTIONS IN FULL SENTENCES. NC 2.5 LITERS SP02 100%. VSS. TOLERATING FULL LIQUID DIET WELL. PERFORMED EXERCISES WITH PT TODAY, TOLERATED WELL.C/O BILATERAL HIP PAIN, TREATED WITH FENTANYL. VISITED THIS AFTERNOON. TRACE EDEMA NOTED THROUGHOUT. BLOOD SUGAR CONTROL WNL, D5 INFUSING. ARREDONDO DRAINING TO GRAVITY. RESTING IN BED. PROLONGED EXPIRATORY WHEEZE NOTED, RT ADMINISTERED BREATHING TREATMENT.
[2020-07-30 04:22] LABS: Hematocrit 27.1 % (33.0-51.0); Hemoglobin 8.4 g/dL (11.5-16.0); Mean Corpuscular HGB 31.9 pg (26.0-34.0); Mean Corpuscular Volume 103 fL (80-100); Mean Platelet Volume 10.5 fL (9.1-12.4); Platelet Count 191 K/mm3 (150-400); RDW Coefficient Variation 19.1 % (11.7-14.2); RDW Standard Deviation 69.2 fL (35.1-46.3); Red Blood Cell Count 2.63 M/mm3 (3.80-5.20); White Blood Cell Count 5.43 K/mm3 (4.00-11.30)
[2020-07-30 04:53] LABS: Magnesium, Blood 1.9 mg/dL (1.6-2.4)
[2020-07-30 04:54] LABS: Albumin, Blood 2.8 g/dL (3.4-5.0); Bilirubin, Total 1.2 mg/dL (0.1-1.0); Bun/Creatinine Ratio 24.2 (12.0-20.0); Calcium, Blood 7.7 mg/dL (8.5-10.1); Creatinine, Blood 1.24 mg/dL (0.40-1.00); Globulin, Blood 2.8 g/dL (2.2-4.0); Phosphorus, Blood 2.4 mg/dL (2.5-4.9); Potassium, Blood 4.1 mmol/L (3.5-5.5); Total Protein, Blood 5.6 g/dL (6.4-8.2)
[2020-07-30 05:24] LABS: BASOPHILS ABSOLUTE MAN 0.05 K/mm3 (0.00-0.23); BASOPHILS PERCENT MAN 1 % (0-2); EOSINOPHILS PERCENT MAN 0 % (0-6); LYMPHOCYTES ABSOLUTE MAN 0.16 K/mm3 (0.84-5.20); LYMPHOCYTES PERCENT MAN 3 % (21-46); MONOCYTES PERCENT MAN 2 % (4-13); SEG NEUTROPHILS PERCENT MAN 94 % (41-73); TOTAL CELLS COUNTED 100
--- NOTE | 2020-07-30 05:36 | NUR ---
ASSUMED CARE OF PATIENT AT APPROXIMETLY 1900. PATIENT ALERT AND ORIENTED AND VERY PLEASANT WITH STAFF. FOLLOWING COMMANDS WITHOUT ISSUE.STATED SHE FEELS HER SOB IS INCREASING AND STILL REQUESTED BREATHING TREATMENT X2 AND NOTICABLE EXPIRATORY WHEEZES BILATERALLY. ON HOME 02 DOSE OF 2LNC. IV SOLUMEDROL GIVEN Q6H. Harley CATH PATENT AND DRAINING YELLOW URINE. BEDPAN USED FOR BOWEL MOVEMENT AT START OF SHIFT. D5W STILL INFUSING PER ORDER BUT PATIENT STATED SHE IS FEELING PUFFY IN HER HANDS. Q2H TURNS CONTINUE. SCATTERED ECCHYMOSIS NOTED. PATIENT REMAINS IN AFIB WITH RATE IN 50'S-70S. NO ACUTE ISSUES NOTED. WILL CONTINUE TO MONITOR.
--- NOTE | 2020-07-30 06:35 | NUR ---
DR. RODRIGUEZ BEDSIDE; ORDERS TO D/C D5W AND GIVE 20 LASIX IV NOW.
--- NOTE | 2020-07-30 18:00 | NUR ---
STUDENT NURSE RODRIGUEZ PROVIDED CARE FOR PT DURING SHIFT. STUDENT ASSESMENT REVIEWED AND FINDINGS AGREED BY THIS RN. CHARTING REVIEWED BY THIS RN.
--- NOTE | 2020-07-30 18:16 | NUR ---
SN WORKING WITH DANIEL Box RN. ASSUMED CARE OF PATIENT AT APPROXIMETLY 0700. PATIENT IS ALERT AND ORIENTED X4. PT IS FEELING SHORT OF BREATH WITH EXERTION AND HAS AUDITORY WHEEZES. O2 SATURATION AREA >95% ON 2L O2 NC. RT CAME AND DID A BREATHING TREATMENT WITH HER. PT CAME DOWN AND WORKED WITH HER WELL. TELE AND HER HR HAS BEEN IN AFIB IN THE 70'S AND 80'S. WE GOT THE PATIENT UP WITH 2 PERSON ASSIST AND THE PATIENT BECAME VERY WEAK AND SHORT OF BREATH. SHE HAD ONE SMALL, LOOSE BOWEL MOVEMENT. ARREDONDO CATH IN PLACE. SCATTERED ECCHYMOSIS IN VARIES STAGES OF HEALING. PATIENT IS RESTING IN BED ON 2L OF O2 NC, CALL LIGHT IN REACH, AND BED IN THE LOWEST POSITON.
--- NOTE | 2020-07-31 03:17 | NUR ---
ASSUMED CARE OF PATIENT AT START OF SHIFT, APPROXIMETLY 1900. PATIENT FORGETFUL AT TIMES BUT OTHERWISE A&OX4. STILL WITH NOTICABLE WEAKNESS COMPARED TO BASELINE PER PATIENT REPORT. VSS. ON HOME DOSE OF 2.5L NC. EDWARDS AND WHEEZING APPEAR MUCH IMPROVED FROM PREVIOUS SHIFT. CONTROLLED AFIB ON THE MONITOR. ARREDONDO CATH PATENT AND DRAINING CLEAR YELLOW URINE. GOT UP TO CHAIR BEFORE BED TO STRETCH WITH 2 PERSON ASSIST. PAIN TO RIGHT HIP WORSENED AFTER A DAY FULL OF MORE EXCERSISE THAN USUAL. FENT X2 KEEPING PAIN AT TOLERABLE LEVEL. CONTINUE Q2H TURNS. WILL CONTINUE TO MONITOR.
[2020-07-31 04:05] LABS: Hematocrit 25.7 % (33.0-51.0); Hemoglobin 8.1 g/dL (11.5-16.0); Mean Corpuscular HGB 32.4 pg (26.0-34.0); Mean Corpuscular HGB Conc 31.5 g/dL (31.5-36.5); Mean Corpuscular Volume 103 fL (80-100); Mean Platelet Volume 10.6 fL (9.1-12.4); Platelet Count 179 K/mm3 (150-400); RDW Coefficient Variation 19.2 % (11.7-14.2); RDW Standard Deviation 70.4 fL (35.1-46.3); White Blood Cell Count 7.72 K/mm3 (4.00-11.30)
[2020-07-31 04:37] LABS: Albumin, Blood 2.8 g/dL (3.4-5.0); Bilirubin, Total 0.9 mg/dL (0.1-1.0); Bun/Creatinine Ratio 22.6 (12.0-20.0); Calcium, Blood 7.5 mg/dL (8.5-10.1); Creatinine, Blood 1.24 mg/dL (0.40-1.00); Globulin, Blood 2.8 g/dL (2.2-4.0); Percent Saturation 11.3 % (15.0-50.0); Total Protein, Blood 5.6 g/dL (6.4-8.2)
--- NOTE | 2020-07-31 17:34 | NUR ---
SHIFT SUMMARY; ASSUMED CARE AT 0700. RESTING ON GURNEY A/A/OX4. ARREDONDO CATH IN PLACE DRAINING CLEAR YELLOW URINE. 2L 02 VIA NC, VSS. MULTIPLE BRUISES ON ARMS AND LEGS IN MULTIPLE STAGES OF HEALING. REPOSITIONS SELF IN BED NEEDED. SBA TO CHAIR AT BEDSIDE FOR MEALS. VISITOR AT BEDSIDE IN AFTERNOON. BEDBATH AND GOWN CHANGE DURING SHIFT WITH ORAL CARE. NO ACUTE MEDICAL CHANGES DURING SHIFT. WILL CONTINUE TO MONITOR AND TREAT UNTIL CHANGE OF SHIFT.
[2020-08-01 04:13] LABS: Albumin, Blood 2.8 g/dL (3.4-5.0); Bilirubin, Direct 0.5 mg/dL (0.0-0.3); Bilirubin, Indirect 0.5 mg/dL (0.1-0.7); Bun/Creatinine Ratio 22.3 (12.0-20.0); Calcium, Blood 7.8 mg/dL (8.5-10.1); Creatinine, Blood 1.21 mg/dL (0.40-1.00); Globulin, Blood 2.9 g/dL (2.2-4.0); Magnesium, Blood 1.4 mg/dL (1.6-2.4); Phosphorus, Blood 2.2 mg/dL (2.5-4.9); Potassium, Blood 4.1 mmol/L (3.5-5.5); Total Protein, Blood 5.7 g/dL (6.4-8.2)
--- NOTE | 2020-08-01 04:36 | NUR ---
SHIFT SUMMARY PATIENT SEEN AT START OF SHIFT RESTING IN BED COMFORTABLY. NEURO STATUS MUCH IMPROVED. STILL WITH SOME BLE WEAKNESS BUT ALERT AND ORIENTED X4. ON HOME DOSE OF 2LNC SATING MID 90'S. EDWARDS NOTED. VSS AND REMAINS IN CONTROLLED AFIB IN 60'S. ARREDONDO PATENT DRAINING YELLOW URINE. BM AT START OF SHIFT. APPETITE MUCH IMPROVED. MENTIONED TO RN ABOUT RIGHT HIP PAIN AND RECENT FALL AND WILL SUGGEST POSSIBLE XRAY TO DAYSHIFT TEAM. WITH FENTANYL DISCONTINUED AND PATIENT REFUSING TYLENOL SO TRAMADOL ADDED FOR PAIN IT GOT WORSE THROUGHOUT SHIFT TO NO LONGER TOLERABLE LEVEL. NO OTHER ACUTE CONCERNS AT THIS TIME. WILL CONTINUE TO MONITOR.
--- NOTE | 2020-08-01 04:47 | NUR ---
SPOKE WITH HOSPITALIST HEAD GOLF COACH ABOUT PATIENT INCREASING PAIN LEVEL TO RIGHT HIP. HAD PREVIOUSLY REFUSED PRN TYLENOL ALREADY ON LIST AND STATED AT TOLERABLE LEVEL. GOT INCREASING MORE UNTOLERABLE NIGHT WENT ON TO 9/10 PAIN TO HIP. TRAMADOL 50MG Q6H ADDED TO PRN MED LIST.
--- NOTE | 2020-08-01 10:49 | NUR ---
AM NOTED ASSUMED CARE OF PATIENT AT APPROX 0700. PT RESTING IN BED, UP 2 PERSON ASSIST WITH WALKER AND GAITBELT TO BSC. PT A&Ox4; CALM AND COOPERATIVE WITH CARE. PT ON 2.5L O2 VIA NC, LS CLEAR, PT REPORTS SOB WITH EXERTION, BREATHING EVEN AND UNLABORED. HR SOUND IRREGULAR AND MURMUR NOTED; BP AND HR WNL; PT DENIES PAIN, CHEST PAIN, NAUSE AND DIZZINESS. BS HYPOTENSIVE x4 QUADRANTS. SCATTERED BRUISING; RIGHT SIDE/HIP IS THE WORST. VSS. PT GOT UP TO BSC WITH 2 PERSON ASSIST, A PRETURSION FROM THE RECTUM NOTED, BLEEDING NOTED ON RECTUM; STOOL DARK GREEN/BROWN IN COLOR. NOTIFIED DR MCCRAY. WILL CONTINUE TO MONITOR
--- NOTE | 2020-08-01 17:25 | NUR ---
SHIFT SUMMARY PT A&Ox4; FORGETFUL AT TIMES; CALM AND COOPERATIVE WITH CARE. PT RESTING IN BED FOR MAJOIRTY OF SHIFT, UP TO BSC WITH 2 PERSON ASSIST. PT REPORTS PAINS TO RIGHT HIP AND THIGH; MEDICATED x1 WTIH TRAMADOL WITH POSITIVE RESULTS. PT TO XRAY THIS AFTERNOON, DR MCCRAY NOTIFIED OF RESULTS, NO NEW ORDERS. PT SOB WITH EXERTION, SPO2 >90% ON 2-2.5L O2 VIA NC. PT DENIES CHEST PAIN, NAUSEA AND DIZZINESS. VSS. NO OTHER ACUTE CHANGES NTOED. WILL CONTINUE TO MONITOR UNTIL REPORT GIVEN TO ONCOMING RN.
--- NOTE | 2020-08-01 22:23 | NUR ---
PATIENT ALERT AND ORIENTED X4, COOPERATIVE WITH CARE, CAN BE FORGETFULL AT TIMES. PATIENT STATES SHE IS NOT IN PAIN. PATIENT ASSISTS WITH TURNING. BRUISING NOTICED THROUGHOUT ESPECIALLY RIGHT HIP AND RIGHT INNER THIGH. PATIENT WENT TO CT. BRIEF CHANGED AND MEPALEX APPLIED TO REDENNED AREA ON COCCYX. ARREDONDO DRAINING. 02 SATS >95% ON 2L VIA NC WHICH IS BASELINE. REPORT CALLED TO ERROL MCNEAL. PATIENT TRANSFERRED TO ROOM 302 @2205.
--- NOTE | 2020-08-01 22:52 | NUR ---
6082 REPORT RECEIVED FROM ERROL WRIGHT; PT RECEIVED INTO ROOM 302 PER BED FROM PCU-4; ALERT AND ORIENTED X 4; BED ALARM APPLIED FOR SAFETY.
--- NOTE | 2020-08-02 03:51 | NUR ---
SHIFT SUMMARY: 89 Y/O FEMALE RESTED COMFORTABLY ALL SHIFT; PTS RIGHT HIP/GROIN BRUISING NOTED; PT ALERT AND ORIENTED X 4 AND ABLE TO MAKE ALL NEEDS KNOWN; PT C/O RIGHT HIP PAIN RATED 7/10 WITH TRAMADOL 50MG PO X 1 GIVEN WITH RELIEF FELT; ARREDONDO DRAINING CLEAR YELLOW FLUID; BED ALARM APPLIED FOR SAFETY; BED LOW POSITION WITH CALL LIGHT AT SIDE.
[2020-08-02 05:06] LABS: Hematocrit 28.5 % (33.0-51.0); Hemoglobin 8.9 g/dL (11.5-16.0); Mean Corpuscular HGB 31.7 pg (26.0-34.0); Mean Corpuscular HGB Conc 31.2 g/dL (31.5-36.5); Mean Corpuscular Volume 101 fL (80-100); Mean Platelet Volume 10.6 fL (9.1-12.4); Platelet Count 170 K/mm3 (150-400); RDW Coefficient Variation 18.8 % (11.7-14.2); RDW Standard Deviation 69.2 fL (35.1-46.3); Red Blood Cell Count 2.81 M/mm3 (3.80-5.20); White Blood Cell Count 6.86 K/mm3 (4.00-11.30)
[2020-08-02 05:35] LABS: Albumin, Blood 2.8 g/dL (3.4-5.0); Albumin/Globulin Ratio 0.9 (0.8-1.8); Bilirubin, Total 1.1 mg/dL (0.1-1.0); Bun/Creatinine Ratio 20.5 (12.0-20.0); Calcium, Blood 7.9 mg/dL (8.5-10.1); Creatinine, Blood 1.17 mg/dL (0.40-1.00); Globulin, Blood 3.1 g/dL (2.2-4.0); Potassium, Blood 4.6 mmol/L (3.5-5.5); Total Protein, Blood 5.9 g/dL (6.4-8.2)
--- NOTE | 2020-08-02 17:56 | NUR ---
Met with pt today; she talked mostly about her home life today, and I listened. Pt tells this RN she is still having some pain in her R hip, b tut the current dose of tramadol is working, as she states a 1/2 a tylenol to do nothing. She states she and her have had conversations about moving into assisted living or such, but states they just can't bear the idea, so they will just "Take care of each other". She plans to have PT in home via upon discharge, likely tomorrow, along with equipment needs.
--- NOTE | 2020-08-02 18:19 | NUR ---
SHIFT SUMMARY PT HAS BEEN SLEEPING A LOT OF THE SHIFT. MEDICATED FOR RIGHT HIP PAIN X1 THIS SHIFT. PT DOING EXERCISES IN BED BUT DECLINED TO GET OOB. PT RECEIVED IV LASIX EARLY THIS AFTERNOON AND REPORTS FEELING LIKE SHE CAN BREATHE BETTER SINCE GIVEN THE LASIX. NO ACUTE CHANGES AT THIS TIME. WILL CONTINUE TO MONITOR AND REPORT TO ONCOMING RN.
[2020-08-03 05:53] LABS: Hematocrit 28.1 % (33.0-51.0); Mean Corpuscular Volume 100 fL (80-100); Mean Platelet Volume 10.8 fL (9.1-12.4); Platelet Count 133 K/mm3 (150-400); RDW Coefficient Variation 18.8 % (11.7-14.2); RDW Standard Deviation 68.5 fL (35.1-46.3); Red Blood Cell Count 2.81 M/mm3 (3.80-5.20); White Blood Cell Count 6.28 K/mm3 (4.00-11.30)
[2020-08-03 06:10] LABS: Albumin, Blood 2.7 g/dL (3.4-5.0); Anion Gap 6 mmol/L (6-16); Blood Urea Nitrogen 21 mg/dL (8-24); Bun/Creatinine Ratio 20.2 (12.0-20.0); CO2, Blood 24 mmol/L (21-32); Chloride, Blood 104 mmol/L (98-108); Creatinine, Blood 1.04 mg/dL (0.40-1.00); Glomerular Filtration Rate 53 (60-); Glucose, Blood 119 mg/dL (70-99); Magnesium, Blood 1.6 mg/dL (1.6-2.4); Phosphorus, Blood 2.7 mg/dL (2.5-4.9); Potassium, Blood 4.6 mmol/L (3.5-5.5); Sodium, Blood 134 mmol/L (136-145)
[2020-08-03] MEDS ORDERED: Vitamin B-Comp1 EACH PO (15:06)
[2020-08-03] MEDS ORDERED: ASPI81CH PO (15:06)
[2020-08-03] MEDS ORDERED: CLOP75 PO (15:07)
[2020-08-03] MEDS ORDERED: BISA10S PR (15:07)
[2020-08-03] MEDS ORDERED: PANT20 PO (15:07)
[2020-08-03] MEDS ORDERED: TAMS.4ER PO (15:07)
[2020-08-03] MEDS ORDERED: TRAM50 PO (15:08)
[2020-08-03 16:45] LABS: Influenza A, PCR NEGATIVE (NEGATIVE); Influenza B, PCR NEGATIVE (NEGATIVE); Resp Syncytial Virus, PCR NEGATIVE (NEGATIVE); SARS-Cov-2 (COVID-19) PCR, MMC NEGATIVE (NEGATIVE)
--- NOTE | 2020-08-03 18:37 | NUR ---
DISCHARGE PT DISCHARGED TO [facility]. THIS RN CALLED REPORT TO ERROL AGUILERA. IV REMOVED WITHOUT DIFFICULTY. PT TRANSFERRED TO [facility] VIA WHEELCHAIR VAN.
== END 2020-08-03 16:58 | DRG 871 ==
LOC: ER 13:31 → MEDS 18:12 → PCU 18:12 → ERHOLD 18:12 → MEDS 20:27 → PCU 07-27 11:39 → MEDS 08-01 22:16
PROVIDERS: Internal Medicine; Internal Medicine Nephrology; Nurse Practitioner Acute Care; Student in an Organized Health Care Education/Training Program; ADMIT Internal Medicine
DX: A41.9 Sepsis, unspecified organism (principal); G93.41 Metabolic encephalopathy; I50.33 Acute on chronic diastolic (congestive) heart failure; I13.0 Hypertensive heart and chronic kidney disease with heart failure and stage 1 through stage 4 chronic kidney disease, or unspecified chronic kidney disease; G11.9 Hereditary ataxia, unspecified; N39.0 Urinary tract infection, site not specified; N17.9 Acute kidney failure, unspecified; E87.2 Acidosis; I48.20 Chronic atrial fibrillation, unspecified; E87.0 Hyperosmolality and hypernatremia; J44.1 Chronic obstructive pulmonary disease with (acute) exacerbation; J96.11 Chronic respiratory failure with hypoxia; Z66 Do not resuscitate; Z20.822 Contact with and (suspected) exposure to COVID-19; M48.00 Spinal stenosis, site unspecified; E83.39 Other disorders of phosphorus metabolism; N18.30 Chronic kidney disease, stage 3 unspecified; E11.22 Type 2 diabetes mellitus with diabetic chronic kidney disease; F31.9 Bipolar disorder, unspecified; E87.5 Hyperkalemia; I27.20 Pulmonary hypertension, unspecified; K21.9 Gastro-esophageal reflux disease without esophagitis; I35.0 Nonrheumatic aortic (valve) stenosis; R65.20 Severe sepsis without septic shock; J44.9 Chronic obstructive pulmonary disease, unspecified; K12.30 Oral mucositis (ulcerative), unspecified; I50.812 Chronic right heart failure; I25.10 Atherosclerotic heart disease of native coronary artery without angina pectoris; E83.42 Hypomagnesemia; E88.09 Other disorders of plasma-protein metabolism, not elsewhere classified; G89.4 Chronic pain syndrome; M25.551 Pain in right hip; M81.0 Age-related osteoporosis without current pathological fracture; K76.1 Chronic passive congestion of liver; E21.3 Hyperparathyroidism, unspecified; E86.0 Dehydration; Z96.653 Presence of artificial knee joint, bilateral; Z91.81 History of falling; Z99.81 Dependence on supplemental oxygen; I25.2 Old myocardial infarction; Z98.890 Other specified postprocedural states; Z86.711 Personal history of pulmonary embolism; Z86.718 Personal history of other venous thrombosis and embolism; Z86.73 Personal history of transient ischemic attack (TIA), and cerebral infarction without residual deficits; Z90.710 Acquired absence of both cervix and uterus; Z90.49 Acquired absence of other specified parts of digestive tract; Z88.8 Allergy status to other drugs, medicaments and biological substances; Z79.899 Other long term (current) drug therapy
CPT/HCPCS: 0241U; 36415; 36600; 51701; 51702; 71045; 73502; 73552; 73700; 76705; 76770; 80047; 80053; 80069; 81001; 82248; 82728; 82803; 82947; 83540; 83550; 83605; 83690; 83735; 83880; 84100; 84145; 84484; 85014; 85025; 85027; 87040; 87077; 87086; 87186; 93005; 93010; 94640; 94760; 94762; 96365; 97110; 97112; 97116; 97162; 97530; 99285-25; A9270; A9270-GY; C9113; J0696; J0881; J1644; J1650; J1940; J2060; J2916; J2920; J3010; J3475; J7030; J7042; J7060; J7070; J7120

== ENCOUNTER 2020-09-02 05:19 | Emergency (ER) | payer OTHER, MEDICARE ==
[~2020-09-02] VITALS: Ht 177.8 cm; Wt 87.5 kg
[~2020-09-02 05:19] MED LIST changes: +ALBU90OI INH; +BUPROPION HCL100 MG PO; +ESCI10 PO; +FERSU300 PO; +NITR.4SL SL; +PANT20 PO; +PRAZ1 PO; +SYMBICORT 80-10.2 GM INH; +TAMS.4ER PO; +TRAM50 PO; +Vitamin B-Comp1 EACH PO
[2020-09-02] MEDS ORDERED: CLOP75 PO (05:34)
[2020-09-02] MEDS ORDERED: TAMS.4ER PO (05:35)
[2020-09-02] MEDS ORDERED: OXYC5 PO (05:38)
[2020-09-02] MEDS ORDERED: Acetaminophen650 M1 PO (05:41)
[2020-09-02] MEDS ORDERED: NITR.4SL SL (05:42)
[2020-09-02] MEDS ORDERED: ONDA4ODT MM (05:43)
[2020-09-02 06:33] LABS: Source, Urine Clean Catch
[2020-09-02 06:36] LABS: Bilirubin, Urine Neg (Neg); Blood, Urine Neg (Neg); Glucose Qualitative, Urine Neg (Neg); Ketones, Urine Neg (Neg); Leukocyte Esterase, Urine Neg (Neg); Nitrite, Urine Neg (Neg); Protein, Urine 2+ (Neg); Urobilinogen, Urine NORM (Normal)
[2020-09-02 06:45] LABS: Appearance, Urine Clear (Clear); Color, Urine Yellow (P-Yellow)
[2020-09-02 06:46] LABS: Bacteria Rare /hpf; Hyaline Casts 0-2 /lpf (0-2); Red Blood Cells, Urine 0-2 /hpf (0-2); Squamous Epithelial Cells Few /hpf (Few); Transitional Epithelial Cells Few /hpf (0-Rare); White Blood Cells, Urine 0-2 /hpf (0-5)
[2020-09-02 07:05] LABS: BASOPHILS ABSOLUTE AUTO 0.05 K/mm3 (0.00-0.23); BASOPHILS PERCENT AUTO 1 % (0-2); EOSINOPHILS ABSOLUTE AUTO 0.12 K/mm3 (0.00-0.68); EOSINOPHILS PERCENT AUTO 3 % (0-6); Hematocrit 28.1 % (33.0-51.0); Hemoglobin 9.1 g/dL (11.5-16.0); IMMATURE GRAN ABSOLUTE AUTO 0.02 K/mm3 (0.00-0.10); IMMATURE GRAN PERCENT AUTO 0 % (0-1); LYMPHOCYTES ABSOLUTE AUTO 0.71 K/mm3 (0.84-5.20); LYMPHOCYTES PERCENT AUTO 15 % (21-46); MONOCYTES ABSOLUTE AUTO 0.55 K/mm3 (0.16-1.47); MONOCYTES PERCENT AUTO 11 % (4-13); Mean Corpuscular HGB 30.8 pg (26.0-34.0); Mean Corpuscular HGB Conc 32.4 g/dL (31.5-36.5); Mean Corpuscular Volume 95 fL (80-100); Mean Platelet Volume 10.5 fL (9.1-12.4); NEUTROPHILS ABSOLUTE AUTO 3.36 K/mm3 (1.96-9.15); NEUTROPHILS PERCENT AUTO 70 % (41-73); NRBC ABSOLUTE 0.03 K/mm3 (0.00-0.02); NRBC Auto 0.6 /100 WBC (0.0-0.2); Platelet Count 134 K/mm3 (150-400); RDW Coefficient Variation 15.8 % (11.7-14.2); RDW Standard Deviation 54.4 fL (35.1-46.3); Red Blood Cell Count 2.95 M/mm3 (3.80-5.20); White Blood Cell Count 4.81 K/mm3 (4.00-11.30)
[2020-09-02 07:24] LABS: Bun/Creatinine Ratio 12.9 (12.0-20.0); Calcium, Blood 8.7 mg/dL (8.5-10.1); Creatinine, Blood 2.01 mg/dL (0.40-1.00); Potassium, Blood 4.2 mmol/L (3.5-5.5)
== END 2020-09-02 10:15 | disposition home or self-care (01) ==
LOC: ER 05:19
PROVIDERS: Emergency Medicine
DX: I13.0 Hypertensive heart and chronic kidney disease with heart failure and stage 1 through stage 4 chronic kidney disease, or unspecified chronic kidney disease (principal); E11.22 Type 2 diabetes mellitus with diabetic chronic kidney disease; N18.30 Chronic kidney disease, stage 3 unspecified; I50.9 Heart failure, unspecified; J44.9 Chronic obstructive pulmonary disease, unspecified; Z86.73 Personal history of transient ischemic attack (TIA), and cerebral infarction without residual deficits; Z79.82 Long term (current) use of aspirin; Z79.02 Long term (current) use of antithrombotics/antiplatelets; Z79.899 Other long term (current) drug therapy
CPT/HCPCS: 80048; 81001; 85025; 99285

== ENCOUNTER 2020-09-25 08:33 | Observation (INO) | payer OTHER, MEDICARE ==
[~2020-09-25] VITALS: Ht 167.6 cm; Wt 61.2 kg
[~2020-09-25 08:33] MED LIST changes: +Acetaminophen650 M1 PO; +ONDA4ODT MM
[2020-09-25 10:52] LABS: Source, Urine Clean Catch
[2020-09-25 11:13] LABS: BASOPHILS ABSOLUTE AUTO 0.05 K/mm3 (0.00-0.23); BASOPHILS PERCENT AUTO 1 % (0-2); EOSINOPHILS PERCENT AUTO 1 % (0-6); Hematocrit 32.9 % (33.0-51.0); Hemoglobin 10.9 g/dL (11.5-16.0); IMMATURE GRAN ABSOLUTE AUTO 0.04 K/mm3 (0.00-0.10); IMMATURE GRAN PERCENT AUTO 0 % (0-1); LYMPHOCYTES ABSOLUTE AUTO 0.57 K/mm3 (0.84-5.20); LYMPHOCYTES PERCENT AUTO 6 % (21-46); MONOCYTES PERCENT AUTO 7 % (4-13); Mean Corpuscular HGB 30.5 pg (26.0-34.0); Mean Corpuscular HGB Conc 33.1 g/dL (31.5-36.5); Mean Corpuscular Volume 92 fL (80-100); NEUTROPHILS ABSOLUTE AUTO 8.42 K/mm3 (1.96-9.15); NEUTROPHILS PERCENT AUTO 85 % (41-73); Platelet Count 150 K/mm3 (150-400); RDW Coefficient Variation 17.9 % (11.7-14.2); RDW Standard Deviation 56.4 fL (35.1-46.3); Red Blood Cell Count 3.57 M/mm3 (3.80-5.20); White Blood Cell Count 9.88 K/mm3 (4.00-11.30)
[2020-09-25 11:14] LABS: Bilirubin, Urine Neg (Neg); Blood, Urine 1+ (Neg); Glucose Qualitative, Urine Neg (Neg); Ketones, Urine Neg (Neg); Leukocyte Esterase, Urine Neg (Neg); Nitrite, Urine Neg (Neg); Protein, Urine 3+ (Neg); Specific Gravity, Urine 1.005 (1.003-1.022); Urobilinogen, Urine NORM (Normal)
[2020-09-25 11:30] LABS: Albumin, Blood 3.2 g/dL (3.4-5.0); Bilirubin, Total 2.1 mg/dL (0.1-1.0); Bun/Creatinine Ratio 16.4 (12.0-20.0); Calcium, Blood 8.8 mg/dL (8.5-10.1); Creatinine, Blood 1.71 mg/dL (0.40-1.00); Globulin, Blood 3.3 g/dL (2.2-4.0); Potassium, Blood 4.2 mmol/L (3.5-5.5); Total Protein, Blood 6.5 g/dL (6.4-8.2)
[2020-09-25 11:47] LABS: Appearance, Urine Clear (Clear); Color, Urine Yellow (P-Yellow)
[2020-09-25 11:48] LABS: Bacteria Rare /hpf; Red Blood Cells, Urine 0-2 /hpf (0-2); Renal Epithelial Rare /hpf (0-Rare); Squamous Epithelial Cells Not Seen /hpf (Few); Transitional Epithelial Cells Rare /hpf (0-Rare); White Blood Cells, Urine 0-2 /hpf (0-5)
[2020-09-25 15:34] LABS: Creatine Kinase MB 2.9 ng/mL (0.0-3.6); Creatine Kinase MB Index 1.3 (0.0-4.0)
--- NOTE | 2020-09-25 19:53 | NUR ---
ADMITTED 89 YR OLD FEMALE FROM THE ED WITH DX OF AMBULATORY FALL WITH LEFT HIP PAIN. POSSIBLE METABOLIC ENCEPHALOPATHY. O2 PER NC, EASILY SOB WITH LITTLE EXERTION. CALL LIGHT IN REACH. HOB ELEVATED FOR COMFORT.
--- NOTE | 2020-09-25 20:13 | NUR ---
RT NOTIFIED OF PT ON CONT PULSE OX. O2 CURRENTLY AT 3L/NC PER MIN. HOB AT 30 DEGREES. CALL LIGHT IN REACH
[2020-09-25 20:39] LABS: Adenovirus F 40/41 Not Detected (NOT DETECT); Astrovirus Not Detected (NOT DETECT); Campylobacter Sp Not Detected (NOT DETECT); Cryptosporidium Not Detected (NOT DETECT); Cyclospora Cayetanensis Not Detected (NOT DETECT); E. Coli O157 Not Detected (NOT DETECT); Entamoeba Histolytica Not Detected (NOT DETECT); Enteroaggregative E. coli-EAEC Not Detected (NOT DETECT); Enteropathogenic E. coli-EPEC Not Detected (NOT DETECT); Enterotoxigenic E. coli-ETEC Not Detected (NOT DETECT); Giardia Lamblia Not Detected (NOT DETECT); Norovirus GI/GII Not Detected (NOT DETECT); Plesiomonas Shigelloides Not Detected (NOT DETECT); Rotavirus A Not Detected (NOT DETECT); Salmonella Sp Not Detected (NOT DETECT); Sapovirus Not Detected (NOT DETECT); Shiga Toxin-prod E. coli-STEC Not Detected (NOT DETECT); Shigella/Enteroin E. coli-EIEC Not Detected (NOT DETECT); Vibrio Cholerae Not Detected (NOT DETECT); Vibrio Sp Not Detected (NOT DETECT); Yersinia Enterocolitica Not Detected (NOT DETECT)
--- NOTE | 2020-09-25 23:17 | NUR ---
EAR PROBE PALCED BY RT DIGITAL PROBES INEFFECTIVE. SATS AT 94% WITH O2 AT 3-4L/MIN. PLACED ON CONTACT PRECAUTIONS FOR C-DIFF. IVF OF NS AT 100 ML/HR. HOB REMAINS ELEVATED FOR COMFORT. MEDICATED FOR REST. CALL LIGHT IN REACH
--- NOTE | 2020-09-26 03:13 | NUR ---
SOUND CONTROLLER SUMMARY WAS ADMITTED EARLIER IN THE SHIFT WITH DX OF METABOLIC ENCEPHALOPATHY, POST FALL AT HOME. THEN LATER PLACED ON ISOLATION FOR C DIFF. O2 PER NC AT 3-4L/MIN WITH HOB ELEVATED ABOUT 30-40 DEGREES. INTERMITTENT CALLING OUT/TALKING TO SELF AFTER MEDICATED FOR SLEEP. CURRENTLY WATCHING TV WITH OUT APPARENT DISTRESS. CALL LIGHT IN REACH
[2020-09-26 05:16] LABS: BASOPHILS ABSOLUTE AUTO 0.07 K/mm3 (0.00-0.23); BASOPHILS PERCENT AUTO 1 % (0-2); EOSINOPHILS ABSOLUTE AUTO 0.15 K/mm3 (0.00-0.68); EOSINOPHILS PERCENT AUTO 2 % (0-6); Hematocrit 32.3 % (33.0-51.0); Hemoglobin 10.5 g/dL (11.5-16.0); IMMATURE GRAN ABSOLUTE AUTO 0.02 K/mm3 (0.00-0.10); IMMATURE GRAN PERCENT AUTO 0 % (0-1); LYMPHOCYTES ABSOLUTE AUTO 0.67 K/mm3 (0.84-5.20); LYMPHOCYTES PERCENT AUTO 7 % (21-46); MONOCYTES ABSOLUTE AUTO 0.66 K/mm3 (0.16-1.47); MONOCYTES PERCENT AUTO 7 % (4-13); Mean Corpuscular HGB 30.3 pg (26.0-34.0); Mean Corpuscular HGB Conc 32.5 g/dL (31.5-36.5); Mean Corpuscular Volume 93 fL (80-100); Mean Platelet Volume 11.2 fL (9.1-12.4); NEUTROPHILS ABSOLUTE AUTO 7.91 K/mm3 (1.96-9.15); NEUTROPHILS PERCENT AUTO 83 % (41-73); Platelet Count 174 K/mm3 (150-400); RDW Coefficient Variation 17.9 % (11.7-14.2); RDW Standard Deviation 56.7 fL (35.1-46.3); Red Blood Cell Count 3.47 M/mm3 (3.80-5.20); White Blood Cell Count 9.48 K/mm3 (4.00-11.30)
[2020-09-26 05:37] LABS: Bun/Creatinine Ratio 17.1 (12.0-20.0); Calcium, Blood 8.5 mg/dL (8.5-10.1); Creatinine, Blood 1.52 mg/dL (0.40-1.00); Potassium, Blood 3.8 mmol/L (3.5-5.5)
--- NOTE | 2020-09-26 18:50 | NUR ---
alert but takes some time to wake up, when first awakened garbeled speech and still living in dream world but wakes up and can carry on a coherent conversation, spoke in length and detail to dr dahl/last four weeks, mouth breather who destats when sleeping but recovers quickly if awakened and breathing through her nose, bsr shared with noc nurse and pt
--- NOTE | 2020-09-26 21:11 | NUR ---
ASSUMPTION OF CARE. AOX2, KNOWS PLACE, AND SELF. UNABLE TO STATE DAY AND TIME. SPEECH IS GARBLED. SHE DID RECOGNIZED IT AND CLEARED IT UP. ASKED IF NORMAL FOR HER SHE SAID NO. "I THINK ITS THE MEDS" SHE STATED. SHE THEN DOZED OFF. AWAKES EASILY. NEURO SHOWED N/T IN FEET BUT STATIONARY STEAM ENGINEER WERE EQUAL, ALONG WITH DORSAL FLEXTION/EXTENSION. DID REPORT PAIN 9/10 IN NECK AND SHOULDER SHE DENIED TYLENOL. THEN A FEW MINUTES LATER SAID SHE HAD NO PAIN. SATS 95% ON 3 L. SHE DID FEEL SOB, SAT HER STRAIGHT UP IN BED, THIS RESOLVED. COUGH NON-PRODUCTIVE. WILL CONTINUE TO MONITOR. CALL LIGHT IN REACH.
--- NOTE | 2020-09-27 05:42 | NUR ---
SHIFT SUMMARY: AOX2, DOES NOT KNOW DATE, MONTH OR YEAR. FORGETS WHO I WAS SEVERAL TIMES. DOES FOLLOW DIRECTION. GARBLED SPEECH T/O THE NIGHT BUT IS ABLE TO RECONGIZE IT AND TRIES TO MAKE HER SPEECH CLEAR. LISA, FALLS ASLEEP EASILY. INCONTIENT OF URINE AND STOOL. WHEN ASLEEP SHE CONTINUED TO PULL OFF HER CONTINUOUS BIOX TO THE POINT SHE REFUSED TO HAVE IT BACK ON. TENDS TO TALK IN HER SLEEP AND IS VERY RESTLESS. LUNG SOUNDS WITH WHEEZES T/O AND VERY DIMINISHED IN BASES. BREATHING PATTERN WOULD GO FROM FAST WITH ACCESSORY MUSCLE USE TO REGULAR ALL IN FEW MINUTES WHILE ASLEEP. SATS WOULD DROP DOWN TO 85% THEN BACK UP. INCREASED HER OXYGEN TO 4 LITERS WHICH DID NOT MAKE ANY DIFFERENCE. BREATHING TREATMENTS WERE NOTED NOT TO MAKE ANY CHANGES WELL. COULD BENIFIT FROM [facility] LAB WORK AND MAYBE LOW DOSE OF STERIOD TO HELP KEEP AIRWAY OPEN OR MAYBE SLEEP STUDY AND CPAP. WILL DISCUSS WITH DAYSHIFT. CALL LIGHT IN REACH, BED ALARM ON.
[2020-09-27 06:05] LABS: Albumin, Blood 2.9 g/dL (3.4-5.0); Anion Gap 7 mmol/L (6-16); Blood Urea Nitrogen 26 mg/dL (8-24); Bun/Creatinine Ratio 17.7 (12.0-20.0); CO2, Blood 25 mmol/L (21-32); Chloride, Blood 101 mmol/L (98-108); Creatinine, Blood 1.47 mg/dL (0.40-1.00); Glomerular Filtration Rate 36 (60-); Glucose, Blood 105 mg/dL (70-99); Phosphorus, Blood 3.2 mg/dL (2.5-4.9); Potassium, Blood 3.8 mmol/L (3.5-5.5); Sodium, Blood 133 mmol/L (136-145); Thyroxine (T4) 7.2 ug/dL (4.8-13.9)
--- NOTE | 2020-09-27 17:53 | NUR ---
SHIFT SUMMARY: NO ACUTE EVENTS. PATIENT REPORTED SHE USES O2 @ 2 L/MIN NC AT HOME; O2 SAT WAS 96% ON 4 L/MIN THIS MORNING, SO TITRATED DOWN TO HOME DOSE WITH RESULTING SAT 88-93%. C/O PAIN IN L POSTERIOR SHOULDER; RELIEVED WITH LIDOCAINE PATCH. INTERMITTENT CONFUSION, ESPECIALLY UPON WAKING, ALSO TALKS AND GESTURES IN HER SLEEP. FUROSEMIDE GIVEN WITH GOOD RESULT, AND PT STATED SHE FEELS THAT SHE IS BREATHING A LITTEL BETTER. GETTING UP TO BSC WITH 1-2 PERSON ASSIST AND FWW.
--- NOTE | 2020-09-27 20:49 | NUR ---
ASSUMED CARE. AOX2, MORE ALERT AND ORIENTED THEN YESTERDAY. BUT STILL FOLLOWING ASLEEP OFTEN. STATES SHE FEELS REAL SOB, RESPIRATION INCREASED. REPOSITIONED IN BED, SATS UP TO 97%, BREATHING IMPROVED. LS DIMINISHED, AND COURSE. SOME EDEMA IN HIPS AND LEGS. NO COUGH NOTED. NO CONGESTION. DENIES PAIN AT THIS TIME. CALL LIGHT IN REACH, BED ALARM ON.
--- NOTE | 2020-09-28 06:09 | NUR ---
SHIFT SUMMARY: LUCIANA IS MORE ALERT AND ORIENTED THEN PREVIOUS NIGHT. THE NIGHT WENT ON SHE DID GET MORE CONFUSED DUE TO INSOMNIA. SHE WOULD PASS OUT FOR FEW MINUTES THEN UP FOR A PERIOD OF TIME. THIS WENT ON ALL NIGHT. SHE IS JUST GETTING TO FALL ASLEEP FOR LONGER PERIODS. THIS LACK OF SLEEP CAUSES MORE CONFUSION AND DISORIENTATION. LUNG SOUNDS STILL WITH SOME CRACKLES BUT SHE IS BREATHING BETTER. O2HAS REMAINED ON 2 LITERS SATS HAVE BEEN 94-95% WHEN THE BIOX IS WORKING RIGHT ON HER. VERY LITTLE COUGH, NO PRODUCTION. DECREASE IN BM. ABLE TO GET UP WITH SBA TO BSC. EDEMA STILL PRESENT IN UPPER LEGS. VSS/AFEBRILE. BED ALARM ON, CALL LIGHT IN REACH.
[2020-09-28 06:30] LABS: Bun/Creatinine Ratio 16.4 (12.0-20.0); Calcium, Blood 8.3 mg/dL (8.5-10.1); Creatinine, Blood 1.46 mg/dL (0.40-1.00); Potassium, Blood 3.9 mmol/L (3.5-5.5)
--- NOTE | 2020-09-28 15:36 | NUR ---
PATIENT ASKED ABOUT D/C HOME TODAY. EXPLAINED TO HER THE PLAN OF DISCHARGING TOMORROW AND GOING TO [facility] AND THAT HER NIECE WAS PLANNING THE MOVE. PATIENT EXPRESSED SURPRISE AND DISMAY AT HEARING THIS SHE STATED "NO ONE HAS TALKED TO ME ABOUT THIS. I CAN'T GO WITHOUT MY AND HE WOULDN'T GO WITHOUT ME." THIS AUTHOR SPOKE TO Yefri RICHARDS CM, WHO CONFIRMED THIS PLAN. DIALLED PT'S NIECE JOHNSON, HAD PT SPEAK TO HER REGARDING PLAN FOR TOMORROW.
--- NOTE | 2020-09-28 17:56 | NUR ---
SHIFT SUMMARY: NO ACUTE EVENTS. SHE DISCUSSED D/C PLANS WITH NIECE AND SPOUSE AND IS MORE CALM ABOUT MOVING TO [facility] TOMORROW. O2 @ 2 L/MIN NC, BREATH SOUNDS AND DYSPNEA MUCH IMPROVED, NO COUGH. DENIED PAIN. IS REFUSING TO WEAR CONTINUOUS OXIMETRY. WORKING WITH PT/OT, GETTING UP TO BSC WITH FWW, BALANCE AND STRENGTH HAVE ALSO IMPROVED. TOLERATING PO INTAKE. BM'S HAVE SLOWED DOWN TO 1-2 SMALL PER SHIFT.
--- NOTE | 2020-09-28 17:58 | NUR ---
Palliative care visit made today. Unable to locate note from yesterday's visit, but it was brief as she was busy with phone calls and other interruptions. Today we had a long visit, and discussed her upcoming discharge and beginning chemotherapy. She states she has no idea what the treatment is, or anything about it other than it will cause a cold sensitivity. She began to cry when I asked her if there was any discussion of prognosis. She states she will continue to "fight like hell no matter what". 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 Her s/o is at her bedside and he seems supportive. She mentioned something about needing to find a place to stay but quickly changed the subject. Plan to see her again tomorrow before discharge.
--- NOTE | 2020-09-28 18:06 | NUR ---
Spiritual care note: Mrs. Nunes appeared a bit confused this afternoon. she insisted that she was going to be discharged home this evening and was very concered about her hearing aids. I was able to calm her with spiritual college and career counselor and prayer. No family present. I will remain available.
--- NOTE | 2020-09-29 04:30 | NUR ---
SHIFT SUMMARY- PT. A&O, FORGETFUL AT TIMES. MENTATION APPEARES TO BE IMPROVING. NO COMPLAINTS OF PAIN OR DISCOMFORT T/O THE NIGHT. PT. STATED HAS CHRONIC INSOMMNIA AND UNABLE TO SLEEP DURING THE NIGHT, REFUSED SLEEP AID. PT. ABLE TO GET UP TO BSC W/WALKER AND NURSE ASSIST. ON 2L NC WHICH IS BASELINE, VSS. PT. ANTICIPATING D/C TO ASSISTED LIVING TODAY. CALL LIGHT WITHIN REACH AND SIDE RAILS UPX2. WILL CONT TO MONITOR.
--- NOTE | 2020-09-29 11:30 | NUR ---
notified ERROL Urban on note on icorrect pt. She will amend.
--- NOTE | 2020-09-29 12:28 | NUR ---
DISCHARGE DISCHARGE MEDICATIONS AND INSTRUCTIONS EXPLAINED TO PATIENT AND PATIENT'S NIECE. THEY STATED UNDERSTANDING. NIECE BROUGHT IN PORTABLE OXYGEN. PATIENT DID NOT HAVE IV ACCESS. [facility] CALL[facility] TO [facility]LLOW [facility]. THEY WILL CALL PATIENT AT HOME. BELONGINGS WITH PATIENT. PATIENT TRANSFERED TO PRIVATE VEHICLE VIA WHEELCHAIR.
== END 2020-09-29 12:22 | disposition home or self-care (01) ==
LOC: ER 08:33 → MEDS 08:34
PROVIDERS: Emergency Medicine; Internal Medicine; Nurse Practitioner Acute Care; Physician Assistant; ADMIT Internal Medicine
DX: G92 Toxic encephalopathy (principal); R53.1 Weakness; R15.9 Full incontinence of feces; A04.72 Enterocolitis due to Clostridium difficile, not specified as recurrent; J96.21 Acute and chronic respiratory failure with hypoxia; E86.0 Dehydration; F03.90 Unspecified dementia, unspecified severity, without behavioral disturbance, psychotic disturbance, mood disturbance, and anxiety; I13.0 Hypertensive heart and chronic kidney disease with heart failure and stage 1 through stage 4 chronic kidney disease, or unspecified chronic kidney disease; E87.1 Hypo-osmolality and hyponatremia; E11.22 Type 2 diabetes mellitus with diabetic chronic kidney disease; N18.30 Chronic kidney disease, stage 3 unspecified; I50.32 Chronic diastolic (congestive) heart failure; G11.9 Hereditary ataxia, unspecified; I48.91 Unspecified atrial fibrillation; I35.0 Nonrheumatic aortic (valve) stenosis; K21.9 Gastro-esophageal reflux disease without esophagitis; J44.9 Chronic obstructive pulmonary disease, unspecified; I25.2 Old myocardial infarction; Z88.8 Allergy status to other drugs, medicaments and biological substances; Z79.82 Long term (current) use of aspirin; Z79.02 Long term (current) use of antithrombotics/antiplatelets; Z86.718 Personal history of other venous thrombosis and embolism; Z86.711 Personal history of pulmonary embolism; Z99.81 Dependence on supplemental oxygen; Z86.73 Personal history of transient ischemic attack (TIA), and cerebral infarction without residual deficits; Z77.22 Contact with and (suspected) exposure to environmental tobacco smoke (acute) (chronic); Z91.81 History of falling; Z87.440 Personal history of urinary (tract) infections
CPT/HCPCS: 0097U; 36415; 51701; 70450; 71046; 73060; 73502; 80048; 80053; 80069; 81001; 82550; 82553; 84436; 84443; 85025; 87324; 92523; 94640; 94664; 94760; 94762; 96372; 97110; 97116; 97162; 97166; 97530; 99285-25; A9270; C9113; G0378; J1644; J7030

== ENCOUNTER 2020-11-23 09:33 | Emergency (ER) | payer OTHER ==
[~2020-11-23] VITALS: Ht 177.8 cm; Wt 81.7 kg
== END 2020-11-23 11:31 | disposition home or self-care (01) ==
LOC: ER 09:33
DX: S06.9X9A Unspecified intracranial injury with loss of consciousness of unspecified duration, initial encounter (principal); S13.4XXA Sprain of ligaments of cervical spine, initial encounter; J44.9 Chronic obstructive pulmonary disease, unspecified; I13.0 Hypertensive heart and chronic kidney disease with heart failure and stage 1 through stage 4 chronic kidney disease, or unspecified chronic kidney disease; N18.30 Chronic kidney disease, stage 3 unspecified; E11.22 Type 2 diabetes mellitus with diabetic chronic kidney disease; I50.9 Heart failure, unspecified; Z79.82 Long term (current) use of aspirin; Z88.8 Allergy status to other drugs, medicaments and biological substances; W07.XXXA Fall from chair, initial encounter; Y92.009 Unspecified place in unspecified non-institutional (private) residence as the place of occurrence of the external cause
CPT/HCPCS: 70450; 72125; 99284-25